=== PATIENT | female | born 1945 | race Caucasian/White ===

== ENCOUNTER → 2017-04-22 13:28 | Outpatient (CLI) | payer MEDICARE, OTHER, SELFPAY ==
[2017-04-22 16:15] LABS: Ferritin 570 ng/mL (8-252); Iron 78 ug/dL (50-170); Iron Binding Capacity,Total 204 ug/dL (250-450); PERCENT IRON SATURATION 38.2 % (15.0-55.0)
== END ==
PROVIDERS: Family Provider Nurse Practitioner Primary Care; PCP Nurse Practitioner Primary Care; Visit Provider Internal Medicine Nephrology
DX: N18.4 Chronic kidney disease, stage 4 (severe) (principal); D63.1 Anemia in chronic kidney disease
CPT/HCPCS: 36415; 82728; 83540; 83550

== ENCOUNTER 2017-07-25 13:00 | Outpatient (RCR) | payer MEDICARE, OTHER, SELFPAY ==
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
--- NOTE | 2017-07-25 13:00 | DT_ITS ---
This patient was seen during an EMR downtime July 25, 2017 - August 01, 2017. This patient may have a combination of paper and electronic documentation or all paper documentation. All documentation is viewable within the e-chart portion of [facility] for each patient visit.
--- NOTE | 2017-08-21 11:55 | HP.PTDCSUM ---
HP - PT D/C Summary It has been my pleasure to treat ISMAEL Cole LOSINGER under orders from Yordan Patten, for the diagnosis of OA LEFT HIP for a total of 8 visit(s). Discharge Date: 07/25/17 Please see the following information for a summary of their discharge status. - Subjective Subjective: PATIENT REPORTS THAT HANGING IN THE POOL RELIEVES HER PAIN. SOME OF THE EX'S MADE HER BACK/BUTTOCKS SORE. NO LEFT HIP PAIN. NO RIGHT HIP PAIN. ALEXANDREA BUTTOCK PAIN CURRENTLY 5/10 SORE AND IT COMES AND GOES. L LOW BACK PAIN 4/5. OVER-ALL - ABLUT THE SAME BUT IT FELT GOOD AMAN IN THE POOL. STATES SHE WAS REFERRED TO DR. HARMON BY DR. PATTEN AND UPCOMING APPOINTMENT TUESDAY. - Pain R hip Pain Intensity (Out of 10): 5 L Hip Pain Intensity (Out of 10): 0 LB Pain Intensity (Out of 10): 4 - Objective Objective/Function: THIS PATIENT AMBULATES INDEP'LY INTO PT WITH MILD SOB, DECREASED CADANCE, INCREASED TRUNK FLEX AND NO AD. UNALBE TO INDEP TRANSFER SIT TO STAND WITHOUT UE ASSIST. MMT: ALEXANDREA LE'S 5/5 EXCEPT HIPS 4/5. LUMBAR MVMT LOSS: FLEX - VERY MINIMAL WITH INCREASED ALEXANDREA BUTTOCK PAIN. EXT - RICK, RIGHT SG - RICK, LEFT SG - RICK. C/O MILD INCREASED LBP WITH LUMBAR ROM TESTING. LIMITED LEFT HIP ROM ALL PLANES. LEFT GROIN PAIN WITH LEFT HIP FLEX/IR/ER TESTING. POSITIVE SHELLEY TEST LEFT. Due to electronic downtime procedure, the information from July 25 2017 through July 31 2017 was electronically scanned into the medical record - Goals Goal 1:: DECREASE C/O LLE PAIN Goal Progress: Not Progressing Goal 2:: IMPROVE STANDING, WALKING AND ADL FUNCTION Goal Progress: Not Progressing Goal 3:: INSTRUCT IN PROPHYLAXIS Goal Progress: Not Progressing - Plan Plan: D/C DUE TO LACK OF PROGRESS. PATIENT PLANS TO SEE DR. HARMON 07/28/17. - D/C Information If there are questions or concerns regarding this patient's physical therapy, please feel free to call me at [phone]. Thank you for the referral of this patient. Sincerely, Lin Servin
== END 2017-07-25 19:00 | disposition home or self-care (01) ==
LOC: PT 13:00
PROVIDERS: Family Provider Nurse Practitioner Primary Care; PCP Nurse Practitioner Primary Care; Visit Provider Orthopaedic Surgery
DX: M16.12 Unilateral primary osteoarthritis, left hip (principal)
CPT/HCPCS: 97113; 97162; 97164; 97530

== ENCOUNTER 2017-11-16 09:46 | Inpatient (IN) | payer MEDICARE, OTHER, SELFPAY ==
[2017-11-15 09:35] VITALS: BP 144/70; PULSE 55; RESP 16; TEMP 37.2; O2SAT 97; BMI 29.9
[2017-11-15 10:54] LABS: Absolute Lymphocyte Count 1.85 X10^3/ul (0.83-4.51); Absolute Neutrophil Count 6.4 X10^3/uL (2.0-7.7); Basophil# 0.05 X10^3/uL; Basophil% 0.5 % (0-1); Eosinophil# 0.38 X10^3/uL; Hematocrit 28.1 % (37-47); Hemoglobin 8.7 g/dl (12.0-15.0); Lymphocyte # 1.85 X10^3/ul (4.0); Lymphocyte % 19.5 % (19-41); Mean Corpuscular Hgb 29.3 pg (27.0-32.0); Mean Corpuscular Volume 94.6 fL (81-99); Monocyte# 0.82 X10^3/uL; Monocyte% 8.6 % (0-10); Neutrophil # 6.36 X10^3/uL (2.7-7.7); Platelet Count 235 K/mm3 (150-450); RBC Distribution Width CV 15.3 % (11.6-14.6); RBC Distribution Width SD 52.4 fl (35.1-43.9); Red Blood Count 2.97 M/mm3 (4.2-5.4); White Blood Count 9.5 K/mm3 (4.4-11.0)
[2017-11-15 10:58] LABS: POSITIVE COUNT NO; POSITIVE DIFFERENTIAL NO; POSITIVE MORPHOLOGY NO
[2017-11-15 11:01] LABS: International Normalized Ratio 1.1; Partial Thromboplast Time 32.4 Seconds (24.1-36.2); Prothrombin Time (Protime)PT. 14.4 SECONDS (11.7-14.9)
[2017-11-15 11:25] LABS: Anion Gap 9 (5-15); BUN 46 mg/dL (7-18); BUN/Creat Ratio 22.2 RATIO (10-20); Calcium,Total 9.3 mg/dL (8.5-10.1); Chloride 108 mmol/L (98-107); Creatinine, Serum 2.07 mg/dL (0.55-1.02); EST Glomerular Filtration Rate 25 mL/min (>60); Est Glom Filt Rate - Afr Amer 30 mL/min (>60); Estimated Creatinine Clearance 20.59 ml/min; Glucose 82 mg/dL (74-106); Potassium 4.2 mmol/L (3.5-5.1); Sodium Level 140 mmol/L (136-145)
--- NOTE | 2017-11-15 16:23 | SDCEKG_ITS ---
Test Reason : Blood Pressure : / mmHG Vent. Rate : 056 BPM Atrial Rate : 056 BPM P-R Int : 186 ms QRS Dur : 078 ms QT Int : 436 ms P-R-T Axes : 030 -18 001 degrees QTc Int : 420 ms Sinus bradycardia Voltage criteria for left ventricular hypertrophy Abnormal ECG Confirmed by DEBI PEÑA, VINH ([id number]), newspaper or periodical editor JESS BIRD ([id number]) on 11/18/2017 1:37:52 PM Referred By: Jose L Anglin Confirmed By:VINH CARRERA MD
[2017-11-16] VITALS (11 sets, daily range): BP systolic 111–187; BP diastolic 63–99; PULSE 18–60; RESP 16–18; TEMP 36.1–36.9; O2SAT 94–99; BMI 29.9
[2017-11-16] MEDS: Acetaminophen 500 MG Tablet 1000 MG PO ×2 (10:35→22:06)
[2017-11-16] MEDS: oxyCODONE HCl Cr 10 MG Tablet PO (10:35)
[2017-11-16] MEDS: Cefazolin 2 GM in 0.9% Normal Saline 100 ML IV (11:50)
--- NOTE | 2017-11-16 13:21 | PCM.OPRPT ---
Report of Operation Date of Procedure: 11/16/17 Pre-Operative Diagnosis: Left shoulder osteoarthritis. left shoulder 3 part proximal humerus fracture Post-Operative Diagnosis: Left shoulder osteoarthritis. Left shoulder 3 part proximal humerus fracture Surgery/Procedure Performed:: Left reverse total shoulder replacement Description of Surgical Findings:: Shoulder tuberosities repaired advocacy director: Jose A Booth Type of Anesthesia:: General Anesthesiologist: Henrry Tobin Special Medications: 2 g Ancef, 1 g TXA at incision, 1 g TXA closure, 10 mg Decadron, joint cocktail (5 mg Duramorph, 30 mL of 0.5% Ropivicaine, 1000 units of epinephrine, 30 mg of Toradol), 1 g vancomycin Specimen's removed: Femoral head fracture fragment Estimated Blood Loss (mL): 100 Fluids Replaced: 1200 mL crystalloid Description of Procedure: Components used 1. Equinox glenoid baseplate from zerved for reverse TSA 2. Cande reunion 32 mm, +2 mm Glenosphere 3. Cande reunion 32 mm, 4 mm humeral liner 4. Equinox reverse TSA humeral adapter tray for mm 5. Equinox humeral stem fracture stem 12 mm size Brief history/Operative indications: 72 yo F with history of left shoulder pain the part proximal humerus fracture. After discussion of risk and benefits of reverse total shoulder replacement including but not limited to blood loss, DVTs, PEs, nerve vessel damage, infection, general risk of anesthesia including loss of life, instability and stiffness patient demonstrating understanding wish to proceed was able to sign informed consent. Medical clearance was obtained. Procedure: On the date of the procedure, patient's L upper extremity was marked in the preoperative area. Patient was taken back to the operating room where they were placed on the table in the supine position. Anesthesia assumed control of the C-spine and airway, then administered anesthetic. All bony prominences were identified well-padded, the head was secured and the patient was placed in the beachchair position at about 35? inclination. Anesthesia remained in control of the C-spine airway throughout the remainder of the procedure. Patient was then appropriately fastened to the table and the L upper extremity was prepped in a sterile fashion. The surgeons then scrubbed. Upon reentering the room, the L upper extremity was draped in a sterile fashion and the incision was marked out. Timeout was called, everyone agreed upon the side, the site, the procedure to be performed, patient identity and antibiotics given. Incision was taken down through skin and subcutaneous tissue, fat down to fascia. The stripe of the deltopectoral interval and cephalic vein were identified and blunt dissection was used to retract the deltoid. The cephalic vein was retracted laterally. Clavipectoral fascia was then incised and a cobra retractor was placed in the wound. The proximal one third of the pectoralis major insertion was released. Pectoralis tendon insertion was used to tenodesed the biceps tendon which was identified in the bicipital groove. Tenodesis was done with #1 Vicryl. Proximally we followed the biceps tendon after transecting it into the rotator interval. The rotator interval was split and the arm was externally rotated. The split was 1 cm medial to the bicipital groove. A lesser tuberosity fragment was created performing an osteotomy and tagged with #2 FiberWire. We released down the anterior portion of the humeral head and a beasley elevator was used to release the inferior portion of the humeral head. The arm was externally rotated femoral head fragment was identified and removed from the wound. The greater tuberosity fragment was then identified and pulled from the posterior shoulder and tagged with a #2 FiberWire. Once the fracture fragments were identified and tagged in the humeral head fragment was removed the humerus was retracted out of the way and the glenoid was exposed. After exposing the glenoid, the labrum and the remaining proximal biceps were debrided. At this time we are able to view the entire outer edge of the glenoid. A central pin was placed we sequentially reamed over this central pin to 32mm. Once this was completed the central pedicle was drilled. The glenoid baseplate was impacted into place. Wound was closely irrigated out with normal saline we then drilled sequentially for 2 screws. Screws were placed superiorly and inferiorly and tightened down the screws. Once the screws were appropriately tightened into place the glenoid baseplate was compressed against the exposed subchondral bone. A 32 mm, +2 mm glenosphere was impacted into place engaging the Chen taper. Attention was then turned towards the humerus. The humerus was again externally rotated exposing the proximal portion of the humerus. Central canal finder was then used to open up the canal. We reamed to a 12mm reamer. We then broached to a 12mm stem. We trialed the 4mm liner, with the 4mm humeral baseplate. We obtained an adequate reduction at this time with a nice stable shoulder. Good internal rotation to the gluteus, forward elevation to 140?, external rotation to 20?. Final components were then assembled on the back table, trials were removed and the wound was copiously irrigated with normal saline after dislocating the shoulder. Once the final components were assembled they were impacted into place. Shoulder was then reduced and found to be stable with good range of motion. The wound was copiously irrigated out normal saline and the tuberosity fragments were repaired using FiberWire sutures. The wound was then copiously irrigated out with a 1 L normal saline lavage. The deltopectoral fascia was then closed using #1 Vicryl skin was closed using 2-0 Vicryl interrupted sutures and final skin closure was done with 3-0 Monocryl. Steri-Strips are placed for final skin closure. Sterile dressing was placed patient was then placed in a sling and awakened by anesthesia. Patient was then transferred to the PACU for recovery. Postoperative plan: Patient will be admitted to the hospital overnight. They will get physical therapy starting in 2 weeks with normal postoperative regimen. Patient is not able to take aspirin for DVT prophylaxis and is also a fall risk therefore based on her overall risk from a upper extremity injury will not place her on DVT prophylaxis at this time. The first postoperative appointment will be in 2 weeks for wound check and initiation of phase 1 physical therapy. During the course of the procedure the physician promotional advertising assistant played a vital role. His intimate knowledge of my steps in the procedure aided in safe and expedient completion of the procedure. The PA played a vital rolls in positioning particularly in obtaining the appropriate beach chair position and securing the patient's body and head to the table. The PA was also vital in the retraction of soft tissues during the exposure and especially the glenoid work as this is a vital part of the procedure to prevent neurovascular damage. the PA was also vital and protecting soft tissues during times of bony cuts and reaming. He also played a vital role in closure with my direct supervision. The PA was also important during reduction and dislocation of the joint and trials intraoperatively. Grafts/Implants Used: Magdiel reunion reverse total shoulder, fracture stem - Complications None - Admit VTE Documentation VTE Present on Admission: No VTE Mechan Device Prophylaxis: SCD's VTE Pharm Prophylaxis ordered?: No Reason prophylaxis not ordered:: Medical Contraindication - Patient unable to take aspirin
[2017-11-16] MEDS: Vancomycin IV 1,000 MG/200 ML BAG 200 MG IV (13:41)
--- NOTE | 2017-11-16 14:28 | RAD_ITS ---
STUDY: X-RAY - LEFT SHOULDER REASON FOR EXAM: Female, 72 years old. Total shoulder replacement. TECHNIQUE: Single frontal view(s) of the shoulder. COMPARISON: None. FINDINGS: The patient is status post left reverse shoulder replacement. There is good alignment. Postoperative soft tissue changes. RAD/Shoulder One View IMPRESSION: Status post left reverse shoulder replacement. There is good alignment. Postoperative soft tissue changes. Increased markings at the left lung base suggestive of left basilar atelectasis Electronically Signed: Zachariah Cano MD at 15:07 EDT Tel [phone], Service support ,
[2017-11-16] MEDS: Lactated Ringers 1,000 ML 125 ML IV (15:42)
[2017-11-16] MEDS: Losartan Potassium 100 MG Tablet PO (15:42)
[2017-11-16] MEDS: Ferrous Sulfate 325 MG Tablet PO (18:16)
[2017-11-16] MEDS: Folic Acid 1 MG Tablet PO (18:16)
[2017-11-16] MEDS: Hydroxychloroquine 200 MG Tablet PO (18:16)
[2017-11-16] MEDS: Cefazolin 1 GM/50 ML BAG IV (19:58)
[2017-11-16] MEDS: Pantoprazole Sodium 40 MG Tablet PO (20:00)
[2017-11-16] MEDS: Gabapentin 100 MG Capsule PO (22:06)
[2017-11-16] MEDS: Atorvastatin Calcium 20 MG Tablet PO (22:06)
[2017-11-16] MEDS: Allopurinol 100 MG Tablet 200 MG PO (22:07)
[2017-11-16] MEDS: buPROPion (XL) 300 MG TABLET.XL PO (22:09)
[2017-11-17 01:37] VITALS: BP 137/71; PULSE 56; RESP 16; TEMP 36.8; O2SAT 94
[2017-11-17] MEDS: Cefazolin 1 GM/50 ML BAG IV (03:58)
[2017-11-17] MEDS: 0.9% NaCl Peripheral Flush Adult/Peds IV (03:58)
[2017-11-17] MEDS: oxyCODONE 5 MG Tablet PO ×2 (05:14→11:59)
[2017-11-17] MEDS: Acetaminophen 500 MG Tablet 1000 MG PO (06:00)
[2017-11-17 07:31] VITALS: BP 148/63; PULSE 66; RESP 14; TEMP 36.6; O2SAT 95
[2017-11-17] MEDS: Calcitriol 0.25 MCG Capsule 0.5 MCG PO (07:43)
[2017-11-17] MEDS: Hydroxychloroquine 200 MG Tablet PO (07:44)
[2017-11-17] MEDS: Losartan Potassium 100 MG Tablet PO (07:44)
[2017-11-17] MEDS: Atenolol 50 MG Tablet PO (07:44)
[2017-11-17] MEDS: Folic Acid 1 MG Tablet PO (07:44)
[2017-11-17] MEDS: Gabapentin 100 MG Capsule PO (07:44)
[2017-11-17] MEDS: Ferrous Sulfate 325 MG Tablet PO (07:44)
[2017-11-17] MEDS: Glucerna Shake 120 ML LIQUID PO (07:47)
--- NOTE | 2017-11-17 10:03 | PCM.PN.ORT ---
Subjective: The patient was sitting in bed upon examination. Patient denies any chest pain, shortness of breath, dizziness, lightheadedness, nausea or vomiting, or calf pain. Pain is not controlled on medications. She is currently complaining of 9/10 pain in the left shoulder. She does not feel the medications are helping. Patient does see pain management doctor for low back problems and has been on narcotics. No adverse overnight events. Objective: Dressing is C/D/I Ultra-sling fitting appropriately Sensation intact to axillary, radial, median, and ulnar distribution Motor intact to AIN, PIN, and ulnar nerve - Physical Exam General: Alert, Oriented x3, Cooperative, No apparent distress Vital Signs Temp Pulse Resp BP Pulse Ox 97.8 F 66 14 148/63 H 95 11/17/17 07:31 11/17/17 07:31 11/17/17 07:31 11/17/17 07:31 11/17/17 07:31 Oxygen Delivery Method Room Air Weight: 79 kg Body Mass Index (BMI) 29.9 Intake and Output for Last 24 Hours 11/15/17 11/16/17 11/17/17 23:59 23:59 23:59 Intake Total 3043 / 3043 1089.9 / 1089.9 Output Total 850 / 850 1100 / 1100 Balance 2193 / 2193 -10.1 / -10.1 Microbiology Past 72 Hours 11/15/17 10:05 Nasal Screen MRSA/MSSA - Final Swab (Method) Laboratory Tests Past 24 Hrs 11/16/17 10:05 Blood Type A POSITIVE Antibody Screen NEGATIVE Medical Necessity - Tobacco Use Smoking Status: Never smoker Assessment/Plan All Active Problems History of arthroplasty of right hip (Acute) 1. S/P left reverse total shoulder arthroplasty secondary to osteoarthritis and 3 part proximal humerus fracture POD #1 2. Continue Pain Medications: Tylenol and OxyIR, MS Contin will be added today due to pain not being controlled 3. PT/OT: Continue UltraSling at all times, okay to come out to work on range of motion of the left elbow, hand, and wrist 3-4 times daily. No range of motion of left shoulder until 2-week postop visit. Plan will be for outpatient physical therapy after 2-week follow-up. 4. Encouraged Incentive Spirometry 5. Disposition: Plan will be for possible discharge home today if pain is controlled on additional medication. Prescriptions will be attached to chart. Patient will follow-up per postop instructions.
[2017-11-17] MEDS: morphine SR 15 MG Tablet PO (10:07)
--- NOTE | 2017-11-17 10:14 | DCINST_ITS ---
Discharge Diet: No Restrictions Discharge Activity: May Not Drive May shower in (days): 1 - Turned dressing away from water Ice area for (Minutes): 20 - Ice area for 20 minutes each hour while awake Weight Bearing Status: No weight bearing - Left upper extremity Call your doctor if your incision/area has: Continuous Slow Oozing, Sudden Increased Bleeding, Increased Pain/ Swelling, Increased Redness, Foul Smelling Discharge Call your doctor if you observe: Fever of 101 or Higher, Coldness, Increased Pain, Numbness or Tingling, Change in Color Remove Dressing in (days):: 4 - Okay to remove dressing on November 21, 2017 Allergies/Adverse Reactions: Allergies aspirin Adverse Reaction (Verified 11/15/17 09:25) not allowed to take aspirin codeine Adverse Reaction (Verified 11/15/17 09:25) Nausea morphine Adverse Reaction (Verified 11/15/17 09:25) Nausea NSAIDS (Non-Steroidal Anti-Inflamma Adverse Reaction (Verified 11/15/17 09:25) not supposed to take ramipril [From Altace] Adverse Reaction (Verified 11/15/17 09:25) COUGH Medications to take at Discharge Allopurinol [Zyloprim] 200 mg PO QHS 11/06/15 Atenolol [Tenormin (beta steve)] 50 mg PO DAILY 11/06/15 Gabapentin [Neurontin] 100 mg PO DAILY 11/06/15 Gabapentin [Neurontin] 100 mg PO QHS 11/06/15 Hydroxychloroquine [Plaquenil] 200 mg PO BIDCM 11/06/15 Leflunomide [Arava] 20 mg PO DAILY 11/06/15 Omeprazole [Prilosec] 40 mg PO QHS 11/06/15 Simvastatin [Zocor] 40 mg PO QHS 11/06/15 buPROPion XL [Wellbutrin Xl] 300 mg PO QHS 11/06/15 Zolpidem Tartrate [Ambien] 5 mg PO QHS PRN 03/23/16 Folic Acid 0.8 mg PO DAILY@0800 05/17/16 Calcitriol [Rocaltrol] 0.5 mcg PO DAILY 11/15/17 Darbepoetin Asúl in Polysorbat [Aranesp] 100 mcg SC PRN PRN 11/15/17 Iron Polysaccharide Complex [Ferrex 150] 150 mg PO DAILYCM 11/15/17 Losartan Potassium [Cozaar] 100 mg PO DAILY 11/15/17 Acetaminophen [Tylenol] 1,000 mg PO Q8 #90 tab 11/17/17 Oxycodone [Oxyir] 5 - 10 mg PO Q4H PRN PRN 5 Days #60 tab 11/17/17 Senna/Docusate Sodium [Senokot-S] 2 tab PO BID PRN PRN #20 tab 11/17/17 morphine SR tablet [Ms Contin] 15 mg PO BID 4 Days #8 tab 11/17/17 The following prescriptions were given: Oxycodone [Oxyir] 5 - 10 mg PO Q4H PRN PRN 5 Days #60 tab PRN Reason: Pain Acetaminophen [Tylenol] 1,000 mg PO Q8 #90 tab Senna/Docusate Sodium [Senokot-S] 2 tab PO BID PRN PRN #20 tab PRN Reason: Constipation morphine SR tablet [Ms Contin] 15 mg PO BID 4 Days #8 tab Primary Care Physician: Evangelina Reddy NP-C [Primary Care Provider] - Test Results: Test results from this visit will be discussed in further detail at your follow- up appointment, if applicable. Please Follow Up With: Jose A Booth PA-C When: 11/30/17 @ 8:15 am Please Follow Up With: [facility] When: 11/30/17 @ 9:00 am with [place]
--- NOTE | 2017-11-17 10:40 | CASEMGMT ---
CIRILO CHAUDHARY Face to Face with patient for initial transition planning/care coordination assessment. RN NEENA introduced self and role at [facility]. Patient sitting in chair, alert and oriented. Patient willing to participate in assessment and is able to answer all questions appropriately. Care providers, pharmacy, and demographics verified. See link attached. Pt wishes to discharge home, denies need for home health at this time. Pt has follow up appts w/ Javier MCMILLAN and then PT @ [facility] on Nov 30. Pt states she has no further needs or concerns at this time. CM to follow for discharge planning needs that may arise. Disposition Plan: Home w/out-pt PT.
--- NOTE | 2017-11-17 11:15 | CASEMGMT ---
Social Work Note CIRILO Samaniego informed this worker that pt wishes to speak to SW about Living Will, states pt already completed HCPOA but not sure about Living Will. SW looked at chart and both HCPOA and Living Will have been completed and scanned into pt's chart. SW in to speak with pt. Pt's spouse present in room. Pt gave this worker permissions to speak to her in front of her spouse. Pt states that she knew she completed HCPOA but was unsure about Living Will. SW explained that Living Will has also been completed and has been scanned into system at [facility]. Pt requesting copy on Living Will. SW provided pt with copy of Living Will to pt. Pt asked this worker about insurance paying for lift chairs. SW explained that CIRILO CHAUDHARY can follow up with pt in regards to lift chair but per this workers understanding a lift chair would be private pay. Ariane Atwood VERIFICATION MANAGER, MARINATOR
== END 2017-11-17 13:31 | disposition home or self-care (01) | DRG 483 ==
LOC: ACINP 09:47 → MS3 11-17 07:25
PROVIDERS: Admitting Provider Specialist; Family Provider Nurse Practitioner Primary Care; PCP Nurse Practitioner Primary Care; Visit Provider Specialist
PROC: 0RRK00Z Replacement of Left Shoulder Joint with Reverse Ball and Socket Synthetic Substitute, Open Approach (ICD-10-PCS; CPT 23472; principal; 2017-11-16 11:50)
DX: S42.232A 3-part fracture of surgical neck of left humerus, initial encounter for closed fracture (principal); W10.8XXA Fall (on) (from) other stairs and steps, initial encounter; Y92.9 Unspecified place or not applicable; M19.012 Primary osteoarthritis, left shoulder; D64.9 Anemia, unspecified; Z23 Encounter for immunization; E78.00 Pure hypercholesterolemia, unspecified; K21.9 Gastro-esophageal reflux disease without esophagitis; I12.9 Hypertensive chronic kidney disease with stage 1 through stage 4 chronic kidney disease, or unspecified chronic kidney disease; N18.3 Chronic kidney disease, stage 3 (moderate)
CPT/HCPCS: 36415; 73020; 80048; 85025; 85610; 85730; 86850; 86900; 87081; 93005; 97166; C1713; C1776; J7120; 90686; A4216

== ENCOUNTER → 2017-12-02 08:36 | Outpatient (CLI) | payer MEDICARE, OTHER, SELFPAY ==
[2017-12-02] VITALS (7 sets, daily range): BP systolic 132–184; BP diastolic 49–74; PULSE 51–65; RESP 16–18; TEMP 35.8–37.2; O2SAT 99–100; BMI 29.7
[2017-12-02] MEDS: Furosemide 20 MG/2 ML VIAL IV (12:11)
== END ==
PROVIDERS: Family Provider Nurse Practitioner Primary Care; PCP Nurse Practitioner Primary Care; Referring Provider Internal Medicine Hematology & Oncology; Visit Provider Internal Medicine Hematology & Oncology
DX: D64.9 Anemia, unspecified (principal)
CPT/HCPCS: 36430; 86850; 86900; 86920; 86922; J7040; P9016; P9040; A4216; J1940

== ENCOUNTER → 2018-01-16 07:15 | Outpatient (CLI) | payer MEDICARE, OTHER, SELFPAY ==
--- NOTE | 2018-01-16 07:17 | BI_ITS ---
MAMMOGRAPHY - BILATERAL SCREENING REASON FOR EXAM: Female, 72 years old. Routine annual screening examination. PERTINENT HISTORY: Non-contributory. TECHNIQUE: Digital bilateral breast mariaelena (3D mammographic acquisition) in the CC and MLO projections. 2-D mediolateral oblique (MLO) and craniocaudad (CC) views of both breasts were obtained. CAD: Full Field Digital Mammography with Computer Added Detection was performed. COMPARISON: Comparison is made with prior examination dated January 19, 2017 and November 12, 2015. FINDINGS: Breast Composition: There are scattered areas of fibroglandular density. There are no dominant masses or suspicious calcifications. No other significant abnormalities are identified. There has been no significant change since the prior study. BI/SCREENING MAMM (CAD), BILAT IMPRESSION: Stable bilateral screening mammogram. Yearly follow-up mammogram recommended. (A) ASSESSMENT CATEGORY: BIRADS Category 1: Negative. A letter regarding these results will be sent to the patient by the facility within 30 days. Approximately 10% of breast cancers are not detected by mammography. A normal mammogram should not delay biopsy of a clinically suspicious abnormality. [id number] Electronically Signed: Zachariah Cano MD at 10:28 EST Tel [phone], Service support ,
== END ==
PROVIDERS: Family Provider Nurse Practitioner Primary Care; PCP Nurse Practitioner Primary Care; Referring Provider Nurse Practitioner Primary Care; Visit Provider Nurse Practitioner Primary Care
DX: Z12.31 Encounter for screening mammogram for malignant neoplasm of breast (principal)
CPT/HCPCS: 77063; 77067

== ENCOUNTER → 2018-09-13 13:01 | Outpatient (CLI) | payer MEDICARE, OTHER, SELFPAY ==
[2017-12-02 08:58] VITALS: BMI 29.7
--- NOTE | 2018-09-13 | SOF_PTH ---
PATIENT: ISMAEL STANLEY LOC: [facility] U#:[id number] AGE/SX: 79/F ROOM: RE09/13/[address]: Dr. Mitch Landon DDS : 1945 BED: DIS: SPEC #: [id number] RECD: 09/13/18 12:54 STATUS: STEPHANIE BARB #: [id number] CUCO: 09/13/18 00:[address]: Mitch Landon DEPT: SURGICAL PATHOLOGY RECD BY: Merritt Espinosa ENTERED: 09/13/18 13:17 SP TYPE: SOFT TISS OTHR DR: Evangelina Reddy, ROTOR CASTING MACHINE OPERATOR-C Tissues: Mouth, NOS Procedures: Surgery Specimen Level IV HEADER OPERATION: Lip biopsy PRE-OP DIAGNOSIS: Probable fibroma TISSUE SUBMITTED: Soft tissue MICROSCOPIC DIAGNOSIS Lesion of lip, biopsy: Consistent with polypoid fibroma. AM:bean 09/14/18 MICROSCOPIC DESCRIPTION Slides are reviewed. GROSS DESCRIPTION Received is one container labeled with the patient's name and not further designated. The specimen consists of a piece of bain mucosal tissue measuring 0.3 x 0.2 x 0.1 cm. The entire specimen is submitted in one cassette. / SJ:bean 09/13/18 TC:1 CPT: 97550
== END ==
PROVIDERS: Family Provider Nurse Practitioner Primary Care; PCP Nurse Practitioner Primary Care; Referring Provider Dentist Oral and Maxillofacial Surgery; Visit Provider Dentist Oral and Maxillofacial Surgery
DX: D37.01 Neoplasm of uncertain behavior of lip (principal)
CPT/HCPCS: 88305

== ENCOUNTER → 2018-12-25 13:45 | Outpatient (CLI) | payer MEDICARE, OTHER, SELFPAY ==
--- NOTE | 2018-12-25 13:47 | ECHOCS_ITS ---
Reason For Study: SOB Procedure This was a 2D Doppler, Color Flow transthoracic echocardiogram. The study was technically difficult. Contrast injection was performed. Exam performed in department. Left Ventricle Normal LV size. Left ventricular systolic function is normal. The estimated ejection fraction is 65 %. Stage 1 diastolic dysfunction. No regional wall motion abnormalities noted. Right Ventricle Normal RV size. Normal systolic function. Atria Normal left atrium. Normal right atrium. Mitral Valve Normal mitral valve. Tricuspid Valve The tricuspid valve is not well visualized. Mild tricuspid valve insufficiency. Aortic Valve The aortic valve is not well visualized. Mild (1+) aortic valve insufficiency. Pulmonic Valve The pulmonic valve is not well visualized. Great Vessels Normal aortic root. The pulmonary artery is normal size. Normal inferior vena cava. Pericardium/Pleural No pericardial effusion. Medication 22 gauge I.V. with prn adaptor inserted into right arm. Diluted definity 2ml given slow IV push to enhance endocardial definition. MMode/2D Measurements & Calculations LVIDd: 4.2 cm IVSd: 1.3 cm LA dimension: 4.2 cm LVIDs: 2.7 cm LVPWd: 1.1 cm FS: 35.0 % LAV(MOD-bp): 61.8 ml LVAd ap4: 31.9 cm2 SV(MOD-sp4): 60.5 ml LAV(MOD-bp) Indexed: 33.0 ml/m2 EDV(MOD-sp4): 111.4 ml LAV(MOD-sp2): 64.6 ml EDV(sp4-el): 113.6 ml LAV(MOD-sp4): 54.7 ml LVAs ap4: 19.7 cm2 ESV(MOD-sp4): 50.9 ml ESV(sp4-el): 50.8 ml EF(MOD-sp4): 54.3 % EF(sp4-el): 55.3 % SV(sp4-el): 62.8 ml LA A4 area: 19.6 cm2 Time Measurements MV dec time: 0.42 sec Doppler Measurements & Calculations MV E max mike: 60.9 cm/sec Lat Peak E' Mike: 6.1 cm/sec Med Peak E' Mike: 5.7 cm/sec MV A max mike: 113.0 cm/sec E/E' lat: 10.0 E/E' med: 10.7 MV E/A: 0.54 MV V2 max: 118.5 cm/sec MV P1/2t max mike: 78.0 cm/sec Ao V2 max: 101.6 cm/sec MV max P.6 mmHg MV P1/2t: 154.5 msec Ao max P.1 mmHg MV V2 mean: 56.5 cm/sec MV mean P.5 mmHg MV dec slope: 147.9 cm/sec2 MV V2 VTI: 35.5 cm MVA(P1/2t): 1.4 cm2 AI max mike: 440.0 cm/sec LV V1 max: 94.3 cm/sec PA V2 max: 90.6 cm/sec AI max P.4 mmHg LV V1 max P.6 mmHg AI dec slope: 177.4 cm/sec2 AI P1/2t: 726.6 msec Interpretation Summary Normal LV size. Left ventricular systolic function is normal. The estimated ejection fraction is 65 %. Stage 1 diastolic dysfunction. Contrast injection was performed. Ordering Physician: RUPERTO HONEYCUTT Referring Physician: [facility] Doctor, Out of Performed By: Lorenzo Nieto RCS
== END ==
PROVIDERS: Family Provider Nurse Practitioner Primary Care; PCP Nurse Practitioner Primary Care
DX: Z01.818 Encounter for other preprocedural examination (principal); R94.39 Abnormal result of other cardiovascular function study; I12.9 Hypertensive chronic kidney disease with stage 1 through stage 4 chronic kidney disease, or unspecified chronic kidney disease; N18.4 Chronic kidney disease, stage 4 (severe); R06.02 Shortness of breath; D64.9 Anemia, unspecified
CPT/HCPCS: 93306; Q9957; A4216; C8929

== ENCOUNTER → 2019-04-17 13:10 | Outpatient (CLI) | payer MEDICARE, OTHER, SELFPAY ==
--- NOTE | 2019-04-17 13:19 | BI_ITS ---
MAMMOGRAPHY - BILATERAL SCREENING REASON FOR EXAM: Female, 73 years old. Routine annual screening examination. PERTINENT HISTORY: No pertinent history TECHNIQUE: Digital bilateral breast jess (3D mammographic acquisition) in the CC and MLO projections. 2-D mediolateral oblique (MLO) and craniocaudad (CC) views of both breasts were obtained. CAD: Full Field Digital Mammography with Computer Added Detection was performed. COMPARISON: None. FINDINGS: Breast Composition: Scattered breast density There are no dominant masses or suspicious calcifications. No other significant abnormalities are identified. BI/SCREEN MAMM (CAD) W/JESS BILAT IMPRESSION: Stable bilateral screening mammogram. Yearly follow-up mammogram recommended. (A) ASSESSMENT CATEGORY: BIRADS Category 1: Negative. A letter regarding these results will be sent to the patient by the facility within 30 days. Approximately 10% of breast cancers are not detected by mammography. A normal mammogram should not delay biopsy of a clinically suspicious abnormality. [id number] Electronically Signed: Chad Vazquez, at 18:08 EST Tel , Service support ,
== END ==
PROVIDERS: PCP Nurse Practitioner Primary Care; Referring Provider Nurse Practitioner Primary Care; Visit Provider Nurse Practitioner Primary Care
DX: Z12.31 Encounter for screening mammogram for malignant neoplasm of breast (principal)
CPT/HCPCS: 77063; 77067

== ENCOUNTER 2019-05-03 12:43 | Emergency (ER) | payer MEDICARE, OTHER, SELFPAY ==
[2019-05-03 12:44] VITALS: BP 143/86; PULSE 95; RESP 16; TEMP 36.9; O2SAT 95; BMI 30.5
--- NOTE | 2019-05-03 12:54 | EKG12_ITS ---
Test Reason : CP Blood Pressure : / mmHG Vent. Rate : 093 BPM Atrial Rate : 093 BPM P-R Int : 214 ms QRS Dur : 072 ms QT Int : 344 ms P-R-T Axes : 050 -21 032 degrees QTc Int : 427 ms Sinus rhythm with 1st degree A-V block Minimal voltage criteria for LVH, may be normal variant Inferior infarct , age undetermined Cannot rule out Anterior infarct , age undetermined Abnormal ECG Confirmed by ATUL PEÑA, ALENA ([id number]), commercial production editor BERHANE LUCIO ([id number]) on 05/04/2019 1:08:20 PM Referred By: STERLING Confirmed By:WINSTON POLLARD MD
--- NOTE | 2019-05-03 12:57 | RAD_ITS ---
STUDY: X-RAY CHEST REASON FOR EXAM: Female, 73 years old. CP, 2 STENTS PLACED 04-23-2019, WAITING ON OTHER STENT PLACEMENT TECHNIQUE: Single AP portable view of the chest. COMPARISON: None. FINDINGS: EKG electrodes are seen. Electrodes from a pain stimulator device are seen in the region of the T7 vertebrae. Elevation of the right hemidiaphragm. No acute abnormality is seen. There is no demonstrated pleural abnormality. Normal size heart. Normal mediastinum and aminata. Normal visualized pulmonary arteries. There is atherosclerotic tortuosity of the aortic arch and descending thoracic aorta. There are diffuse degenerative changes of the visualized thoracic spine. Status post left shoulder replacement as well as prior fusion in the lower cervical spine. There is no demonstrated abnormality of the visualized soft tissue structures of the upper abdomen. RAD/Chest 1 View (Portable) IMPRESSION: No acute abnormality is seen. Electronically Signed: Zachariah Cano, at 13:31 EDT , Service support ,
[2019-05-03 13:01] VITALS: O2SAT 95
--- NOTE | 2019-05-03 13:01 | ED.DCSUM_ITS ---
History of Present Illness Chief Complaint: Chest Pain Informant: Patient Onset: Today Context: Sudden Onset Timing: Intermittent, Lasts - Seconds Current Severity: Mild Maximum Severity: Mild Narrative: The patient is a 73-year-old female with history of chronic kidney disease who was recently hospitalized at [facility] and received 2 stents that presents to the emergency department chest pain. Patient states that twice this morning, sharp, stabbing pain in her left chest that lasted seconds. She states that she is never really had pain like this before. She was found to have heart disease that she had prehospital EKG which was abnormal. She underwent stress testing and and ended up having heart catheterization. She is scheduled for 1 more stent, but I cannot all be done during one procedure because of her underlying kidney disease and she was unable to tolerate the dye load. She states she is been doing well with her outpatient therapy. She is been rehabbing without issue. She denies exertional chest pain, orthopnea, or weight gain. She does not think that she is on anticoagulants. Prior similar symptoms: Yes Recent Illness/Hospitalization: Yes Past Medical History - Allergies and Home Meds Allergies/Adverse Reactions: Allergies aspirin Adverse Reaction (Verified 05/03/19 12:53) not allowed to take aspirin codeine Adverse Reaction (Verified 05/03/19 12:53) Nausea morphine Adverse Reaction (Verified 05/03/19 12:53) Nausea NSAIDS (Non-Steroidal Anti-Inflamma Adverse Reaction (Verified 05/03/19 12:53) not supposed to take ramipril [From Altace] Adverse Reaction (Verified 05/03/19 12:53) COUGH Primary Care Physician: Evangelina Reddy NP-C [Primary Care Provider] - Prior records reviewed: Yes Past Medical History: - - Coronary vascular disease, chronic kidney disease Surgical History: tonsillectomy, - - Spinal stimulator, tubal ligation, nose cauterization, back surgery, left knee arthroscopic surgery, dental surgery, microdiscectomy, cervical fusion. Smoking Status: Never smoker - Family History Maternal Family History: Reports: No pertinent history Paternal Family History: Reports: No pertinent history Review of Systems General: Denies: Chills, Fever, Sweats Eyes: Denies: Visual changes - bilaterally, Diplopia ENT: Denies: Rhinorrhea, Sore throat Cardiovascular: Reports: Chest pain. Denies: Palpitations Respiratory: Denies: Dyspnea, Cough, Dyspnea on exertion Gastrointestinal: Denies: Abdominal pain, Nausea, Vomiting, Diarrhea, Melena, Hematochezia Genitourinary: Denies: Dysuria, Hematuria, Frequency Musculoskeletal: Denies: Back pain, Extremity Pain Skin: Denies: Rash, Wounds Neurological: Denies: Headache, Weakness, Numbness Physical Exam Vital Signs/Narrative: Vital Signs Temp Pulse Resp BP Pulse Ox 05/03/19 12:44 98.5 F 95 16 143/86 H 95 Inital Vital Signs reviewed: Yes General: Well nourished, Well developed, No Acute Distress Head: Normocephalic, Atraumatic Eyes: Perrl, EOMI ENT: Moist mucous membranes, No rhinorrhea Neck: Supple, Nontender Cardiovascular: Regular rate, Regular rhythm, No murmurs Respiratory: No distress, CTA bilaterally, Chest nontender Abdomen: Soft, Nontender, Nondistended, Normal bowel sounds Back: Nontender, Normal Inspection Extremities: Nontender, No edema Skin: Normal color, No rash Neurological: Alert, Oriented x3, Cranial nerves II-XII grossly intact, Normal Strength, Normal Sensation Psychological: Normal affect, Normal Mood Diagnostic/Tx/Re-eval Clinical Impression(s) from Imaging Studies Chest X-Ray 05/03/19 12:57 IMPRESSION: No acute abnormality is seen. Electronically Signed: Zachariah Cano, at 13:31 EDT , Service support , Abnormal Lab Results 05/03/19 05/03/19 13:10 13:10 WBC 6.4 RBC 3.04 L Hgb 9.2 L Hct 30.2 L MCV 99.3 H MCH 30.3 MCHC 30.5 L RDW Std Deviation 58.4 H RDW Coeff of Arik 16.0 H Plt Count 136 L MPV 10.5 Immature Gran % (Auto) 0.600 Neut % (Auto) 55.6 Lymph % (Auto) 26.0 Amador % (Auto) 8.6 Eos % (Auto) 7.8 H Baso % (Auto) 1.4 H Absolute Neuts (auto) 3.5 Absolute Lymphs (auto) 1.66 Nucleated RBC % 0 Sodium 140 Potassium 4.8 Chloride 111 H Carbon Dioxide 22.0 Anion Gap 7 BUN 32 H Creatinine 2.49 H Estim Creat Clear Calc 16.86 Est GFR (MDRD) Af Amer 24 L Est GFR (MDRD) Non-Af 20 L BUN/Creatinine Ratio 12.9 Glucose 151 H Calcium 9.0 Troponin I 0.094 H - Rhythm Strip Rhythm Strip: Sinus Rhythm Rate: 80 Ectopy: None - EKG Initial EKG Interpretation: Sinus Rhythm, No Acute Injury Pattern Prior: Unchanged - Medical Decision Making The patient presents to the emergency department with 2 episodes of 2 seconds of chest pain. She did recently undergo heart catheterization. She denies cough or shortness of breath. EKG was obtained which was sinus rhythm without acute ischemic change. Chest x-ray shows no evidence of volume overload, significant effusion, or other dangerous process. The patient is remained pain-free. Her troponin is mildly indeterminate at 0.09, but she also has chronic kidney disease. In light of this, my suspicion for acute coronary syndrome is low. I did discuss her care with cardiology at [facility]. I spoke with Dr. Price, the revenue analyst on-call. He did agree with plan for a 3-hour troponin. As long as this is not rapidly elevating, the patient will be discharged home to follow-up with her revenue analyst. She is comfortable with this plan of care. Impression 1. Chest pain-atypical ED Disposition - Plan for ED Patient: Instructions: CHEST PAIN, Uncertain Cause Referrals: Evangelina Reddy NP-C [Primary Care Provider] -
[2019-05-03 13:20] LABS: Absolute Lymphocyte Count 1.66 X10^3/uL (0.83-4.51); Absolute Neutrophil Count 3.5 X10^3/uL (2.0-7.7); Basophil# 0.09 X10^3/uL; Basophil% 1.4 % (0-1); Eosinophils% 7.8 % (0-5); Hematocrit 30.2 % (37-47); Hemoglobin 9.2 g/dL (12.0-15.0); Lymphocyte # 1.66 X10^3/ul (4.0); Mean Corp Hgb Conc 30.5 g/dL (32-36); Mean Corpuscular Hgb 30.3 pg (27.0-32.0); Mean Corpuscular Volume 99.3 fL (81-99); Mean Platelet Vol. 10.5 fl (6.2-12.0); Monocyte# 0.55 X10^3/uL; Monocyte% 8.6 % (0-10); NRBC Flagged by Analyzer 0 % (0-5); Neutrophil # 3.54 X10^3/uL (2.7-7.7); Neutrophil % 55.6 % (47-70); Platelet Count 136 K/mm3 (150-450); RBC Distribution Width SD 58.4 fl (35.1-43.9); Red Blood Count 3.04 M/mm3 (4.2-5.4); White Blood Count 6.4 K/mm3 (4.4-11.0)
[2019-05-03 13:39] LABS: Anion Gap 7 (5-15); BUN 32 mg/dL (7-18); BUN/Creat Ratio 12.9 RATIO (10-20); Chloride 111 mmol/L (98-107); Creatinine, Serum 2.49 mg/dL (0.55-1.02); EST Glomerular Filtration Rate 20 mL/min (>60); Est Glom Filt Rate - Afr Amer 24 mL/min (>60); Estimated Creatinine Clearance 16.86 ml/min; Glucose 151 mg/dL (74-106); Potassium 4.8 mmol/L (3.5-5.1); Sodium Level 140 mmol/L (136-145)
[2019-05-03 17:14] VITALS: BP 147/77; PULSE 98; RESP 16; O2SAT 97
== END 2019-05-03 17:15 | disposition home or self-care (01) ==
LOC: ED 13:00
PROVIDERS: Emergency Provider Emergency Medicine; PCP Nurse Practitioner Primary Care
DX: R07.89 Other chest pain (principal); I25.10 Atherosclerotic heart disease of native coronary artery without angina pectoris; N18.9 Chronic kidney disease, unspecified
CPT/HCPCS: 71045; 80048; 84484; 85025; 93005; 99285; A4216

== ENCOUNTER → 2019-09-03 15:30 | Outpatient (CLI) | payer MEDICARE, OTHER, SELFPAY ==
--- NOTE | 2019-09-03 15:40 | RAD_ITS ---
HISTORY: FALL LAST WEEK, NECK PAIN, PATIENT UNABLE RAISE CHIN OR HOLD STILL EXAMINATION/TECHNIQUE: XR Spine Cervical 2 or 3 Views: COMPARISON: April 24, 2014 FINDINGS: VERTEBRAE: Preserved vertebral body height. No fracture. No spondylolisthesis. Degenerative changes of the posterior elements. Preservation of the normal cervical lordosis. There has been interval anterior cervical disc fusion with anterior plate and screws from the level of C4-C6 with interbody fusion devices.. DISCS: Degenerative changes are noted. Fusion of the intervertebral disc from the level of C4-C6. Decreased disc space at C2-3 NECK SOFT TISSUES: No prevertebral soft tissue widening. LUNG APICES: Poorly visualized on this study RAD/Cerv Spine 2 or 3 Views IMPRESSION: Degenerative and postsurgical changes involving the cervical spine but no evidence of an acute fracture If symptoms persist consider CT examination for further evaluation at 2355 Reported and signed by: Zoë Cano DO Electronically Signed: Zoë Cano DO at 23:54 EDT Tel , Service support ,
== END ==
PROVIDERS: PCP Nurse Practitioner Primary Care; Referring Provider Anesthesiology Pain Medicine; Visit Provider Anesthesiology Pain Medicine
DX: M54.2 Cervicalgia (principal)
CPT/HCPCS: 72040

== ENCOUNTER → 2019-11-20 14:29 | Outpatient (CLI) | payer MEDICARE, OTHER, SELFPAY ==
--- NOTE | 2019-11-20 14:43 | RAD_ITS ---
STUDY: X-RAY - THORACIC SPINE REASON FOR EXAM: Female, 74 years old. BACK PAIN TECHNIQUE: 3 view(s) of the thoracic spine were obtained. COMPARISON: None. FINDINGS: There is an increase in the normal thoracic kyphosis. Moderate degree of dextroscoliosis. There is multilevel endplate spondylosis of the thoracic vertebrae. There is multilevel disc space narrowing of the thoracic spine. Electrodes from a TENS unit are seen with its distal tips at the T6-T7 level. Prior left shoulder replacement. RAD/Thoracic Spine 3 Views IMPRESSION: Multilevel disc space narrowing and spondylosis. Increased kyphosis. Dextroscoliosis. Electronically Signed: Zachariah Cano, at 14:31 EDT , Service support ,
== END ==
PROVIDERS: PCP Nurse Practitioner Primary Care; Referring Provider Anesthesiology Pain Medicine; Visit Provider Anesthesiology Pain Medicine
DX: M54.9 Dorsalgia, unspecified (principal); W19.XXXA Unspecified fall, initial encounter
CPT/HCPCS: 72072

== ENCOUNTER 2020-01-24 15:30 | Outpatient (RCR) | payer MEDICARE, OTHER, SELFPAY ==
--- NOTE | 2019-11-20 13:58 | HP.PTEVAL ---
Patient's Visit Information ISMAEL STANLEY is a 74 year old F referred to Physical Therapy by Dr. Magi Galarza MD with a diagnosis of back pain, falls. Date of Evaluation: 11/20/19 Physical Therapist: ERASMO CentenoT, OCS, CSCS - Visit Plan Frequency: 2x /Week Duration: 4-6 Weeks Plan: 2x/week for 4 weeks for pool therapy to wrok on : core strength, posture, LE strength adn general ex with back ROM and HS stretching progress to I pool HP or otherwise and HEP as tolerated. - Subjective Last two months has had R LBP into ribs but not bad but constant and is seeing Michell for this. Was in hospital for heart stents in August. Back hurts from OA and old age. Had YESENIA on R years ago. Dr. Galarza gives injections and it helps somewhat. Has been told she will never walk up straight. LBP is to 3/10 constant. Had a fall due to chasing after dog. One time fell FW when attempting to sit in chair. Uses cane all the time now and has been for last couple months. No falls with cane. No dizzyness. No neuropathy diagnosed maybe starting in L. Sleeping is OK in recliner due to mobility deficits to get up to bed upstairs. Steps into house one and then 3 into kitchen with something to hold on to -rail. No trouble getting in and out of chair. Slightly weak in morning. Lives with . Dresse and showers self. Can cook but not cleaning a lot due to pain. Hobbies:not a lot Spends day sitting watching TV and no exercises. - Pain LBP R Pain Intensity (Out of 10): 3 Pain Intensity Range: 3, 5 - Objective Walks with cane 200 feet into PT with cane hunched over 40 degrees and c/o LBP. Very tired at the end of 200 feet. Trasnfers into adn out of chair I with UE. L/S arom ext max limited, flexion full, R SB and L SB max limited with pain ext adn SB. R rib hump and 25 degrees FW flexion in posture today and flat lordosis. reflexes 2/3 patella and achilles. sensation LE WNL to gross light touch B. Coordination slightly at deficit to reciprocal toe tapping. Strength LE 3+/5 without increased pain. UE strength 3/5. Core strength back 3 and abs 3. - Balance Scores Functional Gait Assessment Score: 19 % Disability: 36.6700 - Goals Goal 1:: LBP intermittent adn 0-1/10 Goal Time Frame: 4-6 Weeks Goal 2:: Patient score 22/30 on FGa to limit fall risk Goal Time Frame: 4-6 Weeks Goal 3:: I approp HEP pool or otherwise to limit future problems. Goal Time Frame: 4-6 Weeks Goal 4:: Oswestry LB score 15 or less. Goal Time Frame: 4-6 Weeks - Rehabilitation Potential Physical Therapy Diagnosis: back pain, sedentarism, falls Rehabilitation Potential: Fair - Anticipated Interventions Patient/Client Instruction: Educate patient on: Condition, Plan of Care For the Purpose of:: To decrease pain, To increase ROM, To improve muscle performance and motor function, To increase tolerance to activity/condition/position Therapeutic Exercise to Include: Strength training, Balance training, Postural training, Flexibilty training, Gait and locomotor training, In an aquatic setting, Passive ROM, Active ROM For the Purpose of:: To decrease pain, To improve muscle performance and motor function, To increase tolerance to activity/condition/position, To improve ability of physical actions for home/community/work/leisure, To improve gait and locomotor functions Thank you for the opportunity to evaluate your patient. For Medicare and Medicare HMO plans, please review the plan of care and approve it. It will need to be FAXED BACK to us at [phone] for Medicare purposes. For Medicare only, by signing this I certify the plan of care. Please let me know if there are questions or concerns regarding this plan of care. Physician Signature: Date:
--- NOTE | 2019-12-24 14:21 | HP.PTREVAL_ITS ---
Dr. Magi Galarza MD, It has been my pleasure to treat ISMAEL HERNANDEZER over the last 9 visits for back pain, falls. Please see the progress note below for an update on the physical therapy plan of care! Subjective: The pool was OK. Frequent rests needed on way into pool area. Doesn't want to continue any pool ex. Needs to get hands fixed and will have OT for that. Has seen some minor improvements. L hip pain persists but needs hip repacement and cannot have it due to heart problems. No falls since started therpay, using cane all the time. Needs to be done with PT right now, cannot continue. Objective/Function: Walks with cane safe adn I on firm flat surface. Slightly better overall adn able to stay up tall longer. 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 Fair prognosis for new POC. Plan Plan: 2x/week for 2 weeks. Please teach postural and LE strength ex in standing and sitting pt can do at home for the winter, also balance. Give pics and list when safe. Goals Goal 1:: LBP intermittent adn 0-1/10 Goal Time Frame: 4-6 Weeks Goal Progress: better Goal 2:: Patient score 22/30 on FGa to limit fall risk Goal Time Frame: 4-6 Weeks Goal Progress: slightly better Goal 3:: I approp HEP pool or otherwise to limit future problems. Goal Time Frame: 4-6 Weeks Goal Progress: not wanted. Goal 4:: Oswestry LB score 15 or less. Goal Time Frame: 4-6 Weeks Goal Progress: Not Progressing Goal 5:: I appropriate HEP for LE adn postural strengthening pt can do I this winter. Goal Time Frame: 4-6 Weeks Goal Progress: NEW GOAL Anticipated Interventions Patient/Client Instruction: Educate patient on: Condition, Plan of Care For the Purpose of:: To decrease pain, To increase ROM, To improve muscle performance and motor function, To increase tolerance to activity/condition/position Therapeutic Exercise to Include: Strength training, Balance training, Postural training, Flexibilty training, Gait and locomotor training, In an aquatic setting, Passive ROM, Active ROM For the Purpose of:: To decrease pain, To improve muscle performance and motor function, To increase tolerance to activity/condition/position, To improve ability of physical actions for home/community/work/leisure, To improve gait and locomotor functions Please do not hesitate to contact me at [phone] by phone or if you have questions or concerns regarding this new plan of care! Sincerely, Jacob Kinney, DPT, OCS, CSCS
--- NOTE | 2020-01-02 10:40 | HP.OTEVAL_ITS ---
Patient's Visit Information ISMAEL STANLEY is a 74 year old F, referred to Occupational Therapy by Dr. Magi Galarza MD, with a diagnosis of left hand strain/pain. Date of Evaluation: 12/26/19 Occupational Therapist: Valarie Rubio, CRISELDAR/Bibiana, CHT - Subjective This 74 year old female was seen for OT eval with dx of left hand strain of unspecified muscle. pt states on Sep.28 she had a fall and attempted to catch self with her left hand. Pt states. pt states she is right handed but her left hand starts to hurt an her LF and RF tingls. pt states this does wake her up at night. pt states stiff and tight feeling. 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 (z- thumb with resistance) - Sensation Thumb: right 2.83 left 2.83 Index: right 2.83 left 2.83 Middle: right 2.83 left 2.83 Ring: right 2.83 left 2.83 Little: right 2.83 left 3.61 - Quick DASH-Disab of Arm,Shoulder& Hand Quick DASH Score: 54.5450 - Goals Goal:: pt will demo a increase in left city assessor strength by 10 # to increase pts ind. with ADLs and IADLs Goal:: pt will report no pain greater than 2/10 with use of left hand with ADLS and IADLs by d/c Goal:: Pt will demonstrate understanding of joint protection and adaptive equipment to decrease joint stress while performing ADL tasks by d/c - Rehabilitation General Assessment: pt demo with pain in left hand with limited function to perform ADLS and IADLs. Pt would benefit from skilled OT services 1- 2x week for 4 weeks to return pt to PLOF. Rehabilitation Potential: Good - Anticipated Interventions A/AAROM/PROM, Strengthening, Triggerpoint Release, Modalities, Orthoses, Joint Protection/Energy Conservation, Ergonomic Education, Fine Motor Coord/Todd - Visit Plan Frequency: 1-2x /Week Duration: 4 Weeks TEXT: Thank you for the opportunity to evaluate your patient. For Medicare and Medicare HMO plans, please review the plan of care and approve it. It will need to be FAXED BACK to us at [phone] for Medicare purposes. Please let me know if there are questions or concerns regarding this plan of care. Physician Signature: Date:
--- NOTE | 2020-01-09 14:23 | HP.PTREVAL ---
Dr. Magi Galarza MD, It has been my pleasure to treat ISMAEL Cole LOSINGER over the last 12 visits for back pain, falls. Please see the progress note below for an update on the physical therapy plan of care! Subjective: Doing OK. Had OT today on hand. LB is OK. Legs hurt L groin and willhave that replaced int he new year. No other pain, back has been good and gets shots when needed. Balance is improving but could be better. Uses cane, walker if needed. No falls lately.It is just easier to sit in chair due to L groin pain. Doing exercises at home daily. Objective/Function: SOB after walking 200 feet adn one flight steps. Walks hunched over slightly but safe on firm flat surface without AD. Steps reciprocal with one rail. Doing better and appropriate for HEP and f/u down the road. Fair prognosis for continued maitnenacne adn improvement. Plan Plan: f/u 4 weeks for balance check, pain check and monitor need for further PT vs home management. Goals Goal 1:: LBP intermittent adn 0-1/10 Goal Time Frame: 4-6 Weeks Goal Progress: Goal Met Goal 2:: Patient score 22/30 on FGa to limit fall risk Goal Time Frame: 4-6 Weeks Goal Progress: Goal Met Goal 3:: I approp HEP pool or otherwise to limit future problems. Goal Time Frame: 4-6 Weeks Goal Progress: not wanted. Goal 4:: Oswestry LB score 15 or less. Goal Time Frame: 4-6 Weeks Goal Progress: Progressing Goal 5:: I appropriate HEP for LE adn postural strengthening pt can do I this winter. Goal Time Frame: 4-6 Weeks Goal Progress: Goal Met Goal 6:: Maintain improvements with current HEP subjectively and FGA. Goal Time Frame: 4-6 Weeks Goal Progress: NEW GOAL Anticipated Interventions Patient/Client Instruction: Educate patient on: Condition, Plan of Care For the Purpose of:: To decrease pain, To increase ROM, To improve muscle performance and motor function, To increase tolerance to activity/condition/position Therapeutic Exercise to Include: Strength training, Balance training, Postural training, Flexibilty training, Gait and locomotor training, In an aquatic setting, Passive ROM, Active ROM For the Purpose of:: To decrease pain, To improve muscle performance and motor function, To increase tolerance to activity/condition/position, To improve ability of physical actions for home/community/work/leisure, To improve gait and locomotor functions Please do not hesitate to contact me at [phone] by phone or if you have questions or concerns regarding this new plan of care! Sincerely, Jacob Kinney, DPT, OCS, CSCS
--- NOTE | 2020-01-24 15:57 | HP.OTDCSUM_ITS ---
It has been my pleasure to treat ISMAEL Cole LOSINGER under orders from Dr. Magi Galarza MD, for the diagnosis of left hand strain/pain for a total of 7 visit(s). Please see the following information for a summary of their discharge status. % Improvement: 75 Objective/Function: left cocoa room operator strength 35# no change with strength from initial. pt demo with left LF ulnar deviation but can adduct LF well- pt has concerns with tingling/nubness in LF and RF. Patient Goals: Use Hand/Wrist/Arm Normally Again, Be More Independent in ADLS Goal:: pt will demo a increase in left cocoa room operator strength by 10 # to increase pts ind. with ADLs and IADLs Goal:: pt will report no pain greater than 2/10 with use of left hand with ADLS and IADLs by d/c Goal:: Pt will demonstrate understanding of joint protection and adaptive equipment to decrease joint stress while performing ADL tasks by d/c Plan: D/C Discharge Comments: Pt was seen for 7 OT visits using ulnar nerve glides, cocoa room operator and pinch strengthening- pt's cocoa room operator strength remained the same at 35#. therapy advised pt to return to for further testing. pt agree If there are questions or concerns regarding this patient's occupational therapy, please fell free to call me at [phone]. Thank you for the referral of this patient. Sincerely, Valarie Rubio, OTR/L, CHT
== END 2020-01-24 19:00 | disposition home or self-care (01) ==
LOC: OT 15:30
PROVIDERS: PCP Nurse Practitioner Primary Care; Referring Provider Anesthesiology Pain Medicine; Visit Provider Anesthesiology Pain Medicine
DX: S66.912D Strain of unspecified muscle, fascia and tendon at wrist and hand level, left hand, subsequent encounter (principal); M54.9 Dorsalgia, unspecified; R29.6 Repeated falls
CPT/HCPCS: 97035; 97110; 97113; 97162; 97164; 97166; 97530

== ENCOUNTER 2020-03-11 06:19 | Day surgery (SDC) | payer MEDICARE, OTHER, SELFPAY ==
[2020-01-31 14:42] VITALS: BMI 29.5
--- NOTE | 2020-03-10 17:12 | PCM.HP.BLA ---
History and Physical Date of Admission: 03/11/20 HISTORY OF PRESENT ILLNESS 74 year old woman presents for evaluation for TBSE. She has concerns about lesions on her right medial leg, anterior neck, left proximal ulnar forearm, and right lateral arm that have increased in size over the last several months. The lesions right medial leg and anterior neck have developed a cutaneous horn component. The lesions have developed irregular borders. She denies trauma. She denies fever. She denies any drainage from these lesions. She presents at this time for further evaluation and treatment. PAST MEDICAL HISTORY Neoplasm of skin of forearm Neoplasm of skin of upper arm Neoplasm of skin of neck Neoplasm of skin of lower leg Anemia Arthritis Back pain Difficulty balancing when standing Fatigue GERD (gastroesophageal reflux disease) Heart valve problem History of blood transfusion Kidney disease Limb weakness Osteopenia SOB (shortness of breath) HTN (hypertension) PAST SURGICAL HISTORY back surgery cardiac cath cardiac stent hip replacement knee surgery neck surgery tonsillectomy tooth extraction tubal ligation ALLERGIES aspirin codeine morphine NSAIDS ramipril [From Altace] MEDICATIONS Allopurinol [Zyloprim] Atenolol [Tenormin (beta steve)] Gabapentin [Neurontin] Leflunomide [Arava] Omeprazole [Prilosec] buPROPion XL [Wellbutrin Xl] Zolpidem Tartrate [Ambien] Folic Acid Iron Polysaccharide Complex [Ferrex 150] Losartan Potassium [Cozaar] Senna/Docusate Sodium [Senokot-S] Amlodipine [Norvasc] Atorvastatin Calcium Carvedilol Chlorthalidone Ergocalciferol (Vitamin D2) [Vitamin D2] Hydrocodone/Acetaminophen [[place] 5-325 Tablet] Patiromer Calcium Sorbitex [Veltassa] aspirin clopidogrel nitroglycerin FAMILY HISTORY Other - Anemia, Arthritis, Depression, History of blood transfusion, Hypertension, Kidney disease SOCIAL HISTORY Smoking Status: Never smoker alcohol intake: never REVIEW OF SYSTEMS General - Denies fever and weight loss. Has fatigue. Eyes - Has cataracts. Denies glaucoma. ENT - Denies nasal congestion and sore throat. Endocrine - Denies excessive thirst and urination. Skin - Denies suspicious lesions and skin cancer. Musculoskeletal - Denies joint pain, joint stiffness, weakness of muscles and joints, and arthritis. Has back pain. Neuro - Denies headaches. Has some lightheadedness. Cardiovascular - Denies chest pain and shortness of breath with exertion. Has fatigue and lightheadedness. Psych - Denies anxiety. Had depression. Respiratory - Denies chronic cough. Has shortness of breath. Gastrointestinal - Denies nausea, vomiting, diarrhea, and constipation. Hematologic - Denies abnormal bruising and bleeding. Has anemia. Genitourinary - Denies hematuria and urinary frequency. History of kidney failure in the past. PHYSICAL EXAMINATION General - Alert and Oriented. HEENT - PERRL. EOMI. Throat is clear. No suspicious lesions noted. Neck - Supple and nontender. No cervical adenopathy. On the anterior neck is a 4 mm cutaneous horn lesion. Has irregular borders. Raised in configuration. No ulceration. Lesion is nontender. No other suspicious lesions noted. Lungs - Clear to auscultation. Heart - Regular rate and rhythm. Abdomen - Soft and nondistended. Extremities - FROM. No axillary adenopathy. Radial pulses are palpable. No inguinal adenopathy. Dorsalis pedis pulses are palpable. On the right medial leg is a 9 mm cutaneous horn lesion. Has irregular borders. Raised in configuration. No ulceration. Lesion is nontender. On the left proximal ulnar forearm is a 5 mm lesion. Has irregular borders. Slightly raised in configuration. No ulceration. Lesion is nontender. Clinically looks actinic. On the right lateral arm is a 5 mm lesion. Has irregular borders. Slightly raised in configuration. No ulceration. Lesion is nontender. Clinically looks actinic. Neuro - CN II-XII grossly intact. Psych - Normal mood and affect. ASSESSMENT 1. 9 mm cutaneous horn lesion right medial leg. 2. 4 mm cutaneous horn lesion anterior neck. 3. 5 mm lesion left proximal ulnar forearm, clinically looks actinic. 4. 5 mm lesion right lateral arm, clinically looks actinic. PLAN Recommend excision of these lesions and send them to Pathology for analysis to rule out carcinoma. For the cutaneous horn lesions (right medial leg and anterior neck), full thickness excisions will be done. Reconstruction may be with a skin flap. If carcinoma is present, then further excision will be done with skin graft or skin flap reconstruction. For the lesions on the left proximal ulnar forearm and right lateral arm, a shave excision will be done. If actinic damage is present or carcinoma then full thickness excision will be done with skin flap reconstruction. Surgery will be done on an outpatient basis under local anesthesia and IV sedation. Patient was informed of the risks and complications of the procedure including alternatives to surgery. These were discussed with the patient personally. Patient voices understanding and wishes to proceed. Some of the risks and complications were included in a form from the [employer]. We discussed the current risks associated with COVID-19. While it is understood that there is a community spread of COVID-19, the risk of jacy COVID-19 while at [facility] ([facility]) is very low; however, the risk cannot be completely mitigated because of the community spread of the disease. We discussed in detail the risk of exposure to and/or potential harm posed by the COVID-19 virus with having a surgery/procedure at this time versus the risk of delaying the surgery/procedure. It is not possible to know either the risk of delaying the surgery or procedure or chance of getting an infection with perfect accuracy, but a joint decision was made to proceed at this time with the scheduled surgery/procedure as indicated on the consent form. Patient was notified that we will need to comply with any screening or testing [facility] wishes to perform or that surgery may be delayed for any positive results. Discussed with the patient that I was tested for COVID-19 on 08/23/19 which was negative and on 09/06/19 which was negative and on 09/20/19 which was negative and on 10/04/19 which was negative and on 10/18/19 which was negative and on 11/08/19 which was negative and on 11/29/19 which was negative and on 01/03/20 which was negative and on 01/24/20 which was negative and on 02/12/20 which was negative. My testing regimen at this time is to be COVID-19 tested every 2 weeks or so. I received the COVID-19 vaccine (Moderna) on 02/20/20. Procedure Criteria Procedure Type: Elective COVID Risk Discussion: The surgeon/proceduralist and patient have discussed in detail the risk of exposure to and/or potential harm posed by the COVID-19 virus with having a surgery/procedure at this time versus the risk of delaying the surgery/procedure. It is not possible to know either the risk of delaying the surgery or procedure or chance of getting an infection with perfect accuracy, but a joint decision was made between the patient and the surgeon/proceduralist to proceed at this time with the scheduled surgery/procedure as indicated on the consent form.
[2020-03-11] VITALS (10 sets, daily range): BP systolic 100–149; BP diastolic 73–89; PULSE 65–78; RESP 16; TEMP 36.1–36.5; O2SAT 93–96; BMI 28.5
--- NOTE | 2020-03-11 | LES_PTH ---
PATIENT: ISMAEL STANLEY [place] [facility] [place][id number] AGE/SX: 74/F ROOM: RE03/11/[address]: Dr. 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 Tissues: A - Skin of forearm, NOS B - Skin of neck, NOS C - Skin of leg, NOS D - Skin of arm E - Skin of neck, NOS F - Skin of forearm, NOS G - Skin of leg, NOS H - Skin of arm Procedures: Frozen Section (charge) Surgery Specimen Level IV HEADER OPERATION: Excision, cutaneous horn lesion, right medial leg with frozen section PRE-OP DIAGNOSIS: 9 mm subcutaneous horn lesion right medial leg; 4 mm subcutaneous horn lesion anterior neck; 5 mm lesion left proximal ulnar forearm; 5 mm lesion right lateral arm TISSUE SUBMITTED: A - 5 mm lesion left proximal ulnar forearm, FS, B - 4 mm cutaneous horn lesion anterior neck, suture at 12 o'clock, FS, C - 9 mm cutaneous horn lesion right medial leg, suture at 12 o'clock, FS, D - 5 mm lesion right lateral arm, FS, E - Actinic keratosis anterior neck, suture at 12 o'clock, F - Actinic keratosis left proximal ulnar forearm, suture at 12 o'clock, G - Actinic keratosis right medial leg, suture at 12 o'clock, H - Actinic keratosis right lateral arm, suture at 12 o'clock FROZEN SECTION DIAGNOSIS A. Left proximal ulnar forearm lesion, shave biopsy: Actinic keratosis. Negative for carcinoma. B. Anterior neck lesion, shave biopsy: Actinic keratosis. Negative for carcinoma. C. Right medial leg, cutaneous horn, biopsy: Verrucous keratosis, hyperkeratosis, minimal actinic keratosis. Negative for carcinoma. D. Right lateral arm, shave biopsy: Verrucous keratosis, minimal actinic keratosis. SJ:bean 03/11/2020 MICROSCOPIC DIAGNOSIS A. Skin lesion, left proximal ulnar forearm, shave biopsy: Actinic keratosis. Solar elastosis. Hyperkeratosis. B. Skin lesion, anterior neck, shave biopsy: Actinic keratosis. C. Skin lesion, right medial leg, biopsy: Verrucous keratosis. Hyperkeratosis and cutaneous horn. Actinic change. D. Skin lesion, right lateral arm, shave biopsy: Actinic keratosis and hyperkeratosis. See comment. E. Skin lesion, anterior neck, biopsy: . Mild solar elastosis F. Skin lesion, left proximal ulnar forearm: Capillary hemangioma. Solar elastosis. Epidermal inclusion cyst. Recent cutaneous ulceration G. Skin lesion, right medial leg, biopsy: Focal actinic change. H. Skin lesion, right lateral arm, biopsy: Recent ulcer. Solar elastosis and actinic change. AM:bean 03/12/2020 COMMENT D. Focal features of verrucous keratosis are present. Case has been reviewed in consultation with Dr. Childress who concurs with the above diagnosis. IDC:SJ MICROSCOPIC DESCRIPTION Slides are reviewed. GROSS DESCRIPTION A - Received fresh for frozen section diagnosis labeled with the patient's name is a specimen designated lesion left proximal ulnar forearm. The specimen consists of a shave biopsy of bain-white skin measuring 0.8 x 0.8 x 0.1 cm. The specimen is inked, bisected and submitted entirely in one cassette for frozen section diagnosis. B - Received fresh for frozen section diagnosis labeled with the patient's name is a specimen designated anterior neck. The specimen consists of a piece of bain-white skin measuring 0.4 x 0.4 x 0.1 cm. The specimen is oriented by a suture at 12 o'clock. The 12 o'clock half is inked black and 6 o'clock half is inked blue. The entire specimen is submitted for frozen section diagnosis in one cassette. C - Received fresh for frozen section diagnosis labeled with the patient's name is a specimen designated 9 mm cutaneous horn lesion. The specimen consists of a piece of bain-white skin measuring 1.2 x 1 x 0.3 cm. The cutaneous horn measures 1.5 x 0.5 x 0.5 cm. The cutaneous horn is red, indurated and resected. The specimen is inked as follows: 12 o'clock - black and 6 o'clock half - blue. The skin piece is serially sectioned and submitted for frozen section in cassette 1. The cutaneous horn is serially sectioned and submitted in cassette 2. D - Received fresh for frozen section diagnosis labeled with the patient's name is a specimen designated right lateral arm lesion. The specimen consists of a shave biopsy of bain-white skin measuring 0.8 x 0.5 x 0.1 cm. The specimen is inked, bisected and submitted entirely for frozen section diagnosis in one cassette. E - Received in fixative is one container labeled with the patient's name and designated actinic keratosis anterior neck, suture at 12 o'clock. The specimen consists of a piece of bain-white skin measuring 1.5 x 0.5 x 0.2 cm. The specimen is oriented by a suture at 12 o'clock position. The 12 o'clock margin is inked black and 6 o'clock margin is inked blue. A focal area of ulceration is noted consistent with site of specimen B. The entire specimen is submitted in one cassette. It will be serially sectioned at the time of embedding. F - Received in fixative is one container labeled with the patient's name and designated actinic keratosis left forearm, suture at 12 o'clock. The specimen consists of a piece of bain-white skin measuring 2.5 x 0.7 cm and up to 0.4 cm in thickness. The specimen is oriented by a suture at 12 o'clock tip. The specimen is inked as follows: 12 o'clock tip - yellow, 6 o'clock tip - green, 3 o'clock margin - black and 9 o'clock margin - blue. The skin surface shows a focal area of ulceration consistent with site of specimen A measuring 0.8 cm in greatest dimension. The specimen is serially sectioned and submitted entirely in one cassette. G - Received in fixative is one container labeled with the patient's name and designated actinic keratosis right medial leg, suture at 12 o'clock. The specimen consists of a ring-shaped piece of skin measuring 1.5 x 0.7 x 0.1 cm. The specimen is oriented by a suture at 12 o'clock position. The specimen is inked as follows: 12 o'clock tip - black, 6 o'clock tip - blue, 3 o'clock margin - green and 9 o'clock margin - yellow. The ring-shaped defect measures up to 0.7 cm in greatest dimension. The specimen is bisected and submitted entirely in one cassette. H - Received in fixative is one container labeled with the patient's name and designated actinic keratosis right lateral arm, suture at 12 o'clock. The specimen consists of a piece of bain-white skin measuring 2.5 x 0.5 cm and up to 0.3 cm in thickness. The specimen is oriented by a suture at 12 o'clock tip. The specimen is inked as follows: 12 o'clock tip - yellow, 6 o'clock tip - green, 3 o'clock margin - black and 9 o'clock margin - blue. A focal area of ulceration is noted consistent with site of specimen D measuring 0.5 cm in greatest dimension. The specimen is serially sectioned and submitted entirely in one cassette. / SJ:bean 03/11/20 TC:5 CPT: 46760 x8, [id number] x4
[2020-03-11] MEDS: Lactated Ringers 1,000 ML 100 ML IV (07:14)
[2020-03-11] MEDS: Cefazolin 2 GM in 0.9% Normal Saline 100 ML IV (08:42)
[2020-03-11] MEDS: Mupirocin Ointment 22gm Tube 1 APPLIC (10:05)
[2020-03-11] MEDS: Lidocaine 1%/Epi 1:200 (30ml) 30 ML AMPUL (10:28)
--- NOTE | 2020-03-11 10:45 | PCM.OPRPT ---
Report of Operation Date of Procedure: 03/11/20 Pre-Operative Diagnosis: 1. 9 mm cutaneous horn lesion right medial leg. 2. 4 mm cutaneous horn lesion anterior neck. 3. 5 mm lesion left proximal ulnar forearm, clinically looks actinic. 4. 5 mm lesion right lateral arm, clinically looks actinic. Post-Operative Diagnosis: 1. 9 mm actinic keratosis right medial leg. 2. 4 mm actinic keratosis anterior neck. 3. 5 mm actinic keratosis left proximal ulnar forearm. 4. 5 mm actinic keratosis right lateral arm. Surgery/Procedure Performed:: 1. Excision 9 mm actinic keratosis right medial leg with rhomboid transposition skin flap reconstruction (4.5 cm2). 2. Excision 4 mm actinic keratosis anterior neck with 2 cm layered closure. 3. Excision 5 mm actinic keratosis left proximal ulnar forearm with 2.5 cm layered closure. 4. Excision 5 mm actinic keratosis right lateral arm with 2.5 cm layered closure. Description of Surgical Findings:: 74 year old woman presents for evaluation for TBSE. She has concerns about lesions on her right medial leg, anterior neck, left proximal ulnar forearm, and right lateral arm that have increased in size over the last several months. The lesions right medial leg and anterior neck have developed a cutaneous horn component. The lesions have developed irregular borders. She denies trauma. She denies fever. She denies any drainage from these lesions. Patient was informed of the risks and complications of the procedure including alternatives to surgery. These were discussed with the patient personally. Patient voices understanding and wishes to proceed. Some of the risks and complications were included in a form from the [employer]. Frozen section right medial leg - actinic keratosis and no carcinoma seen. Frozen section anterior neck - actinic keratosis and no carcinoma seen. Frozen section left proximal ulnar forearm - actinic keratosis and no carcinoma seen. Frozen section right lateral arm - actinic keratosis and no carcinoma seen. 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 Specimen's removed: 1. Cutaneous horn lesion right medial leg to Pathology as a frozen section. 2. Cutaneous horn lesion anterior neck to Pathology as a frozen section. 3. Lesion left proximal ulnar forearm to Pathology as a frozen section. 4. Lesion right lateral arm as a frozen section. 5. Actinic keratosis right medial leg to Pathology. 6. Actinic keratosis anterior neck to Pathology. 7. Actinic keratosis left proximal ulnar forearm to Pathology. 8. Actinic keratosis right lateral arm to Pathology. Drains: None. Estimated Blood Loss (mL): 20 ml. Description of Procedure: Patient was taken to OR in supine position and was given IV sedation. The right leg, anterior neck, left forearm, and right arm areas were prepped and draped in the usual fashion. SCD's were placed for DVT prophylaxis. Perioperative antibiotics were given intravenously. For the procedure, I wore an N95 mask and wore proper eyewear protection. The lesions right medial leg, anterior neck, left proximal ulnar forearm, and right lateral arm were infiltrated with xylocaine and epinephrine. After waiting 5 minutes for the anesthetic to take effect, I excised the cutaneous horn lesions right medial leg and anterior neck in a circular fashion down into the subcutaneous tissue. A suture was placed at 12 oclock position for pathology orientation. The lesions were sent to Pathology as a frozen section for analysis to rule out carcinoma. Frozen section showed both lesions were actinic keratoses and no carcinoma seen. I then excised the lesions left proximal ulnar forearm, and right lateral arm in an intradermal fashion. The lesions were sent to Pathology as a frozen section for analysis to rule out carcinoma. Frozen section showed both lesion were actinic keratoses and no carcinoma seen. Further excision of these actinic keratoses will be done. For the right medial leg, I designed a rhomboid flap adjacent to the defect. I turned the circular defect into a rhomboid defect. The extra margin that I excised made it a 2 mm margin in all directions thus making it a 1.3 cm excision. A suture was marked at 12 oclock position. The extra tissue was sent to Pathology for analysis to rule out carcinoma. The rhomboid flap was incised and elevated on a subcutaneous pedicle and easily transposed into the defect with minimal tension and minimal distortion. Hemostasis was obtained with electrocautery. The flap was closed into the wound in a layered closure fashion with 4-0 Monocryl interrupted sutures for the deep dermis and subcutaneous tissue. The skin was approximated with 4-0 Prolene simple interrupted sutures. The size of the defect and the size of the flap needed to close the defect was 3.38 cm2. For the actinic keratosis anterior neck, left proximal ulnar forearm, and right lateral arm, I excised the remaining defects in an oblique elliptical fashion down into the subcutaneous tissue. A suture was marked at 12 oclock position. The three lesions additional tissue were sent to Pathology for analysis to rule out carcinoma. The extra margin that I excised for each lesion was a 2 mm margin in all directions thus making it an 8 mm excision for the anterior neck lesion, 9 mm excision for the left proximal ulnar forearm lesion, and 9 mm excision for the right lateral arm lesion. The three lesions were then closed in a layered fashion with 4-0 Monocryl interrupted sutures for the deep dermis and subcutaneous tissue. The skin was approximated with 4-0 Prolene simple interrupted sutures. The length of the layered closure for the anterior neck was 2 cm, for the left proximal ulnar forearm was 2.5 cm, and for the right lateral arm was 2.5 cm. Antibiotic ointment was applied to all the suture lines followed by Op-site dressings and for the right medial leg suture line, gauze and a compression amber wrap. Patient tolerated the procedure well and was sent to PACU in satisfactory condition. Patient will be sent home on antibiotics and pain medication. She will keep her head elevated and her right leg elevated when sitting. Patient will followup in a week for a wound check and for discussion of the pathology report and for removal of the sutures. The right medial leg sutures may be removed in two weeks. Grafts/Implants Used: None. - Complications None. - Admit VTE Documentation VTE Present on Admission: No VTE Mechan Device Prophylaxis: SCD's VTE Pharm Prophylaxis ordered?: No Surgery Charges CPT - 46072 ICD-10 - L57.0, D49.2, 03125 L57.0, D49.2 76192 L57.0, D49.2 61189 L57.0, D49.2 43996 L57.0, D49.2 83027 L57.0, D49.2
--- NOTE | 2020-03-11 11:00 | PCM.DC ---
You will use the following diet at home:: No restrictions Discharge Activity: May not drive while taking narcotic pain medications., May Shower - in two days., - - keep head elevated. no heavy lifting. elevate arms. elevate right leg when sitting. May shower in (days): 2 May resume sexual activity in: No Restrictions Weight Bearing Status: Weight bearing as tolerated Lifting Restrictions: 20 lbs. Keep extremity elevated above heart level: Right Leg, Arms Call your doctor if your incision/area has: Continuous Slow Oozing, Sudden Increased Bleeding, Increased Pain/ Swelling, Increased Redness, Foul Smelling Discharge, Swelling at the incision site Call your doctor if you observe: Fever of 101 or Higher, Coldness, Increased Pain, Shortness of breath, Chest pain, Calf discomfort, Uncontrolled pain Suture Line Care: - - apply antibiotic ointment to suture line daily. Change Dressing in (Days):: 2 - after showering, reapply the amber wrap right leg. Cleanse incision/area with: - - may get incisions wet in the shower in two days. Additional Instructions: May resume Plavix tomorrow 03/12/20. Allergies/Adverse Reactions: Allergies aspirin Adverse Reaction (Verified 03/11/20 06:43) not allowed to take aspirin codeine Adverse Reaction (Verified 03/11/20 06:43) Nausea morphine Adverse Reaction (Verified 03/11/20 06:43) Nausea NSAIDS (Non-Steroidal Anti-Inflamma Adverse Reaction (Verified 03/11/20 06:43) not supposed to take ramipril [From Altace] Adverse Reaction (Verified 03/11/20 06:43) COUGH Medications to take at Discharge Allopurinol [Zyloprim] 200 mg PO QHS 11/06/15 Atenolol [Tenormin (beta steve)] 50 mg PO DAILY 11/06/15 Gabapentin [Neurontin] 100 mg PO BID 11/06/15 Leflunomide [Arava] 20 mg PO DAILY 11/06/15 Omeprazole [Prilosec] 40 mg PO QHS 11/06/15 buPROPion XL [Wellbutrin Xl] 300 mg PO QHS 11/06/15 Zolpidem Tartrate [Ambien] 5 mg PO QHS PRN 03/23/16 Folic Acid 400 mcg PO DAILY@0800 05/17/16 Iron Polysaccharide Complex [Ferrex 150] 150 mg PO DAILYCM 11/15/17 Losartan Potassium [Cozaar] 100 mg PO QHS 11/15/17 Amlodipine [Norvasc] 5 mg PO DAILY 05/03/19 Atorvastatin Calcium 40 mg PO DAILY 05/03/19 Carvedilol 25 mg PO BID 05/03/19 Chlorthalidone 25 mg PO DAILY 05/03/19 nitroglycerin 0.4 mg sublingual tablet 0.4 mg SUBLINGUAL Q5M PRN 01/31/20 Cefadroxil [Duricef] 500 mg PO BID #8 cap 03/11/20 Clopidogrel Bisulfate [Clopidogrel] 75 mg PO DAILY #0 03/11/20 Lactobacillus Acidophilus/Fos [Acidophilus Probiotic Tablet] 1 ea PO BID #14 tab 03/11/20 Oxycodone HCl/Acetaminophen [Percocet 5/325] 1 tablet PO Q6H PRN PRN 5 Days #20 tablet 03/11/20 The following prescriptions were given: Lactobacillus Acidophilus/Fos [Acidophilus Probiotic Tablet] 1 ea PO BID #14 tab Transmission Status: Pending to [id number] Cefadroxil [Duricef] 500 mg PO BID #8 cap Transmission Status: Pending to [facility] 181 Oxycodone HCl/Acetaminophen [Percocet 5/325] 1 tablet PO Q6H PRN PRN 5 Days #20 tablet PRN Reason: Pain Score 6-10 Transmission Status: Sent to [id number] Primary Care Physician: Evangelina Reddy MANUFACTURING BUSINESS ANALYST, MANUFACTURING BUSINESS ANALYST-C [Primary Care Provider] - Test Results: Test results from this visit will be discussed in further detail at your follow-up appointment, if applicable. Please Follow Up With: Alvin Izquierdo MD When: one week. call [phone] for appt. Proposed Discharge Date: 03/11/20
== END 2020-03-11 13:08 | disposition home or self-care (01) ==
LOC: SDC 06:21 → AC 06:22
PROVIDERS: PCP Nurse Practitioner Primary Care; Referring Provider Surgery; Visit Provider Surgery
PROC: (CPT 11401; principal; 2020-03-11 08:10)
DX: L57.0 Actinic keratosis (principal); L72.0 Epidermal cyst; L85.8 Other specified epidermal thickening; L57.8 Other skin changes due to chronic exposure to nonionizing radiation; D18.01 Hemangioma of skin and subcutaneous tissue; I25.10 Atherosclerotic heart disease of native coronary artery without angina pectoris; I12.9 Hypertensive chronic kidney disease with stage 1 through stage 4 chronic kidney disease, or unspecified chronic kidney disease; N18.4 Chronic kidney disease, stage 4 (severe); D63.1 Anemia in chronic kidney disease; E78.00 Pure hypercholesterolemia, unspecified; K21.9 Gastro-esophageal reflux disease without esophagitis; M19.90 Unspecified osteoarthritis, unspecified site; Z95.5 Presence of coronary angioplasty implant and graft; Z79.82 Long term (current) use of aspirin; Z79.899 Other long term (current) drug therapy; Z20.822 Contact with and (suspected) exposure to COVID-19; S12.120A Other displaced dens fracture, initial encounter for closed fracture; S01.01XA Laceration without foreign body of scalp, initial encounter; W01.198A Fall on same level from slipping, tripping and stumbling with subsequent striking against other object, initial encounter; Y93.01 Activity, walking, marching and hiking; Y92.9 Unspecified place or not applicable; Y99.9 Unspecified external cause status
CPT/HCPCS: 00300; 11401 ×2; 11421; 12032; 12041; 14020; 70450; 72125; 87426; 88305; 88331; 90715; 99285; J7120; A4216

== ENCOUNTER 2020-03-11 14:14 | Emergency (ER) | payer MEDICARE, OTHER, SELFPAY ==
[2020-03-11 07:06] VITALS: BMI 28.5
[2020-03-11 14:15] VITALS: BP 167/99; PULSE 20; TEMP 36.4; BMI 28.5
--- NOTE | 2020-03-11 14:38 | CT_ITS ---
STUDY: CT CERVICAL SPINE WITHOUT CONTRAST REASON FOR EXAM: Female, 74 years old. HIT HEAD ON SIDE OF DOOR, NECK DISCOMFORT, LAC TO SIDE OF HEAD, NO LOC, PREV CERVICAL FUSION, HTN, RA, OA, CKD, HEART CATH WITH STENTS PLACED RADIATION DOSAGE (If Supplied By Facility): CTDIvol = ( 26.26 ) mGy, DLP = ( 542.44 ) mGycm TECHNIQUE: High resolution transaxial imaging was performed without contrast material. Sagittal and coronal images were reconstructed. Individualized dose optimization techniques were used for this CT. COMPARISON: None FINDINGS: Normal craniovertebral junction. There are degenerative changes of the anterior atlantoaxial articulation. Nondisplaced fracture at the base of the dens. Normal cervical lordosis. Facet joint osteoarthritis and hypertrophy. C2-3: Facet joint osteoarthritis and hypertrophy worse on the right side. C3-4: Normal endplates. Normal disc height and morphology. Normal central canal and intervertebral neuroforamina. C4-5: The patient is status post anterior fusion at the C4-C5 level with prosthetic disc placement. C5-6: Anterior fusion at the C5-C6 level with prosthetic disc placement. C6-7: Moderate degree of disc space narrowing. Minimal anterior listhesis of C6 on C7. CT/Spine Cervical without Contras IMPRESSION: Nondisplaced fracture at the base of the dens. The referring physician has been notified of the findings. Electronically Signed: Zachariah Cano MD at 15:49 EST , Service support ,
--- NOTE | 2020-03-11 14:38 | CT_ITS ---
STUDY: CT BRAIN WITHOUT CONTRAST REASON FOR EXAM: Female, 74 years old. HIT HEAD ON SIDE OF DOOR, NECK DISCOMFORT, LAC TO SIDE OF HEAD, NO LOC, PREV CERVICAL FUSION, HTN, RA, OA, CKD, HEART CATH WITH STENTS PLACED RADIATION DOSAGE (If Supplied By Facility): CTDIvol = ( 44.99 ) mGy, DLP = ( 812.98 ) mGycm TECHNIQUE: Transaxial CT imaging of the brain was performed without administration of intravenous contrast material. Individualized dose optimization techniques were used for this CT. COMPARISON: Comparison is made with prior examination dated 05/27/2012. FINDINGS: Normal soft tissue structures. There is hyperostosis frontalis internus. There is mild cerebral atrophy with widening of the extra-axial spaces and ventricular dilatation. There are areas of decreased attenuation within the white matter tracts of the supratentorial brain, consistent with microvascular disease changes. Normal basal ganglia and thalami. Normal brainstem. Normal cerebellum. There is no intracranial hemorrhage. There are no findings of an acute ischemic infarction. Atherosclerotic plaque formation of the cavernous portions of the internal carotid arteries bilaterally. Normal visualized paranasal sinuses. CT/Brain/Head without Contrast IMPRESSION: Chronic involutional changes of the brain. Electronically Signed: Zachariah Cano MD at 15:43 EST , Service support ,
--- NOTE | 2020-03-11 14:41 | ED.DCSUM_ITS ---
- ER Visit Summary Date of Service: 03/11/20 Chief Complaint: [Fall with head injury] History of Present Illness: The patient is a 74 F [presents to the emergency department after sustaining a fall today. Patient states that she was coming through door when she tripped and fell and hit her head on the side of the hinge of the door. Patient denies loss of consciousness. She describes some discomfort in her neck. Denies numbness or tingling in extremities. Patient states that she was at the hospital earlier today and had some lesions removed from her right leg and left elbow. Patient does complain of a headache. She denies visual changes. There is no loss of consciousness. She has been ambulatory since. Patient has history of hypertension, chronic kidney disease and obstructive sleep apnea, and osteoarthritis.] Physical Examination: HEENT-PERRLA, EOMI. Cranial nerves II through XII grossly intact. TMs clear. Mucous membranes moist. No adenopathy. Patient has a 2 cm laceration over the left parietal scalp. No bony step-offs or depressions noted. No hemotympanum. Patient has diffuse C-spine tenderness on palpation. She has good range of motion. Cardiovascular-regular rate and rhythm without murmur or ectopy Lungs-clear to auscultation, chest wall stable without crepitus or subcu emphysema Abdomen-normoactive bowel sounds, soft, nontender, no rebound or rigidity, no peritoneal signs. Extremities-intact ?4, normal range of motion, normal pulses. Left knee-patient has a small hematoma to the lateral aspect of the left lower knee with superficial skin abrasion noted. No real bony tenderness on exam. Has normal range of motion. Test Results: [CT brain showed chronic involutional changes. CT of the C-spine showed a minimally displaced fracture of the base of the dens/C2.] Emergency Department Course and Treatment: [Patient had a c-collar placed. Patient case was discussed with [facility] emergency department physician Dr. Weaver who accepted transfer of patient after discussing the case with their neurosurgeon.] At this point they do not feel any suture repair is indicated given the patient has a cervical spine fracture and wanted to minimize movement of the head and neck. I feel the laceration will heal via secondary intention. Treatment Plan: Transfer to [facility]] Disposition: [Transfer] Impression: [Mechanical fall C2 fracture Closed head injury 2 cm scalp laceration] This note was generated with [employer] dictation software. It may contain incorrect words, spelling, and punctuation that were not noted in review of the chart prior to signing ED Disposition - Plan for ED Patient: Referrals: Evangelina Reddy SUBSTATION WIREMAN, SUBSTATION WIREMAN-C [Primary Care Provider] -
[2020-03-11] MEDS: Diphth,Pertuss(Acell),Tet Vac 0.5 ML Vial IM (15:15)
[2020-03-11] MEDS: Lidocaine 1% (20 ml mdv) 20 ML Vial 4 ML INFILT (15:16)
[2020-03-11 16:17] VITALS: BP 150/72; RESP 18; O2SAT 97
[2020-03-11 16:35] VITALS: BP 146/61; PULSE 83; RESP 18; TEMP 36.6
== END 2020-03-11 18:43 | disposition short-term general hospital (02) ==
LOC: ED 14:44
PROVIDERS: Emergency Provider Emergency Medicine; PCP Nurse Practitioner Primary Care
DX: S12.120A Other displaced dens fracture, initial encounter for closed fracture (principal); S01.01XA Laceration without foreign body of scalp, initial encounter; W01.198A Fall on same level from slipping, tripping and stumbling with subsequent striking against other object, initial encounter; Y93.01 Activity, walking, marching and hiking; Y92.9 Unspecified place or not applicable; Y99.9 Unspecified external cause status; I12.9 Hypertensive chronic kidney disease with stage 1 through stage 4 chronic kidney disease, or unspecified chronic kidney disease; N18.9 Chronic kidney disease, unspecified; M19.90 Unspecified osteoarthritis, unspecified site; Z79.899 Other long term (current) drug therapy
CPT/HCPCS: 70450; 72125; 90715; A4216

== ENCOUNTER 2020-05-01 08:02 | Outpatient (RCR) | payer MEDICARE, OTHER, SELFPAY ==
[2020-05-01] MEDS: COVID-19 VACC, MRNA(PFIZER)/PF 30 MCG/0.3 ML SYRINGE IM (14:50)
[2020-05-22] MEDS: COVID-19 VACC, MRNA(PFIZER)/PF 30 MCG/0.3 ML SYRINGE IM (15:18)
== END 2020-07-29 23:59 ==
LOC: IMMUN 08:02
PROVIDERS: PCP Nurse Practitioner Primary Care; Referring Provider Family Medicine; Visit Provider Family Medicine
DX: Z23 Encounter for immunization (principal)
CPT/HCPCS: 0001A; 0002A; 91300

== ENCOUNTER → 2020-05-20 16:02 | Outpatient (CLI) | payer MEDICARE, OTHER, SELFPAY ==
[2020-05-20 17:32] LABS: Absolute Lymphocyte Count 2.82 X10^3/uL (0.83-4.51); Absolute Neutrophil Count 5.6 X10^3/uL (2.0-7.7); Eosinophil# 0.85 X10^3/uL; Eosinophils% 8.3 % (0-5); Hematocrit 31.4 % (37-47); Hemoglobin 9.5 g/dL (12.0-15.0); Lymphocyte # 2.82 X10^3/ul (4.0); Lymphocyte % 27.6 % (19-41); Mean Corp Hgb Conc 30.3 g/dL (32-36); Mean Corpuscular Hgb 28.7 pg (27.0-32.0); Mean Corpuscular Volume 94.9 fL (81-99); Mean Platelet Vol. 10.3 fl (6.2-12.0); Monocyte# 0.75 X10^3/uL; Monocyte% 7.3 % (0-10); NRBC Flagged by Analyzer 0 % (0-5); Neutrophil # 5.62 X10^3/uL (2.7-7.7); Neutrophil % 55.1 % (47-70); Platelet Count 265 K/mm3 (150-450); RBC Distribution Width CV 15.9 % (11.6-14.6); RBC Distribution Width SD 55.8 fl (35.1-43.9); Red Blood Count 3.31 M/mm3 (4.2-5.4); White Blood Count 10.2 K/mm3 (4.4-11.0)
[2020-05-20 18:09] LABS: ALB/GLOB Ratio 0.9 RATIO (0.9-2.4); AST(SGOT) 26 U/L (15-37); Alanine Aminotransfer ALT/SGPT 16 U/L (13-56); Albumin, Serum 3.8 g/dL (3.2-5.0); Alkaline Phosphatase 107 U/L (45-117); Anion Gap 7 (5-15); BUN 30 mg/dL (7-18); Calcium,Total 9.5 mg/dL (8.5-10.1); Chloride 103 mmol/L (98-107); Creatinine, Serum 2.51 mg/dL (0.55-1.02); EST Glomerular Filtration Rate 20 mL/min (>60); Est Glom Filt Rate - Afr Amer 24 mL/min (>60); Globulin 4.1 g/dL (2.2-4.2); Glucose 90 mg/dL (74-106); Potassium 4.2 mmol/L (3.5-5.1); Protein, Total 7.9 g/dL (6.4-8.2); Sodium Level 136 mmol/L (136-145); Uric Acid 4.6 mg/dL (2.6-6.0)
== END ==
PROVIDERS: PCP Nurse Practitioner Primary Care; Referring Provider Internal Medicine Rheumatology; Visit Provider Internal Medicine Rheumatology
DX: M06.4 Inflammatory polyarthropathy (principal); M10.00 Idiopathic gout, unspecified site; M16.11 Unilateral primary osteoarthritis, right hip; M17.0 Bilateral primary osteoarthritis of knee; M51.37 Other intervertebral disc degeneration, lumbosacral region; I12.9 Hypertensive chronic kidney disease with stage 1 through stage 4 chronic kidney disease, or unspecified chronic kidney disease; N18.9 Chronic kidney disease, unspecified; M48.061 Spinal stenosis, lumbar region without neurogenic claudication; M48.02 Spinal stenosis, cervical region; I25.10 Atherosclerotic heart disease of native coronary artery without angina pectoris; Z79.899 Other long term (current) drug therapy
CPT/HCPCS: 36415; 80053; 82248; 84550; 85025

== ENCOUNTER → 2020-06-10 14:46 | Outpatient (CLI) | payer MEDICARE, OTHER, SELFPAY ==
[2020-06-10 18:12] LABS: Absolute Lymphocyte Count 2.14 X10^3/uL (0.83-4.51); Basophil% 1.2 % (0-1); Eosinophil# 0.48 X10^3/uL; Eosinophils% 5.7 % (0-5); Hematocrit 34.4 % (37-47); Hemoglobin 10.3 g/dL (12.0-15.0); Lymphocyte # 2.14 X10^3/ul (0.83-4.51); Lymphocyte % 25.5 % (19-41); Mean Corp Hgb Conc 29.9 g/dL (32-36); Mean Corpuscular Hgb 28.9 pg (27.0-32.0); Mean Corpuscular Volume 96.6 fL (81-99); Mean Platelet Vol. 11.8 fl (6.2-12.0); Monocyte# 0.64 X10^3/uL; Monocyte% 7.6 % (0-10); NRBC Flagged by Analyzer 0 % (0-5); Neutrophil % 59.6 % (47-70); Platelet Count 190 K/mm3 (150-450); RBC Distribution Width CV 17.3 % (11.6-14.6); RBC Distribution Width SD 62.2 fl (35.1-43.9); Red Blood Count 3.56 M/mm3 (4.2-5.4); White Blood Count 8.4 K/mm3 (4.4-11.0)
[2020-06-10 18:59] LABS: AST(SGOT) 26 U/L (15-37); Alanine Aminotransfer ALT/SGPT 15 U/L (13-56); Albumin, Serum 3.8 g/dL (3.2-5.0); Alkaline Phosphatase 95 U/L (45-117); Anion Gap 6 (5-15); BUN 27 mg/dL (7-18); BUN/Creat Ratio 11.6 RATIO (10-20); Calcium,Total 9.6 mg/dL (8.5-10.1); Chloride 107 mmol/L (98-107); Creatinine, Serum 2.33 mg/dL (0.55-1.02); EST Glomerular Filtration Rate 22 mL/min (>60); Est Glom Filt Rate - Afr Amer 26 mL/min (>60); Globulin 3.8 g/dL (2.2-4.2); Glucose 86 mg/dL (74-106); Potassium 4.5 mmol/L (3.5-5.1); Protein, Total 7.6 g/dL (6.4-8.2); Sodium Level 138 mmol/L (136-145)
== END ==
PROVIDERS: PCP Nurse Practitioner Primary Care; Referring Provider Internal Medicine Rheumatology; Visit Provider Internal Medicine Rheumatology
DX: M06.4 Inflammatory polyarthropathy (principal); M10.00 Idiopathic gout, unspecified site; M15.9 Polyosteoarthritis, unspecified; M51.37 Other intervertebral disc degeneration, lumbosacral region; M48.061 Spinal stenosis, lumbar region without neurogenic claudication; M48.02 Spinal stenosis, cervical region; I25.10 Atherosclerotic heart disease of native coronary artery without angina pectoris; I12.9 Hypertensive chronic kidney disease with stage 1 through stage 4 chronic kidney disease, or unspecified chronic kidney disease; N18.9 Chronic kidney disease, unspecified; Z79.899 Other long term (current) drug therapy
CPT/HCPCS: 36415; 80053; 85025

== ENCOUNTER 2020-12-11 15:52 | Inpatient (IN) | payer MEDICARE, OTHER, SELFPAY ==
[2020-12-11] VITALS (10 sets, daily range): BP systolic 138–188; BP diastolic 77–118; PULSE 91–126; RESP 14–25; TEMP 36.6–37.1; O2SAT 96–100; BMI 27.5; BMI 25.5
--- NOTE | 2020-12-11 16:07 | RAD_ITS ---
INDICATION: confused, weak EXAMINATION/TECHNIQUE: X-RAY - XR Chest 1 View COMPARISON: 05/03/2019. FINDINGS: Mild patchy opacities in the left lateral lung. The cardiomediastinal silhouette is unremarkable. Elevation of the left hemidiaphragm. No pleural effusion or pneumothorax. Degenerative changes of the thoracic spine. Left-sided shoulder arthroplasty. RAD/Chest 1 View (Portable) IMPRESSION: Mild patchy opacities in the left lateral lung could represent infection and/or edema. Electronically Signed: Davide Larios MD at 18:51 EDT Tel , Service support ,
--- NOTE | 2020-12-11 16:08 | EKG12_ITS ---
Test Reason : CONFUSION Blood Pressure : / mmHG Vent. Rate : 093 BPM Atrial Rate : 093 BPM P-R Int : 192 ms QRS Dur : 086 ms QT Int : 372 ms P-R-T Axes : 059 -31 040 degrees QTc Int : 462 ms Normal sinus rhythm Left axis deviation Inferior infarct , age undetermined Anterior infarct , age undetermined Abnormal ECG Confirmed by ANA PEÑA, [place] ([id number]), publications editor APOORVA WRIGHT ([id number]) on 12/16/2020 8:38:12 AM Referred By: BB Confirmed By:NY PEREZ MD
--- NOTE | 2020-12-11 16:09 | EX.ED.DYSGE1 ---
HPI History of Present Illness Chief Complaint: Alt LOC Informant: patient and EMS Narrative Narrative: Limited information available about this confused patient. Unknown period of time. Has a bedside commode for unknown reasons. Lives at home with her . Very limited review of systems as a result of the patient not remembering very much about what is going on. She denies having any symptoms at this time. She has no pain, headache, changes in her vision, nausea, numbness tingling or weakness. [facility] Medical History (Updated 12/12/20 @ 00:[address] Jaxson Vázquez MD) Allergies Anemia Arthritis Back pain Back problem Difficulty balancing when standing Fatigue GERD (gastroesophageal reflux disease) Heart valve problem History of blood transfusion HTN (hypertension) Kidney disease Limb weakness Neoplasm of skin of forearm Neoplasm of skin of lower leg Neoplasm of skin of neck Neoplasm of skin of upper arm Osteopenia SOB (shortness of breath) Home Medications allopurinol 200 mg PO QHS 11/06/15 [History Last Taken 12/02/20] bupropion HCl 300 mg PO DAILY 11/06/15 [History Last Taken 12/02/20] gabapentin 100 mg PO BID 11/06/15 [History Last Taken 12/02/20] omeprazole 40 mg PO BID 11/06/15 [History Last Taken 12/02/20] zolpidem 5 mg PO QHS PRN 03/23/16 [History Last Taken 12/02/20] folic acid 800 mcg PO DAILY@0800 05/17/16 [History Last Taken 12/02/20] losartan 100 mg PO QHS 11/15/17 [History Last Taken 12/02/20] polysaccharide iron complex 150 mg PO DAILYCM 11/15/17 [History Last Taken 12/02/20] atorvastatin 40 mg PO DAILY 05/03/19 [History Last Taken 12/02/20] carvedilol 25 mg PO BID 05/03/19 [History Last Taken 12/02/20] nitroglycerin 0.4 mg sublingual tablet 0.4 mg SUBLINGUAL Q5M PRN 01/31/20 [History Last Taken 12/02/20] clopidogrel 75 mg PO DAILY #0 03/11/20 [Rx Last Taken 12/02/20] amlodipine 5 mg PO DAILY 12/11/20 [History Last Taken 12/02/20] aspirin 81 mg PO DAILY 12/11/20 [History Last Taken 12/02/20] calcitriol 0.5 mcg PO DAILY 12/11/20 [History Last Taken 12/02/20] ergocalciferol (vitamin D2) 1,250 mcg PO QWEEK 12/11/20 [History Last Taken 12/02/20] ferrous sulfate 325 mg PO DAILY 12/11/20 [History Last Taken 12/02/20] leflunomide 20 mg PO DAILY 12/11/20 [History Last Taken 12/02/20] valsartan 160 mg PO DAILY 12/11/20 [History Last Taken 12/02/20] Allergy/AdvReac Type Severity Reaction Status Date / Time aspirin AdvReac not Verified 12/11/20 15:53 allowed to take aspirin codeine AdvReac Nausea Verified 12/11/20 15:53 morphine AdvReac Nausea Verified 12/11/20 15:53 NSAIDS (Non-Steroidal AdvReac not Verified 12/11/20 15:53 Anti-Inflamma supposed to take ramipril [From Altace] AdvReac COUGH Verified 12/11/20 15:53 Family History (Updated 12/11/20 @ 23:[address] Omaira Short MD) Mother Hypertension Kidney disease Depression Arthritis Anemia Father Hypertension Kidney disease Depression Arthritis Anemia Other History of blood transfusion Surgical History History of back surgery History of cardiac cath History of excision of lesion History of heart artery stent History of hip replacement History of knee surgery History of neck surgery History of tonsillectomy History of tooth extraction History of tubal ligation Social History (Updated 12/11/20 @ 23:[address] Omaira Short MD) household members: spouse Smoking Status: Never smoker alcohol intake: never substance use type: does not use additional social history: DOES TAKE ASPIRIN DOES TAKE IBUPROFEN NEEDED ROS ROS ED Review of Systems ROS Unobtainable: due to mental status Constitutional Constitutional ED: Denies chills or fever(s) Eyes Eyes: Denies change in vision or diplopia ENT ENT ED: Denies sore throat Cardiovascular Cardiovascular: Denies chest pain or palpitations Respiratory/Chest Respiratory/Chest: Denies dyspnea Gastrointestinal Gastrointestinal: Denies abdominal pain or nausea Musculoskeletal Musculoskeletal: Denies back pain or neck pain Neurologic Neurologic: Denies headache(s), paresthesias or weakness Psychiatric Psychiatric: Denies suicidal thoughts EXAM Physical Exam Const Vital Signs: 12/11/20 15:53 12/11/20 16:06 12/11/20 17:42 Temperature 98.4 F Temperature Source Oral Pulse Rate 101 H 95 Respiratory Rate 20 H 14 Respiratory Effort Normal Non-Labored Respiratory Pattern Normal Blood Pressure 185/82 H 188/87 H Blood Pressure Mean 116 120 Pulse Ox 98 97 Oxygen Delivery Method Room Air Room Air 12/11/20 18:21 12/11/20 19:13 12/11/20 20:20 Temperature Temperature Source Pulse Rate 93 126 H 92 Respiratory Rate 16 25 H 15 Respiratory Effort Respiratory Pattern Blood Pressure 138/118 H 138/110 H 172/77 H Blood Pressure Mean 124 119 108 Pulse Ox 98 100 Oxygen Delivery Method Room Air Room Air Room Air 12/11/20 21:03 12/11/20 22:24 Temperature 98 F Temperature Source Temporal Pulse Rate 91 92 Respiratory Rate 20 H 16 Respiratory Effort Respiratory Pattern Blood Pressure 150/81 H 161/77 H Blood Pressure Mean 104 105 Pulse Ox 100 96 Oxygen Delivery Method Room Air Room Air Positive well nourished and well developed General Appearance ED: well developed and NAD HEENT Reports moist mucous membranes normocephalic and atraumatic Eyes PERRL and EOMs intact bilaterally Neck full ROM and supple Resp normal respiratory effort and clear to auscultation bilaterally Cardio regular rate, regular rhythm and no murmurs GI non-tender and non-distended Auscultation: normoactive bowel sounds Palpation: soft Back/Spine no CVA tenderness General Back: other FROM Extremity normal to inspection General Extremety ED: Negative for edema, pulses abnormal or tenderness General Extremity: Negative for edema or pulses abnormal Neuro CN's II-XII intact bilaterally and no sensory deficits noted Rianna Coma Scale: document GCS findings Spontaneous Obeys Commands Confused 14 Sensorium / Orientation: awake, alert, oriented to person and orientation impaired; Negative for oriented to place or oriented to time Motor Exam: strength 5/5 throughout, muscle tone normal throughout, no tremor, no movement abnormalities noted and clonus absent Coordination: [id number] test normal Skin no rashes or lesions noted and no wounds MDM MDM MDM Narrative Medical decision making narrative: Troponin elevated with essentially normal EKG. Potassium slightly elevated, no specific hyperkalemic changes on there. I think the potassium is slightly elevated due to SANAZ/dehydration. The troponin is nonspecifically elevated and may be related to the renal abnormalities. Unclear if the chest x-ray findings represent pneumonia or not. We will send her for a CT to decipher since she has no leukocytosis or lactic acidosis. CT shows bilateral patchy multifocal infiltrates suspicious for Covid so I did send a Covid test, that is pending. -Checked later, returned positive. Lab Data Attestation: I reviewed the patient's lab results. Labs: Laboratory Results - last 24 hr 12/11/20 12/11/20 12/11/20 15:40 15:40 16:26 WBC 5.9 RBC 3.73 L Hgb 12.5 Hct 35.3 L MCV 94.6 MCH 33.5 H MCHC 35.4 RDW Std Deviation 51.2 H RDW Coeff of Arik 14.6 Plt Count 148 L MPV 12.5 H Immature Gran % (Auto) 0.500 Neut % (Auto) 72.0 H Lymph % (Auto) 20.0 [place] % (Auto) 7.1 Eos % (Auto) 0.2 Baso % (Auto) 0.2 Absolute Neuts (auto) 4.3 Absolute Lymphs (auto) 1.18 Nucleated RBC % 0 Sodium 136 Potassium 5.2 H Chloride 106 Carbon Dioxide 20.0 L Anion Gap 10 BUN 57 H Creatinine 2.35 H Estim Creat Clear Calc 15.86 Est GFR (MDRD) Af Amer 26 L Est GFR (MDRD) Non-Af 21 L BUN/Creatinine Ratio 24.3 H Glucose 88 Lactic Acid Calcium 9.3 Total Bilirubin 0.40 AST 45 H ALT 14 Alkaline Phosphatase 83 Troponin I High Sens 204 H* Total Protein 8.4 H Albumin 3.7 Globulin 4.7 H Albumin/Globulin Ratio 0.8 L Procalcitonin Urine Color Urine Clarity Urine pH Ur Specific [place] Urine Protein Urine Glucose (UA) Urine Ketones Urine Occult Blood Urine Nitrite Urine Bilirubin Urine Urobilinogen Ur Leukocyte Esterase Urine RBC Urine WBC Ur Squamous Epith Cells Amorphous Sediment Urine Bacteria Urine Mucus Urine Opiates Screen Urine Methadone Screen Ur Barbiturates Screen Ur Phencyclidine Scrn Ur Amphetamines Screen U Methamphetamin-MDMA U Benzodiazepines Scrn Urine Cocaine Screen U Cannabinoids Screen Ur Drug Screen Comment Ethyl Alcohol 4.0 12/11/20 12/11/20 12/11/20 16:26 16:26 17:46 WBC RBC Hgb Hct MCV MCH MCHC RDW Std Deviation RDW Coeff of Arik Plt Count MPV Immature Gran % (Auto) Neut % (Auto) Lymph % (Auto) [place] % (Auto) Eos % (Auto) Baso % (Auto) Absolute Neuts (auto) Absolute Lymphs (auto) Nucleated RBC % Sodium Potassium Chloride Carbon Dioxide Anion Gap BUN Creatinine Estim Creat Clear Calc Est GFR (MDRD) Af Amer Est GFR (MDRD) Non-Af BUN/Creatinine Ratio Glucose Lactic Acid 0.9 Calcium Total Bilirubin AST ALT Alkaline Phosphatase Troponin I High Sens Total Protein Albumin Globulin Albumin/Globulin Ratio Procalcitonin 0.22 H Urine Color Yellow Urine Clarity Sl. Cloudy Urine pH 5.0 Ur Specific [place] 1.020 Urine Protein 100 H Urine Glucose (UA) Normal Urine Ketones 15 H Urine Occult Blood 25 H Urine Nitrite Negative Urine Bilirubin Negative Urine Urobilinogen Normal Ur Leukocyte Esterase Negative Urine RBC 0 SEEN Urine WBC 0 SEEN Ur Squamous Epith Cells 0-5 SEEN Amorphous Sediment 1+ Urine Bacteria 1+ Urine Mucus 0 SEEN Urine Opiates Screen Urine Methadone Screen Ur Barbiturates Screen Ur Phencyclidine Scrn Ur Amphetamines Screen U Methamphetamin-MDMA U Benzodiazepines Scrn Urine Cocaine Screen U Cannabinoids Screen Ur Drug Screen Comment Ethyl Alcohol 12/11/20 17:46 WBC RBC Hgb Hct MCV MCH MCHC RDW Std Deviation RDW Coeff of Arik Plt Count MPV Immature Gran % (Auto) Neut % (Auto) Lymph % (Auto) [place] % (Auto) Eos % (Auto) Baso % (Auto) Absolute Neuts (auto) Absolute Lymphs (auto) Nucleated RBC % Sodium Potassium Chloride Carbon Dioxide Anion Gap BUN Creatinine Estim Creat Clear Calc Est GFR (MDRD) Af Amer Est GFR (MDRD) Non-Af BUN/Creatinine Ratio Glucose Lactic Acid Calcium Total Bilirubin AST ALT Alkaline Phosphatase Troponin I High Sens Total Protein Albumin Globulin Albumin/Globulin Ratio Procalcitonin Urine Color Urine Clarity Urine pH Ur Specific [place] Urine Protein Urine Glucose (UA) Urine Ketones Urine Occult Blood Urine Nitrite Urine Bilirubin Urine Urobilinogen Ur Leukocyte Esterase Urine RBC Urine WBC Ur Squamous Epith Cells Amorphous Sediment Urine Bacteria Urine Mucus Urine Opiates Screen NEGATIVE Urine Methadone Screen NEGATIVE Ur Barbiturates Screen NEGATIVE Ur Phencyclidine Scrn NEGATIVE Ur Amphetamines Screen NEGATIVE U Methamphetamin-MDMA POSITIVE H U Benzodiazepines Scrn NEGATIVE Urine Cocaine Screen NEGATIVE U Cannabinoids Screen NEGATIVE Ur Drug Screen Comment Ethyl Alcohol Radiography Diagnostic Testing: Clinical Impression(s) from Imaging Studies Chest X-Ray 12/11/20 16:07 IMPRESSION: Mild patchy opacities in the left lateral lung could represent infection and/or edema. Electronically Signed: Davide Larios MD at 18:51 EDT Tel , Service support , Brain CT 12/11/20 18:12 IMPRESSION: No acute intracranial abnormality. Chronic involutional and ischemic changes of the brain. Electronically Signed: Davide Larios MD at 18:43 EDT Tel , Service support , Chest CT 12/11/20 19:17 IMPRESSION: Multifocal groundglass pulmonary opacities may be consistent with Covid pneumonia in the appropriate clinical setting. Electronically Signed: Avery Reynolds MD at 21:10 EDT Tel , Service support , EKG Initial EKG: Attestation: I personally reviewed and interpreted this EKG as follows: Interpretation: Sinus Rhythm and LAFB Comments: Inferior and anterior Q waves without ST segment deviations Prior: Unchanged ([place] and inferior infarct findings are unchanged, patient has Q waves in V1 and V3 that are new but no Q waves in V2, of unknown significance) Discharge Plan Dx/Rx/DC Orders Clinical Impression: Delirium due to another medical condition, Dehydration, Elevated troponin, Pneumonia due to 2019 novel coronavirus Disposition Disposition: Acute Care Hospital [facility] Discharge Date/Time: 12/11/20 22:25
[2020-12-11 16:25] LABS: Absolute Lymphocyte Count 1.18 X10^3/uL (0.83-4.51); Absolute Neutrophil Count 4.3 X10^3/uL (2.0-7.7); Basophil# 0.01 X10^3/uL; Basophil% 0.2 % (0-1); Eosinophil# 0.01 X10^3/uL; Eosinophils% 0.2 % (0-5); Hematocrit 35.3 % (37-47); Hemoglobin 12.5 g/dL (12.0-15.0); Lymphocyte # 1.18 X10^3/ul (0.83-4.51); Mean Corp Hgb Conc 35.4 g/dL (32-36); Mean Corpuscular Hgb 33.5 pg (27.0-32.0); Mean Corpuscular Volume 94.6 fL (81-99); Mean Platelet Vol. 12.5 fl (6.2-12.0); Monocyte# 0.42 X10^3/uL; Monocyte% 7.1 % (0-10); NRBC Flagged by Analyzer 0 % (0-5); Neutrophil # 4.26 X10^3/uL (2.7-7.7); Platelet Count 148 K/mm3 (150-450); RBC Distribution Width CV 14.6 % (11.6-14.6); RBC Distribution Width SD 51.2 fl (35.1-43.9); Red Blood Count 3.73 M/mm3 (4.2-5.4); White Blood Count 5.9 K/mm3 (4.4-11.0)
[2020-12-11 16:58] LABS: Lactic Acid 0.9 mmol/L (0.4-1.9)
[2020-12-11 17:05] LABS: ALB/GLOB Ratio 0.8 RATIO (0.9-2.4); AST(SGOT) 45 U/L (15-37); Alanine Aminotransfer ALT/SGPT 14 U/L (13-56); Albumin, Serum 3.7 g/dL (3.2-5.0); Alkaline Phosphatase 83 U/L (45-117); Anion Gap 10 (5-15); BUN 57 mg/dL (7-18); BUN/Creat Ratio 24.3 RATIO (10-20); Calcium,Total 9.3 mg/dL (8.5-10.1); Chloride 106 mmol/L (98-107); Creatinine, Serum 2.35 mg/dL (0.55-1.02); EST Glomerular Filtration Rate 21 mL/min (>60); Est Glom Filt Rate - Afr Amer 26 mL/min (>60); Estimated Creatinine Clearance 15.86 ml/min; Globulin 4.7 g/dL (2.2-4.2); Glucose 88 mg/dL (74-106); Potassium 5.2 mmol/L (3.5-5.1); Protein, Total 8.4 g/dL (6.4-8.2); Sodium Level 136 mmol/L (136-145); Troponin-I HS 204 pg/mL (3.0-54.0)
[2020-12-11 17:58] LABS: Color, Urine Yellow (Yellow); Glucose, Dipstick Normal (Normal); Ketone-Dipstick 15 mg/dl (Negative); Leukocyte Esterase-Dipstick Negative /ul (Negative); Mucous, Urine 0 SEEN /hpf (<or=2+); Nitrite-Dipstick Negative (Negative); Occult Blood-Urine 25 /ul (Negative); Protein-Dipstick 100 mg/dl (Negative); Red Blood Cells-Urine 0 SEEN /hpf (0-5); Urine Bilirubin Dipstick Negative (Negative); Urine Clarity Sl. Cloudy (Clear); Urine Urobilinogen Normal (Normal); White Blood Cells 0 SEEN /hpf (0-5)
[2020-12-11] MEDS: 0.9% Normal Saline 1,000 ML 150 ML IV (17:58)
[2020-12-11 18:11] LABS: Amphetamine Urine VISTA NEGATIVE (<1000 ng/mL); Barbiturate Urine VISTA NEGATIVE (< 200 ng/mL); Benzodiazepine Urine VISTA NEGATIVE (< 200 ng/mL); Cocaine Urine VISTA NEGATIVE (< 300 ng/mL); Ecstacy Urine VISTA POSITIVE (< 500 ng/mL); Methadone Urine VISTA NEGATIVE (< 300 ng/mL); PCP Urine VISTA NEGATIVE (< 25 ng/mL); THC Urine VISTA NEGATIVE (< 50 ng/mL); Vista UDS pH Range 5
--- NOTE | 2020-12-11 18:12 | CT_ITS ---
EXAMINATION : Head CT w/out contrast HISTORY : confusion COMPARISON : 03/11/2020. TECHNIQUE : Multiple contiguous axial images were obtained from the skull base to the vertex without intravenous contrast. A radiation dose optimization technique was used for this scan. FINDINGS : There is no evidence for acute intracranial hemorrhage, mass effect, or midline shift. There is no extra-axial fluid collection. There are periventricular white matter changes consistent with chronic microvascular ischemic disease. There is sulcal widening and ventricular enlargement consistent with cerebral atrophy. There is normal dean-white differentiation, without CT evidence of acute ischemia or infarct. The skull base and calvarium are unremarkable. The orbits are unremarkable. The paranasal sinuses are clear. The mastoid air cells are well-aerated. The soft tissues are unremarkable. CT/Brain/Head without Contrast IMPRESSION: No acute intracranial abnormality. Chronic involutional and ischemic changes of the brain. Electronically Signed: Davide Larios MD at 18:43 EDT Tel , Service support ,
[2020-12-11 18:20] LABS: Amorphous Sediment 1+; Bacteria 1+ /hpf (None Seen); Squamous Epithelial Cells - UA 0-5 SEEN /hpf (5-10)
--- NOTE | 2020-12-11 19:17 | CT_ITS ---
STUDY: CT CHEST WITHOUT CONTRAST REASON FOR EXAM: Female, 75 years old. Weakness, abn CXR RADIATION DOSAGE (If Supplied By Facility): CTDIvol = ( 14.37 ) mGy, DLP = ( 524.26 ) mGycm TECHNIQUE: Transaxial imaging was performed without the administration of intravenous contrast material. Individualized dose optimization techniques were used for this CT. COMPARISON: None. FINDINGS: Multifocal groundglass pulmonary opacities prominently within the left lower lobe. There is no demonstrated pleural abnormality. There are calcifications of the coronary arteries. Normal mediastinum. Normal hilar regions. Normal unenhanced pulmonary arteries. Normal aorta arch and descending thoracic aorta. There is an increased kyphosis of the thoracic spine. There is no demonstrated abnormality of the visualized upper abdomen. CT/Chest without Contrast IMPRESSION: Multifocal groundglass pulmonary opacities may be consistent with Covid pneumonia in the appropriate clinical setting. Electronically Signed: Avery Reynolds MD at 21:10 EDT Tel , Service support ,
--- NOTE | 2020-12-11 21:36 | PCM.HP.STD ---
HPI - General General Date of Admission: 12/11/20 Date of Service: 12/11/20 Chief Complaint: Fatigue, malaise, decreased intake, confusion. HPI Narrative The patient is a 75 y/o F w/ PMHx: CKD stage III unclear subtype, OA, Chronic anemia/iron deficiency, GERD, HTN, HLD, Chronic imbalance, CAD s/p PCI who presents to the [facility] ED on 12/11/20 with history of feeling her baseline until this Tuesday with notable fatigue, malaise, poor intake with increasing generalized weakness, debility, staying in bed all day with notable onset confusion without at that time any fever, chills, nausea, emesis, abdominal pain, chest pain, cough or dyspnea prompting ED evaluation, brought per her spouse. Patient has been vaccinated against COVID-19. Once patient resulted positive for COVID, contacted her spouse and he relayed feeling well without any marked symptoms. He noted they have been out shopping and to doctors visits. Work-up in the ED included T 98.4, heart rate initially 101 with most recent repeat 93, BP initially 185/82 with most recent repeat 138/118, respiratory rate 20, 98% on room air, CBC with WBC 5.9, hemoglobin 12.5, platelet 148 without marked shift, CMP with potassium 5.2, carbon dioxide 20, BUN/creatinine 57/2.35, lactic acid 0.9, AST/ALT 45/14, high-sensitivity cardiac troponin 204, chest x-ray with mild patchy opacities left lateral lung possibly infectious and/or edema, CT of the head with no acute intracranial findings with chronic involutional ischemic changes, CT chest with multifocal ground-glass pulmonary opacities consistent with Covid pneumonia, EKG with sinus rhythm with LAFB with anterior and inferior Q waves without ST segment deviations unchanged from prior, blood culture x2 pending per ED, COVID rapid testing returned positive. [facility] Medical History (Updated 12/11/20 @ 23:[address] Omaira Short MD) Allergies Anemia Arthritis Back pain Back problem Difficulty balancing when standing Fatigue GERD (gastroesophageal reflux disease) Heart valve problem History of blood transfusion HTN (hypertension) Kidney disease Limb weakness Neoplasm of skin of forearm Neoplasm of skin of lower leg Neoplasm of skin of neck Neoplasm of skin of upper arm Osteopenia SOB (shortness of breath) Home Medications allopurinol 200 mg PO QHS 11/06/15 [History Last Taken 12/02/20] bupropion HCl 300 mg PO DAILY 11/06/15 [History Last Taken 12/02/20] gabapentin 100 mg PO BID 11/06/15 [History Last Taken 12/02/20] omeprazole 40 mg PO BID 11/06/15 [History Last Taken 12/02/20] zolpidem 5 mg PO QHS PRN 03/23/16 [History Last Taken 12/02/20] folic acid 800 mcg PO DAILY@0800 05/17/16 [History Last Taken 12/02/20] losartan 100 mg PO QHS 11/15/17 [History Last Taken 12/02/20] polysaccharide iron complex 150 mg PO DAILYCM 11/15/17 [History Last Taken 12/02/20] atorvastatin 40 mg PO DAILY 05/03/19 [History Last Taken 12/02/20] carvedilol 25 mg PO BID 05/03/19 [History Last Taken 12/02/20] nitroglycerin 0.4 mg sublingual tablet 0.4 mg SUBLINGUAL Q5M PRN 01/31/20 [History Last Taken 12/02/20] clopidogrel 75 mg PO DAILY #0 03/11/20 [Rx Last Taken 12/02/20] amlodipine 5 mg PO DAILY 12/11/20 [History Last Taken 12/02/20] aspirin 81 mg PO DAILY 12/11/20 [History Last Taken 12/02/20] calcitriol 0.5 mcg PO DAILY 12/11/20 [History Last Taken 12/02/20] ergocalciferol (vitamin D2) 1,250 mcg PO QWEEK 12/11/20 [History Last Taken 12/02/20] ferrous sulfate 325 mg PO DAILY 12/11/20 [History Last Taken 12/02/20] leflunomide 20 mg PO DAILY 12/11/20 [History Last Taken 12/02/20] valsartan 160 mg PO DAILY 12/11/20 [History Last Taken 12/02/20] Allergy/AdvReac Type Severity Reaction Status Date / Time aspirin AdvReac not Verified 12/11/20 15:53 allowed to take aspirin codeine AdvReac Nausea Verified 12/11/20 15:53 morphine AdvReac Nausea Verified 12/11/20 15:53 NSAIDS (Non-Steroidal AdvReac not Verified 12/11/20 15:53 Anti-Inflamma supposed to take ramipril [From Altace] AdvReac COUGH Verified 12/11/20 15:53 Family History (Updated 12/11/20 @ 23:[address] Omaira Short MD) Mother Hypertension Kidney disease Depression Arthritis Anemia Father Hypertension Kidney disease Depression Arthritis Anemia Other History of blood transfusion Surgical History History of back surgery History of cardiac cath History of excision of lesion History of heart artery stent History of hip replacement History of knee surgery History of neck surgery History of tonsillectomy History of tooth extraction History of tubal ligation Social History (Updated 12/11/20 @ 23:[address] Omaira Short MD) household members: spouse Smoking Status: Never smoker alcohol intake: never substance use type: does not use additional social history: DOES TAKE ASPIRIN DOES TAKE IBUPROFEN NEEDED ROS ROS Narrative Admission Review of Systems: CONSTITUTIONAL: No weight loss, fever, chills, + weakness or fatigue. HEENT: Eyes: No visual loss, blurred vision, double vision or yellow sclerae. Ears, Nose, Throat: No hearing loss, sneezing, congestion, runny nose or sore throat. SKIN: No rash or itching, lesions, wounds. CARDIOVASCULAR: No chest pain, chest pressure or chest discomfort, palpitations, edema, orthopnea, syncopal events. RESPIRATORY: No shortness of breath, cough or sputum, wheezing, hemoptysis. GASTROINTESTINAL: + anorexia, No nausea, vomiting or diarrhea, abdominal pain, melena, BRBPR. GENITOURINARY: No dysuria, frequency, urgency or retention. NEUROLOGICAL: + Confusion. No headache, dizziness, syncope, paralysis, ataxia, numbness or tingling in the extremities, focal weakness, change in bowel or bladder control, seizure. MUSCULOSKELETAL: + muscle, back pain, joint pain or stiffness. HEMATOLOGIC: + anemia, bleeding or bruising. LYMPHATICS: No enlarged nodes. No history of splenectomy. PSYCHIATRIC: No history of depression or anxiety. ENDOCRINOLOGIC: No reports of sweating, cold or heat intolerance. No polyuria or polydipsia. ALLERGIES: No history of asthma, hives, eczema or rhinitis. Vital Signs Vital Signs Vital Signs: 12/11/20 15:53 12/11/20 16:06 12/11/20 17:42 Temperature 98.4 F Temperature Source Oral Pulse Rate 101 H 95 Respiratory Rate 20 H 14 Respiratory Effort Normal Non-Labored Respiratory Pattern Normal Blood Pressure 185/82 H 188/87 H Blood Pressure Mean 116 120 Pulse Ox 98 97 Oxygen Delivery Method Room Air Room Air 12/11/20 18:21 12/11/20 19:13 12/11/20 20:20 Temperature Temperature Source Pulse Rate 93 126 H 92 Respiratory Rate 16 25 H 15 Respiratory Effort Respiratory Pattern Blood Pressure 138/118 H 138/110 H 172/77 H Blood Pressure Mean 124 119 108 Pulse Ox 98 100 Oxygen Delivery Method Room Air Room Air Room Air 12/11/20 21:03 Temperature Temperature Source Pulse Rate 91 Respiratory Rate 20 H Respiratory Effort Respiratory Pattern Blood Pressure 150/81 H Blood Pressure Mean 104 Pulse Ox 100 Oxygen Delivery Method Room Air Weight Weight: 150 lb 9.211 oz Body Mass Index (BMI) 27.5 Physical Exam Narrative Physical Examination: General: Awake, alert, oriented to self and place, cannot given several other specifics but can have general conversation, remains cooperative, seated upright in the ED bed in no apparent distress but fatigued and mildly disheveled appearing. Skin: Normal color, normal turgor, no icterus, no cyanosis. HEENT: AT/NC, EOMI, PERRLA, dry MM, no carotid bruits or JVD noted. Lungs: Diminished, greater bases, moderate effort, no rales, ronchi or wheezing. Heart: Mildly tachycardic with regular rhythm; no gallop, rub audible. Abdomen: Soft, NTTP, ND, moderately hyperactive BS, no HSM. Extremities: No cyanosis, clubbing, or edema. Neurological: Patient awake, alert, oriented as noted, cognitive function not baseline intact; pupils equally reactive to light and accommodation, cranial nerves II-XII grossly normal, moving all 4 extremities, no focal deficits, strength severely global decrease secondary to acute presentation. Psychiatric: Affect appears flat, fatigued, no acute evidence of depressive or anxiety feelings. Results Lab / Micro Data Result Diagrams: 12/11/20 15:40 12/11/20 15:40 Labs: Laboratory Results - last 24 hr 12/11/20 15:40: WBC 5.9, RBC 3.73 L, Hgb 12.5, Hct 35.3 L, MCV 94.6, MCH 33.5 H, MCHC 35.4, RDW Std Deviation 51.2 H, RDW Coeff of Arik 14.6, Plt Count 148 L, MPV 12.5 H, Immature Gran % (Auto) 0.500, Neut % (Auto) 72.0 H, Lymph % (Auto) 20.0, Wallace % (Auto) 7.1, Eos % (Auto) 0.2, Baso % (Auto) 0.2, Absolute Neuts (auto) 4.3, Absolute Lymphs (auto) 1.18, Nucleated RBC % 0 12/11/20 15:40: Sodium 136, Potassium 5.2 H, Chloride 106, Carbon Dioxide 20.0 L, Anion Gap 10, BUN 57 H, Creatinine 2.35 H, Estim Creat Clear Calc 15.86, Est GFR (MDRD) Af Amer 26 L, Est GFR (MDRD) Non-Af 21 L, BUN/Creatinine Ratio 24.3 H, Glucose 88, Calcium 9.3, Total Bilirubin 0.40, AST 45 H, ALT 14, Alkaline Phosphatase 83, Troponin I High Sens 204 H*, Total Protein 8.4 H, Albumin 3.7, Globulin 4.7 H, Albumin/Globulin Ratio 0.8 L 12/11/20 16:26: Ethyl Alcohol 4.0 12/11/20 16:26: Lactic Acid 0.9 12/11/20 17:46: Urine Color Yellow, Urine Clarity Sl. Cloudy, Urine pH 5.0, Ur Specific [place] 1.020, Urine Protein 100 H, Urine Glucose (UA) Normal, Urine Ketones 15 H, Urine Occult Blood 25 H, Urine Nitrite Negative, Urine Bilirubin Negative, Urine Urobilinogen Normal, Ur Leukocyte Esterase Negative, Urine RBC 0 SEEN, Urine WBC 0 SEEN, Ur Squamous Epith Cells 0-5 SEEN, Amorphous Sediment 1+, Urine Bacteria 1+, Urine Mucus 0 SEEN 12/11/20 17:46: Urine Opiates Screen NEGATIVE, Urine Methadone Screen NEGATIVE, Ur Barbiturates Screen NEGATIVE, Ur Phencyclidine Scrn NEGATIVE, Ur Amphetamines Screen NEGATIVE, U Methamphetamin-MDMA POSITIVE H, U Benzodiazepines Scrn NEGATIVE, Urine Cocaine Screen NEGATIVE, U Cannabinoids Screen NEGATIVE, Ur Drug Screen Comment Radiology Impression Chest X-Ray 12/11/20 16:07 IMPRESSION: Mild patchy opacities in the left lateral lung could represent infection and/or edema. Electronically Signed: Davide Larios MD at 18:51 EDT Tel , Service support , Brain CT 12/11/20 18:12 IMPRESSION: No acute intracranial abnormality. Chronic involutional and ischemic changes of the brain. Electronically Signed: Davide Larios MD at 18:43 EDT Tel , Service support , Chest CT 12/11/20 19:17 IMPRESSION: Multifocal groundglass pulmonary opacities may be consistent with Covid pneumonia in the appropriate clinical setting. Electronically Signed: Avery Reynolds MD at 21:10 EDT Tel , Service support , Assessment & Plan Assessment/Plan (1) Pneumonia due to COVID-19 virus: PLAN: The patient is a 75 y/o F w/ PMHx: CKD stage III unclear subtype, OA, Chronic anemia/iron deficiency, GERD, HTN, HLD, Chronic imbalance, CAD s/p PCI who presents to the [facility] ED on 12/11/20 with history of feeling her baseline until this Tuesday with notable fatigue, malaise, poor intake with increasing generalized weakness, debility, staying in bed all day with notable onset confusion without at that time any fever, chills, nausea, emesis, abdominal pain, chest pain, cough or dyspnea prompting ED evaluation, brought per her spouse. 1. Acute Bilateral Pneumonia secondary to Acute Viral Syndrome, COVID-19: Given CT chest high suspicion for COVID rapid COVID obtained and noted positive. Will admit to PCU given #2, maintain on monitor given indeterminate cardiac enzyme concurrently, will maintain on oxygen with wean as tolerated to room air, PRN albuterol, HOB, IS parameters w/ pending sputum cultures, respiratory viral panel and urine antigens, will obtain D-dimer, procalcitonin, CRP, CPK, Ferritin, LDH and BNP, continue supportive care including q 2 hour turning including prone given no prone bed availability and judicious hydration, closely monitor for worsening status for ARDS and multiorgan failure, will defer decadron given no hypoxia and given difficulty, defer remdesivir given no overt hypoxia. 2. Indeterminate cardiac enzyme: EKG in ED with sinus rhythm with LAFB with anterior and inferior Q waves without ST segment deviations unchanged from prior, CXR w/ mild patchy opacities in the left lateral lung possibly infectious and/or edema, initial trop high-sensitivity 204. Will admit maintain on a monitored bed to assure no acute myocardial infarction with serial cardiac enzymes and EKGs. Magnesium level requested with supplementation if needed. FLP in AM. If cardiac enzymes continue to further trend upward will initiate heparin drip. ASA, NG, morphine. Most recent echocardiogram noted 12/25/2018 with normal LV size, normal LV systolic function, EF 65%, stage I diastolic dysfunction with contrast injection performed at that time. 3. Acute encephalopathy, likely secondary to #1: Patient with altered mental status per report however extremely poor historian, debilitated at home and per report even has been using a bedside commode, will maintain on monitor, maintain on fall precautions, pending ammonia level; however, COVID returned positive in the interim thus likely etiology. May need to consider MRI brain if not improving. 4. CAD: Status post PCI, will continue patient aspirin, Plavix, statin, Coreg, clarifying if patient is on losartan or valsartan as currently both are listed. Continue evaluation as noted above. 5. Hypertension: Continue home regimen including amlodipine, Coreg, will need to clarify as patient is listed as being both on losartan and on valsartan with hold parameters as needed, PRN hydralazine. 6. Hyperlipidemia: Continue home statin regimen. AM FLP. 7. Chronic anemia/iron deficiency: Admission hemoglobin 12.5, baseline primarily 8-10, will repeat in a.m., continue iron supplementation 8. Chronic Kidney Disease Stage III, unclear subtype: Admission BUN/Cr 57/2.35, baseline renal function 2.0-2.5, repeat BMP in AM. 9. Gout: We will continue patient home allopurinol regimen. 10. GERD: We will maintain on PPI. 11. DVT prophylaxis: SCDs, heparin chemoprophylaxis however if troponin further rises will transition to heparin drip. 12. CODE status: Patient's does report that she states she is healthcare power of insurance defense attorney and living will in place but he is unsure. Given her Covid pneumonia admission and confusion discussed with patient's her CODE status at length including difference between FULL code, DNR-CCA and DNR-CC status. Following discussions about the differences in these status, requested Full Code status. Advanced Care Planning Face to Face Time: 16 minutes. Charges/Coding Visit Charges Inpatient E&M: 02876 Init Hosp L3 Procedures Hospitalists Procedures: 39745 Advncd Care Plan 30 Min
--- NOTE | 2020-12-11 22:15 | CM.ED ---
SW Note Referral Source: inspection machine tender Reason: Concern regarding patient being appropriately cared for in the home RN Urbano spoke to this travel writer. He said that EMS reported that patient was brought to the ED for not acting right and that , who was supposed to manage patient's meds, did not know the location of the medication when asked. EMS also reported that patient's Bedside commode in her room was full. EMS reports concern regarding patient and her care in the home. SW asked if this was documented and RN stated he documented it in the triage notes.SW reviewed chart and noted patient is going to [id number]. BETHANY called [facility] APS and left voice mail for Tio Jennings advising her of the concerns that EMS was reporting. SW stated patient is being admitted to PCU. SW sent update in Daily Report. Plan: APS referral by this travel writer. Alayna RICHARDSON
--- NOTE | 2020-12-11 22:34 | PCS.PANDOC ---
PANDEMIC DOCUMENTATION INITIATED: Date: 10/06/2020 Time: 190
[2020-12-11] MEDS: 0.9% Normal Saline 1,000 ML 100 ML IV (23:07)
[2020-12-11 23:19] LABS: Procalcitonin 0.22 ng/mL (0.00-0.09)
[2020-12-11] MEDS: Losartan Potassium 100 MG Tablet PO (23:21)
[2020-12-11] MEDS: Carvedilol 25 MG Tablet PO (23:21)
[2020-12-11 23:58] LABS: D-Dimer Quantitative (DVT/PE) 1.93 FEU/ug/m (0.27-0.49)
[2020-12-12] VITALS (10 sets, daily range): BP systolic 114–159; BP diastolic 57–76; PULSE 55–80; RESP 15–16; TEMP 36.9–37.2; O2SAT 94–97
[2020-12-12 00:14] LABS: International Normalized Ratio 1.1; Prothrombin Time (Protime)PT. 13.8 SECONDS (11.7-14.9)
[2020-12-12 00:15] LABS: Partial Thromboplast Time 32.9 Seconds (24.1-36.2)
[2020-12-12 00:36] LABS: Ammonia < 10.0 umol/L (11-32); BNP,B-Type NATRIURETIC PEPTIDE 137.4 pg/mL (0-100)
[2020-12-12 00:38] LABS: Ferritin 963 ng/mL (8-252); LDH 226 U/L (84-246); Troponin-I HS 222 pg/mL (3.0-54.0)
[2020-12-12] MEDS: HEPARIN/D5w 25,000 UNITS 25,000 UNITS/250 ML IV.SOLN. 10 UNITS IV (00:45)
[2020-12-12] MEDS: Heparin Injection (Vial) 5,000 UNIT/ML VIAL 4500 UNIT IV (00:47)
[2020-12-12 05:33] LABS: Troponin-I HS 201 pg/mL (3.0-54.0)
--- NOTE | 2020-12-12 05:55 | EKG12_ITS ---
Test Reason : AM Blood Pressure : / mmHG Vent. Rate : 066 BPM Atrial Rate : 066 BPM P-R Int : 192 ms QRS Dur : 056 ms QT Int : 426 ms P-R-T Axes : 053 -28 039 degrees QTc Int : 446 ms Normal sinus rhythm Anterior infarct , age undetermined , cannot be excluded Abnormal ECG Confirmed by DEBI EPÑA, VINH ([id number]), subeditor APOORVA WRIGHT ([id number]) on 12/17/2020 9:32:34 AM Referred By: REYNA Confirmed By:VINH CARRERA MD
[2020-12-12 07:47] LABS: Absolute Neutrophil Count 3.2 X10^3/uL (2.0-7.7); Basophil# 0.01 X10^3/uL; Basophil% 0.2 % (0-1); Eosinophil# 0.06 X10^3/uL; Eosinophils% 1.2 % (0-5); Hematocrit 31.1 % (37-47); Hemoglobin 9.9 g/dL (12.0-15.0); Lymphocyte % 24.4 % (19-41); Mean Corp Hgb Conc 31.8 g/dL (32-36); Mean Corpuscular Hgb 30.7 pg (27.0-32.0); Mean Corpuscular Volume 96.6 fL (81-99); Mean Platelet Vol. 12.2 fl (6.2-12.0); Monocyte# 0.47 X10^3/uL; Monocyte% 9.6 % (0-10); NRBC Flagged by Analyzer 0 % (0-5); Neutrophil # 3.15 X10^3/uL (2.7-7.7); Platelet Count 119 K/mm3 (150-450); RBC Distribution Width CV 14.6 % (11.6-14.6); RBC Distribution Width SD 51.5 fl (35.1-43.9); Red Blood Count 3.22 M/mm3 (4.2-5.4); White Blood Count 4.9 K/mm3 (4.4-11.0)
[2020-12-12 08:16] LABS: ALB/GLOB Ratio 0.8 RATIO (0.9-2.4); AST(SGOT) 37 U/L (15-37); Alanine Aminotransfer ALT/SGPT 13 U/L (13-56); Alkaline Phosphatase 66 U/L (45-117); Anion Gap 9 (5-15); BUN 50 mg/dL (7-18); BUN/Creat Ratio 24.8 RATIO (10-20); Calcium,Total 8.6 mg/dL (8.5-10.1); Chloride 110 mmol/L (98-107); Creatinine, Serum 2.02 mg/dL (0.55-1.02); EST Glomerular Filtration Rate 25 mL/min (>60); Est Glom Filt Rate - Afr Amer 31 mL/min (>60); Estimated Creatinine Clearance 18.45 ml/min; Globulin 3.9 g/dL (2.2-4.2); Glucose 68 mg/dL (74-106); Potassium 4.6 mmol/L (3.5-5.1); Protein, Total 6.9 g/dL (6.4-8.2); Sodium Level 139 mmol/L (136-145)
[2020-12-12 08:33] LABS: Partial Thromboplast Time 184.8 Seconds (24.1-36.2)
[2020-12-12] MEDS: Carvedilol 25 MG Tablet PO ×2 (08:52→21:45)
[2020-12-12] MEDS: Calcitriol 0.25 MCG Capsule 0.5 MCG PO (08:52)
[2020-12-12] MEDS: buPROPion (XL) 300 MG TABLET.XL PO (08:52)
[2020-12-12] MEDS: Pantoprazole Sodium 40 MG Tablet PO ×2 (08:53→21:44)
[2020-12-12] MEDS: Ferrous Sulfate 325 MG Tablet PO (08:53)
[2020-12-12] MEDS: amLODIPine 5 MG Tablet PO (08:53)
[2020-12-12] MEDS: Clopidogrel Bisulfate 75 MG Tablet PO (08:53)
[2020-12-12] MEDS: Aspirin 81 MG TAB.CHEW PO (08:53)
[2020-12-12] MEDS: Iron Polysaccharide Complex 150 MG CAPSULE PO (08:53)
[2020-12-12] MEDS: Leflunomide 10 MG TABLET 20 MG PO (08:53)
[2020-12-12] MEDS: Gabapentin 100 MG Capsule PO ×2 (08:53→21:44)
[2020-12-12] MEDS: Folic Acid 1 MG Tablet PO (08:53)
[2020-12-12] MEDS: Menthol/Lanolin/Calamine/Znox 113 GM Tube 1 APPLIC TOPICAL ×4 (08:54→21:49)
--- NOTE | 2020-12-12 13:47 | CASEMGMT ---
RN CM called for initial transition planning/care coordination assessment as patient is confused, drowsy, and not able to participate. RN CM introduced self and role at [facility]. , Pablo willing to participate in assessment and is able to answer all questions appropriately. Care providers, pharmacy, and demographics verified. wishes for patient to discharge home will monitor for HHC pending progress with therapy. states he has no further needs or concerns at this time. CM to follow for discharge planning needs that may arise. PCP: Barry Specialists: Michell, pain; Daniela RA; Roseanne, finisher cold rolling; Linnette, ortho Preferred Pharmacy: [facility] Insurance: [employer], [employer] Prescription Benefit: yes Living Will/HPOA: yes, Pablo Losinger LNOK: Living Arrangements: Patient lives with in a 2 story home with bed and bath on first floor. Patient was independent at home prior to hospitalization. Transportation: DME/HHC: Patient has shower chair, raised toilet, cane, walker, rollator, and grab bars at home. Patient has previously been to TCU. had no preferences for DME or HHC. List reviewed over the phone and would like [facility] and [facility]. Disposition Plan: Patient to discharge home with family support and follow-up plans in place. Ariane HERRON, RN, CM
--- NOTE | 2020-12-12 15:55 | CASEMGMT ---
SW noted concerns with patient's care at home. Patient is drowsy and not fully waking up right now so SW is not able to talk with patient. SW called patient's . Introduced self and role at [facility]. SW asked him how things were going at home and if he was overwhelmed. He said things are fine at home. SW asked him about not knowing location of patient's medications. He said he gave the ED a list. He said patient normally takes her own medications. He said patient is normally independent. SW will attempt to talk with patient when she is able to talk. Pao Gutiérrez DRAINMAN DAVID
--- NOTE | 2020-12-12 17:19 | PN.HOSP_ITS ---
Subjective Subjective Patient is very sleepy upon my exam. She awakens and can tell me her name and birthday but falls asleep during questioning. I did discuss with nursing and they state that she was quite awake earlier this morning but maintains some confusion and was able to participate with therapy in the late afternoon but was fairly sleepy in the mid afternoon. Objective Data Objective Data Vital Signs: Vital Signs Temp Pulse Resp BP Pulse Ox 98.8 F 55 L 16 124/63 H 94 12/12/20 13:19 12/12/20 14:55 12/12/20 13:19 12/12/20 13:19 12/12/20 13:19 Oxygen Delivery Method Room Air Weight: 64.773 kg Body Mass Index (BMI) 25.5 Intake & Output: Intake and Output for Last 24 Hours 12/10/20 12/11/20 12/12/20 23:59 23:59 23:59 Intake Total 735 / 785 1335 / 1335 Output Total 100 / 100 Balance 735 / 785 1235 / 1235 Medical Nutrition Assessment Dietitian: Malnutrition Criteria Met Start: 12/12/20 12:21 Freq: Status: Active Protocol: Document 12/12/20 12:22 LES (Rec: 12/12/20 12:22 [facility] [id number]) Nutrition Malnutrition Evidence of Malnutrition Exists Yes Malnutrition (severe): Chronic Evidenced By Suboptimal Energy Intake ( Severe),Weight Loss (Severe) Clinical Problem Acute Disease or Injury Related Malnutrition Etiology related to acute illness and inability to consume adequate nutrition to meet estimated nutrition needs Signs/Symptoms as evidenced by 14% wt loss x 9 months and <50% of po intake in unknown time frame. Status Active Problem Recommendation Dietitian Recommendations/Changes Will liberalize diet to Regular No Added Salt d/t signs/symptoms of malnutrition Will provide 120 ml ensure compact w/ meals for increased nutrition if consumed. Lab / Micro Data Result Diagrams: 12/12/20 06:57 12/12/20 06:57 Labs: Laboratory Results - last 24 hr 12/11/20 16:26: Ethyl Alcohol 4.0 12/11/20 16:26: Procalcitonin 0.22 H 12/11/20 17:46: Urine Color Yellow, Urine Clarity Sl. Cloudy, Urine pH 5.0, Ur Specific [place] 1.020, Urine Protein 100 H, Urine Glucose (UA) Normal, Urine Ketones 15 H, Urine Occult Blood 25 H, Urine Nitrite Negative, Urine Bilirubin Negative, Urine Urobilinogen Normal, Ur Leukocyte Esterase Negative, Urine RBC 0 SEEN, Urine WBC 0 SEEN, Ur Squamous Epith Cells 0-5 SEEN, Amorphous Sediment 1+, Urine Bacteria 1+, Urine Mucus 0 SEEN 12/11/20 17:46: Urine Opiates Screen NEGATIVE, Urine Methadone Screen NEGATIVE, Ur Barbiturates Screen NEGATIVE, Ur Phencyclidine Scrn NEGATIVE, Ur Amphetamines Screen NEGATIVE, U Methamphetamin-MDMA POSITIVE H, U Benzodiazepines Scrn NEGATIVE, Urine Cocaine Screen NEGATIVE, U Cannabinoids Screen NEGATIVE, Ur Drug Screen Comment 12/11/20 23:30: D-Dimer Quant (PE/DVT) 1.93 H* 12/11/20 23:30: Magnesium 2.0, Ferritin 963 H, Lactate Dehydrogenase 226, Troponin I High Sens 222 H*, C-React Prot Ext Range 102.00 H 12/11/20 23:30: Ammonia < 10.0 L, B-Natriuretic Peptide 137.4 H 12/11/20 23:30: PT 13.8, INR 1.1, APTT 32.9 12/12/20 04:55: Troponin I High Sens 201 H* 12/12/20 06:50: APTT 184.8 H* 12/12/20 06:57: WBC 4.9, RBC 3.22 L, Hgb 9.9 L, Hct 31.1 L, MCV 96.6, MCH 30.7, MCHC 31.8 L D, RDW Std Deviation 51.5 H, RDW Coeff of Arik 14.6, Plt Count 119 L, MPV 12.2 H, Immature Gran % (Auto) 0.600, Neut % (Auto) 64.0, Lymph % (Auto) 24.4, [place] % (Auto) 9.6, Eos % (Auto) 1.2, Baso % (Auto) 0.2, Absolute Neuts (auto) 3.2, Absolute Lymphs (auto) 1.20, Nucleated RBC % 0 12/12/20 06:57: Sodium 139, Potassium 4.6, Chloride 110 H, Carbon Dioxide 20.0 L , Anion Gap 9, BUN 50 H, Creatinine 2.02 H, Estim Creat Clear Calc 18.45, Est GFR (MDRD) Af Amer 31 L, Est GFR (MDRD) Non-Af 25 L, BUN/Creatinine Ratio 24.8 H , Glucose 68 L, Calcium 8.6, Total Bilirubin 0.30, AST 37, ALT 13, Alkaline Phosphatase 66, Total Protein 6.9, Albumin 3.0 L, Globulin 3.9, Albumin/Globulin Ratio 0.8 L Micro: Microbiology 12/11/20 23:30 Mucosa - Nasopharyngeal Respiratory Panel (PCR) - Final 12/11/20 00:00 Urine, Clean Catch Legionella Antigen - Final 12/11/20 00:00 Urine, Clean Catch Streptococcus pneumoniae Antigen (M - Final 12/11/20 21:55 Interface Orders SARS-CoV-2 Antigen (Rapid) - Final SARS-CoV-2 (COVID 19) Radiography Diagnostic Testing: Radiology Impression Chest X-Ray 12/11/20 16:07 IMPRESSION: Mild patchy opacities in the left lateral lung could represent infection and/or edema. Electronically Signed: Davide Larios MD at 18:51 EDT Tel , Service support , Brain CT 12/11/20 18:12 IMPRESSION: No acute intracranial abnormality. Chronic involutional and ischemic changes of the brain. Electronically Signed: Davide Larios MD at 18:43 EDT Tel , Service support , Chest CT 12/11/20 19:17 IMPRESSION: Multifocal groundglass pulmonary opacities may be consistent with Covid pneumonia in the appropriate clinical setting. Electronically Signed: Avery Reynolds MD at 21:10 EDT Tel , Service support , Venous Doppler Study 12/12/20 23:59 Interpretation Summary No evidence for acute deep venous thrombosis bilateral lower extremities with patent and compressible bilateral great saphenous veins. Abbreviated COVID-19 protocol utilized Ordering Physician: Omaira Short Performed By: Nestor Cevallos, RVT Physical Exam Const no apparent distress Constitutional Narrative: Very sleepy elderly white female sitting up in bed with lunch tray in front of her but dozing off even during my conversation, able to answer what her name and birthdate are but otherwise very sleepy, appears co mfortable and nontoxic Exam Limitations: altered mental status Nutritional Appearance: overweight HEENT head/scalp atraumatic and moist oral mucous membranes Head and Scalp: normocephalic Resp normal respiratory effort, no retractions, no use of accessory muscles and clear to auscultation bilaterally Auscultation: Negative for crackles, rales, rhonchi or wheezes Cardio regular rate, regular rhythm, S1 normal heart sound, S2 normal heart sound, no murmurs, no rub, no gallops, no clicks and no JVD GI normal to inspection, nondistended, normoactive bowel sounds, soft to palpation, non-tender and non-distended; Negative for hepatosplenomegaly Extremity normal to inspection and no clubbing, cyanosis or edema Peripheral Pulses: Yes pulses 2+ throughout Skin no rashes or lesions noted, no wounds, skin turgor normal, no jaundice, no petechiae and no mottling Neuro Neuro Narrative: Very sleepy, spontaneously moves all extremities, no signs of focal deficits although exam difficult secondary to somnolence Assessment & Plan Assessment/Plan (1) Pneumonia due to COVID-19 virus: (2) Dehydration: (3) D-dimer, elevated: (4) Elevated troponin: (5) Metabolic encephalopathy: (6) Anemia: (7) Thrombocytopenia: PLAN: Acute bilateral pneumonia secondary to COVID-19 -Patient remains on room air -Inflammatory markers are elevated -No Decadron or remdesivir unless patient drops her oxygen saturations -Continue to monitor her from a respiratory standpoint -Patient was vaccinated -Cultures pending Metabolic encephalopathy -Suspect this is most likely related to above infection -Per family at baseline patient is able to be independent in her ADLs and is alert and oriented x3 -We will obtain an MRI tomorrow if confusion persists -Avoid sedatives -This appears to fluctuate throughout the day -Ammonia was within normal limits D-dimer elevation -Bilateral lower extremity Dopplers are negative for acute clot -We will discontinue heparin drip with stabilization of cardiac enzymes -Suspect that the elevation is related to her Covid infection Anemia/thrombocytopenia -Suspect some immediate be related to viral infection -Suspect some may be related to dilution -Stop heparin drip -No signs of acute bleeding -Repeat lab in a.m. SANAZ on CKD stage IIIb -Etiology unclear -Baseline creatinine is 2-2.5 -Current creatinine is 2 -Continue to monitor Elevated cardiac enzymes -Initial high-sensitivity troponin was 204 and trend was as follows--> 222-201 -We will repeat in a.m. -With history of coronary disease will recommend an echo as follow-up as an outpatient -Patient does not show any signs or symptoms of acute heart failure is not having active chest pain at this time -Discontinue heparin drip -Continue home goal-directed therapy CAD status post PCI/HTN/HPL -Continue aspirin, Plavix, statin, Coreg, ARB Gout -Continue home allopurinol GERD -Continue PPI DVT prophylaxis -Heparin Sq -SCD CODE STATUS -Full code Charges/Coding Visit Charges Inpatient E&M: 24189 Subs Hosp L2
[2020-12-12 19:53] LABS: Partial Thromboplast Time 90.8 Seconds (24.1-36.2)
[2020-12-12] MEDS: Losartan Potassium 100 MG Tablet PO (21:44)
[2020-12-12] MEDS: Atorvastatin Calcium 40 MG Tablet PO (21:44)
[2020-12-12] MEDS: Allopurinol 100 MG Tablet 200 MG PO (21:44)
[2020-12-12] MEDS: Heparin Injection (Vial) 5,000 UNIT/ML VIAL 5000 UNIT SC (23:33)
--- NOTE | 2020-12-12 23:59 | VDLE_ITS ---
Reason For Study: elevated D-Dimer RIGHT LEFT GSV is normal. GSV is normal. CFV is compressible. CFV is compressible. FV is compressible. FV is compressible. POP V is compressible. POP V is compressible. T/P Trunk is compressible. T/P Trunk is compressible. PTV is compressible. PTV is compressible. RT PerV is compressible. LT PerV is compressible. Procedure This is a venous duplex using B-mode, color flow and spectral Doppler. Exam performed portable in patient room. The exam was abbreviated due to the COVID 19 protocol. The exam was diagnostic. A preliminary report was called and/or faxed to PCU insulation cupola charger. VL/Venous Duplex US - Johann Extrem Interpretation Summary No evidence for acute deep venous thrombosis bilateral lower extremities with p atent and compressible bilateral great saphenous veins. Abbreviated COVID-19 protocol uti lized Ordering Physician: Omaira Short Performed By: Nestor Cevallos RVT
[2020-12-13] VITALS (13 sets, daily range): BP systolic 100–113; BP diastolic 50–69; PULSE 55–63; RESP 15–16; TEMP 36.4–37.2; O2SAT 93–99
[2020-12-13 05:46] LABS: Absolute Lymphocyte Count 1.35 X10^3/uL (0.83-4.51); Absolute Neutrophil Count 2.6 X10^3/uL (2.0-7.7); Basophil# 0.02 X10^3/uL; Basophil% 0.4 % (0-1); Eosinophil# 0.09 X10^3/uL; Hematocrit 29.8 % (37-47); Hemoglobin 9.5 g/dL (12.0-15.0); Lymphocyte # 1.35 X10^3/ul (0.83-4.51); Lymphocyte % 30.1 % (19-41); Mean Corp Hgb Conc 31.9 g/dL (32-36); Mean Corpuscular Hgb 30.7 pg (27.0-32.0); Mean Corpuscular Volume 96.4 fL (81-99); Mean Platelet Vol. 11.7 fl (6.2-12.0); Monocyte# 0.43 X10^3/uL; Monocyte% 9.6 % (0-10); NRBC Flagged by Analyzer 0 % (0-5); Neutrophil # 2.56 X10^3/uL (2.7-7.7); Platelet Count 125 K/mm3 (150-450); RBC Distribution Width CV 14.7 % (11.6-14.6); RBC Distribution Width SD 52.4 fl (35.1-43.9); Red Blood Count 3.09 M/mm3 (4.2-5.4); White Blood Count 4.5 K/mm3 (4.4-11.0)
[2020-12-13] MEDS: Heparin Injection (Vial) 5,000 UNIT/ML VIAL 5000 UNIT SC ×3 (06:10→21:42)
[2020-12-13 06:34] LABS: ALB/GLOB Ratio 0.7 RATIO (0.9-2.4); AST(SGOT) 42 U/L (15-37); Alanine Aminotransfer ALT/SGPT 13 U/L (13-56); Albumin, Serum 2.7 g/dL (3.2-5.0); Alkaline Phosphatase 62 U/L (45-117); Anion Gap 8 (5-15); BUN 53 mg/dL (7-18); BUN/Creat Ratio 24.9 RATIO (10-20); Calcium,Total 8.4 mg/dL (8.5-10.1); Chloride 113 mmol/L (98-107); Creatinine, Serum 2.13 mg/dL (0.55-1.02); EST Glomerular Filtration Rate 24 mL/min (>60); Est Glom Filt Rate - Afr Amer 29 mL/min (>60); Estimated Creatinine Clearance 17.49 ml/min; Glucose 92 mg/dL (74-106); Potassium 4.6 mmol/L (3.5-5.1); Protein, Total 6.7 g/dL (6.4-8.2); Sodium Level 140 mmol/L (136-145); Troponin-I HS 170 pg/mL (3.0-54.0)
[2020-12-13] MEDS: Calcitriol 0.25 MCG Capsule 0.5 MCG PO (09:20)
[2020-12-13] MEDS: Gabapentin 100 MG Capsule PO ×2 (09:20→21:41)
[2020-12-13] MEDS: buPROPion (XL) 300 MG TABLET.XL PO (09:20)
[2020-12-13] MEDS: amLODIPine 5 MG Tablet PO (09:20)
[2020-12-13] MEDS: Iron Polysaccharide Complex 150 MG CAPSULE PO (09:20)
[2020-12-13] MEDS: Pantoprazole Sodium 40 MG Tablet PO ×2 (09:20→21:41)
[2020-12-13] MEDS: Folic Acid 1 MG Tablet PO (09:21)
[2020-12-13] MEDS: Aspirin 81 MG TAB.CHEW PO (09:21)
[2020-12-13] MEDS: Clopidogrel Bisulfate 75 MG Tablet PO (09:21)
[2020-12-13] MEDS: Ferrous Sulfate 325 MG Tablet PO (09:21)
[2020-12-13] MEDS: Carvedilol 25 MG Tablet PO ×2 (09:21→21:41)
[2020-12-13] MEDS: Menthol/Lanolin/Calamine/Znox 113 GM Tube 1 APPLIC TOPICAL ×4 (09:21→21:42)
[2020-12-13] MEDS: Leflunomide 10 MG TABLET 20 MG PO (09:21)
--- NOTE | 2020-12-13 14:07 | PN.HOSP_ITS ---
Subjective Subjective Patient is currently sitting up in bed watching the [facility] [employer] game and feeding herself breakfast. She denies any current complaints. She remains mildly confused but mentation is improved and medically. Objective Data Objective Data Vital Signs: Vital Signs Temp Pulse Resp BP Pulse Ox 98.7 F 61 16 108/50 L 94 12/13/20 13:40 12/13/20 13:40 12/13/20 13:40 12/13/20 13:40 12/13/20 13:40 Oxygen Delivery Method Room Air Weight: 64.2 kg Body Mass Index (BMI) 25.5 Intake & Output: Intake and Output for Last 24 Hours 12/11/20 12/12/20 12/13/20 23:59 23:59 23:59 Intake Total 735 / 785 1622.37 / 1722.37 500 / 500 Output Total 400 / 600 1100 / 1100 Balance 735 / 785 1222.37 / 1122.37 -600 / -600 Medical Nutrition Assessment Dietitian: Malnutrition Criteria Met Start: 12/12/20 12:21 Freq: Status: Active Protocol: Document 12/12/20 12:22 LES (Rec: 12/12/20 12:22 [facility] [id number]) Nutrition Malnutrition Evidence of Malnutrition Exists Yes Malnutrition (severe): Chronic Evidenced By Suboptimal Energy Intake ( Severe),Weight Loss (Severe) Clinical Problem Acute Disease or Injury Related Malnutrition Etiology related to acute illness and inability to consume adequate nutrition to meet estimated nutrition needs Signs/Symptoms as evidenced by 14% wt loss x 9 months and <50% of po intake in unknown time frame. Status Active Problem Recommendation Dietitian Recommendations/Changes Will liberalize diet to Regular No Added Salt d/t signs/symptoms of malnutrition Will provide 120 ml ensure compact w/ meals for increased nutrition if consumed. Lab / Micro Data Result Diagrams: 12/13/20 05:35 12/13/20 05:35 Labs: Laboratory Results - last 24 hr 12/12/20 16:38: APTT 90.8 H* 12/13/20 05:35: WBC 4.5, RBC 3.09 L, Hgb 9.5 L, Hct 29.8 L, MCV 96.4, MCH 30.7, MCHC 31.9 L, RDW Std Deviation 52.4 H, RDW Coeff of Arik 14.7 H, Plt Count 125 L, MPV 11.7, Immature Gran % (Auto) 0.900, Neut % (Auto) 57.0, Lymph % (Auto) 30.1, [place] % (Auto) 9.6, Eos % (Auto) 2.0, Baso % (Auto) 0.4, Absolute Neuts (auto) 2.6, Absolute Lymphs (auto) 1.35, Nucleated RBC % 0 12/13/20 05:35: Sodium 140, Potassium 4.6, Chloride 113 H, Carbon Dioxide 19.0 L , Anion Gap 8, BUN 53 H, Creatinine 2.13 H, Estim Creat Clear Calc 17.49, Est GFR (MDRD) Af Amer 29 L, Est GFR (MDRD) Non-Af 24 L, BUN/Creatinine Ratio 24.9 H , Glucose 92, Calcium 8.4 L, Total Bilirubin 0.30, AST 42 H, ALT 13, Alkaline Phosphatase 62, Troponin I High Sens 170 H*, Total Protein 6.7, Albumin 2.7 L, Globulin 4.0, Albumin/Globulin Ratio 0.7 L Micro: Microbiology 12/11/20 23:30 Mucosa - Nasopharyngeal Respiratory Panel (PCR) - Final 12/11/20 00:00 Urine, Clean Catch Legionella Antigen - Final 12/11/20 00:00 Urine, Clean Catch Streptococcus pneumoniae Antigen (M - Final 12/11/20 21:55 Interface Orders SARS-CoV-2 Antigen (Rapid) - Final SARS-CoV-2 (COVID 19) Radiography Diagnostic Testing: Radiology Impression Venous Doppler Study 12/12/20 23:59 Interpretation Summary No evidence for acute deep venous thrombosis bilateral lower extremities with patent and compressible bilateral great saphenous veins. Abbreviated COVID-19 protocol utilized Ordering Physician: Omaira Short Performed By: Nestor Cevallos RVT Physical Exam Const no apparent distress Constitutional Narrative: Elderly white female sitting up in bed watching television and feeding herself lunch, appears comfortable, nontoxic, alert and oriented to self, place, she was off on month by 1 month only me it was December, but not marketing services vice president but was able to tell me it was fall Exam Limitations: no limitations Nutritional Appearance: overweight HEENT head/scalp atraumatic and moist oral mucous membranes HEENT Narrative: No thrush Head and Scalp: normocephalic Resp normal respiratory effort, no retractions, no use of accessory muscles and clear to auscultation bilaterally Auscultation: Negative for crackles, rales, rhonchi or wheezes Cardio regular rate, regular rhythm, S1 normal heart sound, S2 normal heart sound, no murmurs, no rub, no gallops, no clicks and no JVD GI normal to inspection, nondistended, normoactive bowel sounds, soft to palpation, non-tender and non-distended; Negative for hepatosplenomegaly Extremity normal to inspection and no clubbing, cyanosis or edema Peripheral Pulses: Yes pulses 2+ throughout Skin no rashes or lesions noted, no wounds, skin turgor normal, no jaundice, no petechiae and no mottling Neuro CN's II-XII intact bilaterally, moves all extremities and no focal motor defici ts Neuro Narrative: Mental status is much improved and she is alert and oriented as above Sensorium / Orientation: awake and alert Speech: speech normal Psych affect normal Assessment & Plan Assessment/Plan (1) Pneumonia due to COVID-19 virus: (2) Dehydration: (3) D-dimer, elevated: (4) Elevated troponin: (5) Metabolic encephalopathy: (6) Anemia: (7) Thrombocytopenia: PLAN: Acute bilateral pneumonia secondary to COVID-19 -Patient remains on room air with a sat of 93 to 96% on room air -Inflammatory markers are elevated -No Decadron or remdesivir unless patient drops her oxygen saturations -Respiratory viral PCR is negative -Continue to monitor her from a respiratory standpoint -Patient was vaccinated -All cultures remain pending Metabolic encephalopathy -Suspect this is most likely related to above infection -Per family at baseline patient is able to be independent in her ADLs and is alert and oriented x3 -Mentation appears to be improving -Avoid sedatives D-dimer elevation -Bilateral lower extremity Dopplers are negative for acute clot -We will discontinue heparin drip with stabilization of cardiac enzymes -Suspect that the elevation is related to her Covid infection Anemia/thrombocytopenia -Suspect some immediate be related to viral infection -Suspect some may be related to dilution -Stop heparin drip -No signs of acute bleeding -Repeat lab in a.m. SANAZ on CKD stage IIIb -Etiology unclear -Baseline creatinine is 2-2.5 -Current creatinine is 2 0.13 -Continue to monitor NSTEMI type II -Most likely type II NSTEMI related to above but patient does have risk factors and previous coronary disease -Initial high-sensitivity troponin was 204 and trend was as follows--> 222-201 -Repeat troponin on the a.m. of 12/13/2020 was 170 -With history of coronary disease will recommend an echo and possible outpatient stress test as follow-up -Patient does not show any signs or symptoms of acute heart failure is not having active chest pain at this time -Continue home goal-directed therapy CAD status post PCI/HTN/HPL -Continue aspirin, Plavix, statin, Coreg, ARB Gout -Continue home allopurinol GERD -Continue PPI DVT prophylaxis -Heparin Sq -SCD CODE STATUS -Full code Charges/Coding Visit Charges Inpatient E&M: 28784 Subs Hosp L2
--- NOTE | 2020-12-13 21:15 | CM.ED ---
BETHANY Note Referral Source: PCU SW Referral Reason: Concern by EMS regarding home situation Staff said that patient had been able to engage in conversation today.SW met with patient. Patient was asked how it is going at home and she said it's going. SW asked if patient is safe at home and she said yes. Patient was asked about medication and patient said I was getting it by myself but then that when by the wayside when I started feeling rotten and I had not had them sorted out for 2-3 days as I was not able to get out of bed. Patient said that her does not help with stuff. Patient was asked by the BSC being full and she said I had not emptied it. Patient said that when she was feeling sick I couldn't get out of bed.. I was in a daze. Patient said that her daughter came over and called the squad. Patient said I was ok till I found out I had covid. Patient said this is the first time I did not have the pills together. SW asked patient if her is a support and she said If I ask him ... but he gets sidetracked with my meds. Patient said I was pooped out when referencing her symptoms of COVID and why she was unable to get meds. Patient was asked if she feels like she is getting cared for appropriately at home and she said I could get better care. SW asked patient what she felt she needed at discharge and she said I don't know. SW advised that PCU SW will be available for patient to follow up with in regards to discharge planning. Plan: To be determined Alayna RICHARDSON
[2020-12-13] MEDS: Losartan Potassium 100 MG Tablet PO (21:41)
[2020-12-13] MEDS: Atorvastatin Calcium 40 MG Tablet PO (21:41)
[2020-12-13] MEDS: Allopurinol 100 MG Tablet 200 MG PO (21:41)
[2020-12-14] VITALS (11 sets, daily range): BP systolic 101–128; BP diastolic 55–76; PULSE 51–65; RESP 14–18; TEMP 36.1–36.7; O2SAT 94–97
[2020-12-14] MEDS: Heparin Injection (Vial) 5,000 UNIT/ML VIAL 5000 UNIT SC ×3 (06:09→20:50)
[2020-12-14 07:26] LABS: Absolute Lymphocyte Count 1.87 X10^3/uL (0.83-4.51); Absolute Neutrophil Count 2.7 X10^3/uL (2.0-7.7); Basophil# 0.01 X10^3/uL; Basophil% 0.2 % (0-1); Eosinophils% 3.8 % (0-5); Hematocrit 29.2 % (37-47); Hemoglobin 8.9 g/dL (12.0-15.0); Lymphocyte # 1.87 X10^3/ul (0.83-4.51); Lymphocyte % 35.1 % (19-41); Mean Corp Hgb Conc 30.5 g/dL (32-36); Mean Corpuscular Hgb 29.7 pg (27.0-32.0); Mean Corpuscular Volume 97.3 fL (81-99); Mean Platelet Vol. 11.9 fl (6.2-12.0); Monocyte# 0.51 X10^3/uL; Monocyte% 9.6 % (0-10); NRBC Flagged by Analyzer 0 % (0-5); Neutrophil # 2.69 X10^3/uL (2.7-7.7); Neutrophil % 50.4 % (47-70); Platelet Count 145 K/mm3 (150-450); RBC Distribution Width CV 14.8 % (11.6-14.6); White Blood Count 5.3 K/mm3 (4.4-11.0)
[2020-12-14 07:43] LABS: Anion Gap 7 (5-15); BUN 60 mg/dL (7-18); BUN/Creat Ratio 22.4 RATIO (10-20); Calcium,Total 8.6 mg/dL (8.5-10.1); Chloride 112 mmol/L (98-107); Creatinine, Serum 2.68 mg/dL (0.55-1.02); EST Glomerular Filtration Rate 18 mL/min (>60); Est Glom Filt Rate - Afr Amer 22 mL/min (>60); Glucose 91 mg/dL (74-106); Potassium 4.5 mmol/L (3.5-5.1); Sodium Level 140 mmol/L (136-145)
[2020-12-14] MEDS: Calcitriol 0.25 MCG Capsule 0.5 MCG PO (10:26)
[2020-12-14] MEDS: Folic Acid 1 MG Tablet PO (10:26)
[2020-12-14] MEDS: Carvedilol 25 MG Tablet PO ×2 (10:26→20:50)
[2020-12-14] MEDS: buPROPion (XL) 300 MG TABLET.XL PO (10:26)
[2020-12-14] MEDS: Ferrous Sulfate 325 MG Tablet PO (10:26)
[2020-12-14] MEDS: Pantoprazole Sodium 40 MG Tablet PO ×2 (10:26→20:50)
[2020-12-14] MEDS: amLODIPine 5 MG Tablet PO (10:26)
[2020-12-14] MEDS: Clopidogrel Bisulfate 75 MG Tablet PO (10:27)
[2020-12-14] MEDS: Aspirin 81 MG TAB.CHEW PO (10:27)
[2020-12-14] MEDS: Gabapentin 100 MG Capsule PO ×2 (10:27→20:50)
[2020-12-14] MEDS: Leflunomide 10 MG TABLET 20 MG PO (10:27)
[2020-12-14] MEDS: Iron Polysaccharide Complex 150 MG CAPSULE PO (10:27)
[2020-12-14] MEDS: Menthol/Lanolin/Calamine/Znox 113 GM Tube 1 APPLIC TOPICAL (13:57)
--- NOTE | 2020-12-14 14:19 | PN.HOSP_ITS ---
Subjective Subjective Patient is sitting up finishing lunch and watching television. Appears well at this time, nontoxic. Is much more awake and was alert and oriented x3 today. Answers were a bit slow but appropriate. Objective Data Objective Data Vital Signs: Vital Signs Temp Pulse Resp BP Pulse Ox 97.3 F L 58 L 14 111/55 L 94 12/14/20 13:59 12/14/20 13:59 12/14/20 13:59 12/14/20 13:59 12/14/20 13:59 Oxygen Delivery Method Room Air Weight: 64.2 kg Body Mass Index (BMI) 25.5 Intake & Output: Intake and Output for Last 24 Hours 12/12/20 12/13/20 12/14/20 23:59 23:59 23:59 Intake Total 1622.37 / 1722.37 860 / 860 600 / 600 Output Total 400 / 600 1250 / 1250 200 / 200 Balance 1222.37 / 1122.37 -390 / -390 400 / 400 Medical Nutrition Assessment Dietitian: Malnutrition Criteria Met Start: 12/12/20 12:21 Freq: Status: Active Protocol: Document 12/12/20 12:22 LES (Rec: 12/12/20 12:22 [facility] [id number]) Nutrition Malnutrition Evidence of Malnutrition Exists Yes Malnutrition (severe): Chronic Evidenced By Suboptimal Energy Intake ( Severe),Weight Loss (Severe) Clinical Problem Acute Disease or Injury Related Malnutrition Etiology related to acute illness and inability to consume adequate nutrition to meet estimated nutrition needs Signs/Symptoms as evidenced by 14% wt loss x 9 months and <50% of po intake in unknown time frame. Status Active Problem Recommendation Dietitian Recommendations/Changes Will liberalize diet to Regular No Added Salt d/t signs/symptoms of malnutrition Will provide 120 ml ensure compact w/ meals for increased nutrition if consumed. Lab / Micro Data Result Diagrams: 12/14/20 06:52 12/14/20 06:52 Labs: Laboratory Results - last 24 hr 12/14/20 06:52: WBC 5.3, RBC 3.00 L, Hgb 8.9 L, Hct 29.2 L, MCV 97.3, MCH 29.7, MCHC 30.5 L, RDW Std Deviation 53.0 H, RDW Coeff of Arik 14.8 H, Plt Count 145 L, MPV 11.9, Immature Gran % (Auto) 0.900, Neut % (Auto) 50.4, Lymph % (Auto) 35.1, [place] % (Auto) 9.6, Eos % (Auto) 3.8, Baso % (Auto) 0.2, Absolute Neuts (auto) 2.7, Absolute Lymphs (auto) 1.87, Nucleated RBC % 0 12/14/20 06:52: Sodium 140, Potassium 4.5, Chloride 112 H, Carbon Dioxide 21.0, Anion Gap 7, BUN 60 H, Creatinine 2.68 H, Estim Creat Clear Calc 13.90, Est GFR (MDRD) Af Amer 22 L, Est GFR (MDRD) Non-Af 18 L, BUN/Creatinine Ratio 22.4 H, Glucose 91, Calcium 8.6 Micro: Microbiology 12/11/20 17:58 Blood Culture (Wb) - Anticubital Left Blood Culture - Preliminary No growth in 48 hours. 12/11/20 16:26 Blood Culture (Wb) - Anticubital Right Blood Culture - Preliminary No growth in 48 hours. 12/11/20 23:30 Mucosa - Nasopharyngeal Respiratory Panel (PCR) - Final 12/11/20 00:00 Urine, Clean Catch Legionella Antigen - Final 12/11/20 00:00 Urine, Clean Catch Streptococcus pneumoniae Antigen (M - Final 12/11/20 21:55 Interface Orders SARS-CoV-2 Antigen (Rapid) - Final SARS-CoV-2 (COVID 19) Physical Exam Const no apparent distress Constitutional Narrative: Elderly white female sitting up in bed watching television and is just finished lunch, appears comfortable, nontoxic, alert and oriented x3, response time is slightly delayed with some things but overall patient is much improved Exam Limitations: no limitations Nutritional Appearance: overweight HEENT head/scalp atraumatic and moist oral mucous membranes HEENT Narrative: No thrush Head and Scalp: normocephalic Resp normal respiratory effort, no retractions, no use of accessory muscles and clear to auscultation bilaterally Auscultation: Negative for crackles, rales, rhonchi or wheezes Cardio regular rate, regular rhythm, S1 normal heart sound, S2 normal heart sound, no murmurs, no rub, no gallops, no clicks and no JVD GI normal to inspection, nondistended, normoactive bowel sounds, soft to palpation, non-tender and non-distended; Negative for hepatosplenomegaly Extremity normal to inspection and no clubbing, cyanosis or edema Skin Skin Narrative: Superficial skin erosion under left breast currently covered in cream so difficult to ascertain what the base looks like Neuro CN's II-XII intact bilaterally, moves all extremities and no focal motor deficits Neuro Narrative: Mental status is much improved and she is alert and oriented as above Sensorium / Orientation: awake and alert Speech: speech normal Psych affect normal Assessment & Plan Assessment/Plan (1) Pneumonia due to COVID-19 virus: (2) Dehydration: (3) D-dimer, elevated: (4) Elevated troponin: (5) Metabolic encephalopathy: (6) Anemia: (7) Thrombocytopenia: PLAN: Acute bilateral pneumonia secondary to COVID-19 -Patient remains on room air with a sat of 94-97 % on room air -Inflammatory markers are elevated -No Decadron or remdesivir unless patient drops her oxygen saturations -Respiratory viral PCR is negative -Continue to monitor her from a respiratory standpoint -Patient was vaccinated -Blood cultures are negative at 48 hours Metabolic encephalopathy -Suspect this is most likely related to above infection -Per family at baseline patient is able to be independent in her ADLs and is alert and oriented x3 -Patient was alert and oriented x3 today, response times on some data was still a little bit slower than anticipated but much improved overall -Avoid sedatives D-dimer elevation -Bilateral lower extremity Dopplers are negative for acute clot -We will discontinue heparin drip with stabilization of cardiac enzymes -Suspect that the elevation is related to her Covid infection Anemia/thrombocytopenia -Suspect some immediate be related to viral infection -Platelet counts are stable -Hemoglobin is relatively stable -No signs of acute bleeding -Repeat lab in a.m. SANAZ on CKD stage IIIb -Etiology unclear -Baseline creatinine is 2-2.5 -Current creatinine is 2.68 -With slight elevation we will give 500 cc of fluid and have really encouraged oral intake of liquids -Repeat BMP in a.m. -If continues to trend up may need to consider discontinuing losartan but overall has been relatively stable during her hospitalization -Continue to monitor NSTEMI type II -Most likely type II NSTEMI related to above but patient does have risk factors and previous coronary disease -Initial high-sensitivity troponin was 204 and trend was as follows--> 222-201 -Repeat troponin on the a.m. of 12/13/2020 was 170 -With history of coronary disease will recommend an echo and possible outpatient stress test as follow-up -Patient does not show any signs or symptoms of acute heart failure is not having active chest pain at this time -Continue home goal-directed therapy CAD status post PCI/HTN/HPL -Continue aspirin, Plavix, statin, Coreg, ARB Gout -Continue home allopurinol GERD -Continue PPI DVT prophylaxis -Heparin Sq -SCD CODE STATUS -Full code Charges/Coding Visit Charges Inpatient E&M: 20453 Subs Hosp L2
[2020-12-14] MEDS: Atorvastatin Calcium 40 MG Tablet PO (20:49)
[2020-12-14] MEDS: Allopurinol 100 MG Tablet 200 MG PO (20:50)
[2020-12-14] MEDS: Losartan Potassium 100 MG Tablet PO (20:50)
--- NOTE | 2020-12-14 21:41 | NURSING ---
according to , daughter Domi is allowed information on pt. Duron's number is [phone].
[2020-12-15] VITALS (7 sets, daily range): BP systolic 102–134; BP diastolic 55–68; PULSE 58–71; RESP 18; TEMP 36.2–36.8; O2SAT 93–97
[2020-12-15] MEDS: Heparin Injection (Vial) 5,000 UNIT/ML VIAL 5000 UNIT SC ×2 (05:35→15:05)
[2020-12-15 07:35] LABS: Absolute Lymphocyte Count 1.61 X10^3/uL (0.83-4.51); Absolute Neutrophil Count 3.5 X10^3/uL (2.0-7.7); Basophil# 0.02 X10^3/uL; Basophil% 0.3 % (0-1); Eosinophil# 0.25 X10^3/uL; Eosinophils% 4.2 % (0-5); Hematocrit 26.5 % (37-47); Hemoglobin 8.4 g/dL (12.0-15.0); Lymphocyte # 1.61 X10^3/ul (0.83-4.51); Lymphocyte % 27.2 % (19-41); Mean Corp Hgb Conc 31.7 g/dL (32-36); Mean Corpuscular Hgb 30.5 pg (27.0-32.0); Mean Corpuscular Volume 96.4 fL (81-99); Mean Platelet Vol. 11.8 fl (6.2-12.0); Monocyte# 0.51 X10^3/uL; Monocyte% 8.6 % (0-10); NRBC Flagged by Analyzer 0 % (0-5); Neutrophil # 3.45 X10^3/uL (2.7-7.7); Neutrophil % 58.5 % (47-70); Platelet Count 146 K/mm3 (150-450); RBC Distribution Width CV 14.8 % (11.6-14.6); RBC Distribution Width SD 52.2 fl (35.1-43.9); Red Blood Count 2.75 M/mm3 (4.2-5.4); White Blood Count 5.9 K/mm3 (4.4-11.0)
[2020-12-15 08:12] LABS: Anion Gap 9 (5-15); BUN 59 mg/dL (7-18); BUN/Creat Ratio 23.1 RATIO (10-20); Calcium,Total 8.5 mg/dL (8.5-10.1); Chloride 111 mmol/L (98-107); Creatinine, Serum 2.55 mg/dL (0.55-1.02); EST Glomerular Filtration Rate 19 mL/min (>60); Est Glom Filt Rate - Afr Amer 23 mL/min (>60); Estimated Creatinine Clearance 14.61 ml/min; Glucose 86 mg/dL (74-106); Potassium 4.7 mmol/L (3.5-5.1); Sodium Level 139 mmol/L (136-145)
[2020-12-15] MEDS: Ferrous Sulfate 325 MG Tablet PO (10:04)
[2020-12-15] MEDS: Iron Polysaccharide Complex 150 MG CAPSULE PO (10:04)
[2020-12-15] MEDS: Folic Acid 1 MG Tablet PO (10:04)
[2020-12-15] MEDS: Gabapentin 100 MG Capsule PO (10:04)
[2020-12-15] MEDS: Clopidogrel Bisulfate 75 MG Tablet PO (10:04)
[2020-12-15] MEDS: Pantoprazole Sodium 40 MG Tablet PO (10:04)
[2020-12-15] MEDS: buPROPion (XL) 300 MG TABLET.XL PO (10:04)
[2020-12-15] MEDS: Leflunomide 10 MG TABLET 20 MG PO (10:04)
[2020-12-15] MEDS: Carvedilol 25 MG Tablet PO (10:04)
[2020-12-15] MEDS: amLODIPine 5 MG Tablet PO (10:04)
[2020-12-15] MEDS: Calcitriol 0.25 MCG Capsule 0.5 MCG PO (10:05)
[2020-12-15] MEDS: Aspirin 81 MG TAB.CHEW PO (10:05)
--- NOTE | 2020-12-15 15:20 | DCINST_ITS ---
Discharge Instructions Diet Discharge Diet: No restrictions Activity Discharge Activity: Return to Normal Activity Follow Up Care Test Results: Test results from this visit will be discussed in further detail at your follow-up appointment, if applicable. Discharge Plan Admission Admit Date/Time: 12/11/20 22:36 Primary Reason for Your Visit: Acute metabolic encephalopathy Attending Provider: Elvira Prakash Primary Care Provider: Evangelina Reddy NP Instructions Additional Instructions / Restrictions: Continue to quarantine for total of 10 days from start of symptoms. Continue to keep yourself hydrated. Continue to check your oxygen levels with a pulse oximeter which you can buy [id number] from a drug store. You need repeat blood work within 2 weeks with your primary care doctor. Discharge Orders/Prescriptions Prescriptions: Continued nitroglycerin 0.4 mg tablet, sublingual 0.4 mg SUBLINGUAL Q5M PRN (Reason: cp) RF: 0 allopurinol 100 MG tablet 200 mg PO QHS RF: 0 omeprazole 40 MG capsule 40 mg PO BID RF: 0 gabapentin 100 MG capsule 100 mg PO BID RF: 0 bupropion HCl 300 MG tablet extended release 24 hr 300 mg PO DAILY RF: 0 folic acid 0.8 MG tablet 800 mcg PO DAILY@0800 RF: 0 losartan 100 MG tablet 100 mg PO QHS RF: 0 polysaccharide iron complex 150 MG capsule 150 mg PO DAILYCM RF: 0 atorvastatin 40 MG tablet 40 mg PO DAILY RF: 0 carvedilol 25 MG tablet 25 mg PO BID RF: 0 clopidogrel 75 mg tablet 75 mg PO DAILY Qty: 0 RF: 0 amlodipine 5 mg tablet 5 mg PO DAILY RF: 0 leflunomide 20 mg Tablet 20 mg PO DAILY RF: 0 calcitriol 0.5 mcg Capsule 0.5 mcg PO DAILY RF: 0 aspirin 81 mg Tablet 81 mg PO DAILY RF: 0 ergocalciferol (vitamin D2) 1,250 mcg (50,000 unit) Capsule 1,250 mcg PO QWEEK RF: 0 ferrous sulfate 325 mg (65 mg iron) Tablet,Delayed Release (Dr/Ec) 325 mg PO DAILY RF: 0 Discontinued zolpidem 5 MG tablet 5 mg PO QHS PRN (Reason: Insomnia) RF: 0 valsartan 160 mg Tablet 160 mg PO DAILY RF: 0 Referrals / Follow Up: Evangelina Reddy NP, [employer] [Primary Care Provider] - Within 2 Weeks Disposition Disposition (needs filled in before D/C Order can be placed): Home Health Service
--- NOTE | 2020-12-15 15:40 | PCM.DC.SUM ---
Providers Date of Admission: 12/11/20 Date of Discharge: 12/15/20 Primary Care Physician: Evangelina Reddy, JESUS Reason For Visit: BL PNA, SUSPECT COVID, ELEVATED TROP, ENCEPHALOPAT Diagnosis Discharge Diagnosis (1) Pneumonia due to COVID-19 virus: Status: Acute Code(s): U07.1 - COVID-19; J12.82 - Pneumonia due to coronavirus disease 2019 (2) Dehydration: Status: Resolved Code(s): E86.0 - Dehydration (3) D-dimer, elevated: Status: Acute Code(s): R79.89 - Other specified abnormal findings of blood chemistry (4) Elevated troponin: Status: Acute Code(s): R77.8 - Other specified abnormalities of plasma proteins (5) Metabolic encephalopathy: Status: Resolved Code(s): G93.41 - Metabolic encephalopathy (6) Anemia: Status: Chronic Code(s): D64.9 - Anemia, unspecified (7) Thrombocytopenia: Status: Chronic Code(s): D69.6 - Thrombocytopenia, unspecified (8) Severe malnutrition: Status: Chronic Code(s): E43 - Unspecified severe protein-calorie malnutrition Medications at Discharge Home Medications allopurinol 200 mg PO QHS 11/06/15 bupropion HCl 300 mg PO DAILY 11/06/15 gabapentin 100 mg PO BID 11/06/15 omeprazole 40 mg PO BID 11/06/15 folic acid 800 mcg PO DAILY@0800 05/17/16 losartan 100 mg PO QHS 11/15/17 polysaccharide iron complex 150 mg PO DAILYCM 11/15/17 atorvastatin 40 mg PO DAILY 05/03/19 carvedilol 25 mg PO BID 05/03/19 nitroglycerin 0.4 mg sublingual tablet 0.4 mg SUBLINGUAL Q5M PRN 01/31/20 clopidogrel 75 mg PO DAILY #0 03/11/20 amlodipine 5 mg PO DAILY 12/11/20 aspirin 81 mg PO DAILY 12/11/20 calcitriol 0.5 mcg PO DAILY 12/11/20 ergocalciferol (vitamin D2) 1,250 mcg PO QWEEK 12/11/20 ferrous sulfate 325 mg PO DAILY 12/11/20 leflunomide 20 mg PO DAILY 12/11/20 Hospital Course Operations None Procedures None Summary of Care Provided Minutes Spent on Discharge: 45 Hospital Course: 75 y/o with multiple comorbidities who presents with generalized malaise and confusion. Patient has received a COVID-19 vaccine. Patient was found to have COVID-19 infection. Admitting blood work was relatively stable. Her chest x-ray showed mild patchy opacity in the left lateral lung. CT of the chest showed multifocal groundglass pulmonary opacities. Patient was not on oxygen. She remained off oxygen. She was admitted and monitored for acute metabolic encephalopathy. Her troponin was elevated at 201. His troponin decreased to 170. She was monitored overnight with no issues. She did not need oxygen. She was discharged home to her . was called and updated on the day of discharge. She will will be followed with home health for PT/OT Physical Exam Narrative Physical exam: General: Alert, Oriented x3, Cooperative, No apparent distress, Well developed HEENT: Atraumatic Oral: Moist Mucosa Neck: Supple Lungs: Clear to auscultation Cardiovascular: HS I+II, regular, no murmurs Abdomen: Bowel Sounds Present, Soft, Non Tender Extremities: No edema Medical Records Data Medical Nutrition Assessment Dietitian: Malnutrition Criteria Met Start: 12/12/20 12:21 Freq: Status: Active Protocol: Document 12/12/20 12:22 LES (Rec: 12/12/20 12:22 [facility] [id number]) Nutrition Malnutrition Evidence of Malnutrition Exists Yes Malnutrition (severe): Chronic Evidenced By Suboptimal Energy Intake ( Severe),Weight Loss (Severe) Clinical Problem Acute Disease or Injury Related Malnutrition Etiology related to acute illness and inability to consume adequate nutrition to meet estimated nutrition needs Signs/Symptoms as evidenced by 14% wt loss x 9 months and <50% of po intake in unknown time frame. Status Active Problem Recommendation Dietitian Recommendations/Changes Will liberalize diet to Regular No Added Salt d/t signs/symptoms of malnutrition Will provide 120 ml ensure compact w/ meals for increased nutrition if consumed. Weight / BMI Weight Weight: 66.4 kg Body Mass Index (BMI) 25.5 ABG / Lab / Microbiology Data Result Diagrams: 12/15/20 06:37 12/15/20 06:37 Laboratory: Laboratory Results - last 24 hr 12/15/20 06:37: WBC 5.9, RBC 2.75 L, Hgb 8.4 L, Hct 26.5 L, MCV 96.4, MCH 30.5, MCHC 31.7 L, RDW Std Deviation 52.2 H, RDW Coeff of Arik 14.8 H, Plt Count 146 L, MPV 11.8, Immature Gran % (Auto) 1.200 H, Neut % (Auto) 58.5, Lymph % (Auto) 27.2, [place] % (Auto) 8.6, Eos % (Auto) 4.2, Baso % (Auto) 0.3, Absolute Neuts (auto) 3.5, Absolute Lymphs (auto) 1.61, Nucleated RBC % 0 12/15/20 06:37: Sodium 139, Potassium 4.7, Chloride 111 H, Carbon Dioxide 19.0 L, Anion Gap 9, BUN 59 H, Creatinine 2.55 H, Estim Creat Clear Calc 14.61, Est GFR (MDRD) Af Amer 23 L, Est GFR (MDRD) Non-Af 19 L, BUN/Creatinine Ratio 23.1 H, Glucose 86, Calcium 8.5 Microbiology: Microbiology 12/11/20 17:58 Blood Culture (Wb) - Anticubital Left Blood Culture - Preliminary No growth in 48 hours. 12/11/20 16:26 Blood Culture (Wb) - Anticubital Right Blood Culture - Preliminary No growth in 48 hours. 12/11/20 23:30 Mucosa - Nasopharyngeal Respiratory Panel (PCR) - Final 12/11/20 00:00 Urine, Clean Catch Legionella Antigen - Final 12/11/20 00:00 Urine, Clean Catch Streptococcus pneumoniae Antigen (M - Final 12/11/20 21:55 Interface Orders SARS-CoV-2 Antigen (Rapid) - Final SARS-CoV-2 (COVID 19) D/C Instructions Discharge Diet: No restrictions Meaningful Use Info Meaningful Use Diagnoses (Choose all that apply): None applicable Discharge Plan Admission Admit Date/Time: 12/11/20 22:36 Primary Reason for Your Visit: Acute metabolic encephalopathy Attending Provider: Elvira Prakash Primary Care Provider: Evangelina Reddy NP Instructions Additional Instructions / Restrictions: Continue to quarantine for total of 10 days from start of symptoms. Continue to keep yourself hydrated. Continue to check your oxygen levels with a pulse oximeter which you can buy [id number] from a drug store. You need repeat blood work within 2 weeks with your primary care doctor. Discharge Orders/Prescriptions Prescriptions: Continued nitroglycerin 0.4 mg tablet, sublingual 0.4 mg SUBLINGUAL Q5M PRN (Reason: cp) RF: 0 allopurinol 100 MG tablet 200 mg PO QHS RF: 0 omeprazole 40 MG capsule 40 mg PO BID RF: 0 gabapentin 100 MG capsule 100 mg PO BID RF: 0 bupropion HCl 300 MG tablet extended release 24 hr 300 mg PO DAILY RF: 0 folic acid 0.8 MG tablet 800 mcg PO DAILY@0800 RF: 0 losartan 100 MG tablet 100 mg PO QHS RF: 0 polysaccharide iron complex 150 MG capsule 150 mg PO DAILYCM RF: 0 atorvastatin 40 MG tablet 40 mg PO DAILY RF: 0 carvedilol 25 MG tablet 25 mg PO BID RF: 0 clopidogrel 75 mg tablet 75 mg PO DAILY Qty: 0 RF: 0 amlodipine 5 mg tablet 5 mg PO DAILY RF: 0 leflunomide 20 mg Tablet 20 mg PO DAILY RF: 0 calcitriol 0.5 mcg Capsule 0.5 mcg PO DAILY RF: 0 aspirin 81 mg Tablet 81 mg PO DAILY RF: 0 ergocalciferol (vitamin D2) 1,250 mcg (50,000 unit) Capsule 1,250 mcg PO QWEEK RF: 0 ferrous sulfate 325 mg (65 mg iron) Tablet,Delayed Release (Dr/Ec) 325 mg PO DAILY RF: 0 Discontinued zolpidem 5 MG tablet 5 mg PO QHS PRN (Reason: Insomnia) RF: 0 valsartan 160 mg Tablet 160 mg PO DAILY RF: 0 Referrals / Follow Up: Evangelina Reddy NP, SCOOPER-C [Primary Care Provider] - 12/25/20 11:30 am Disposition Disposition (needs filled in before D/C Order can be placed): Home Health Service
--- NOTE | 2020-12-15 15:46 | CASEMGMT ---
Addendum entered by Ariane Veloz 12/15/20 15:55: Per Lin at [facility], they can accept pt. Lety KERR CM Original Note: Pt/ agreeable to [facility], PT/OT and preference is for [facility]. Order placed and referral made. CM to follow. Per Chad KERR, pt does not qualify for home oxygen at discharge. Lety KERR CM
--- NOTE | 2020-12-16 15:15 | CASEMGMT ---
Addendum entered by Ariane Benitez 12/16/20 15:53: Return call to patient. Patient states that she has felt tired but doing okay. Has not heard from yet- [facility] number provided to patient to f/u with to see when HH plans to visit. VANESSA Daley Original Note: VANESSA SALAS F/u Call: DC Date: 12/15/2020 DC Diagnosis: Covid PNA DC Disposition: Home with [facility] PT/OT Lace/Strata: 01/23 Called patient listed number on demographics, received VM that identified correct patient. 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 VANESSA Daley
== END 2020-12-15 17:23 | disposition home health service (06) | DRG 177 ==
LOC: ED 20:35 → PCU 21:54
PROVIDERS: Internal Medicine; Admitting Provider Family Medicine; Emergency Provider Emergency Medicine; PCP Nurse Practitioner Primary Care; Visit Provider Internal Medicine
DX: U07.1 COVID-19 (principal); J12.82 Pneumonia due to coronavirus disease 2019; G93.41 Metabolic encephalopathy; E43 Unspecified severe protein-calorie malnutrition; N17.9 Acute kidney failure, unspecified; E86.0 Dehydration; D64.9 Anemia, unspecified; D69.6 Thrombocytopenia, unspecified; I25.10 Atherosclerotic heart disease of native coronary artery without angina pectoris; E78.5 Hyperlipidemia, unspecified; D50.9 Iron deficiency anemia, unspecified; I12.9 Hypertensive chronic kidney disease with stage 1 through stage 4 chronic kidney disease, or unspecified chronic kidney disease; N18.32 Chronic kidney disease, stage 3b; I44.4 Left anterior fascicular block; D63.1 Anemia in chronic kidney disease; M10.9 Gout, unspecified; K21.9 Gastro-esophageal reflux disease without esophagitis; R79.1 Abnormal coagulation profile; R77.8 Other specified abnormalities of plasma proteins; Z95.5 Presence of coronary angioplasty implant and graft; Z79.02 Long term (current) use of antithrombotics/antiplatelets; Z79.82 Long term (current) use of aspirin; Z79.899 Other long term (current) drug therapy
CPT/HCPCS: 36415; 70450; 71045; 71250; 80048; 80053; 80307; 81001; 82077; 82140; 82728; 83605; 83615; 83735; 83880; 84145; 84484; 85025; 85379; 85610; 85730; 86140; 87040; 87426; 87449; 87633; 93005; 93970; 97110; 97162; 97165; 97530; 99251; 99285; J7030; J7040; P9612; A4216; G0463

== ENCOUNTER 2021-05-01 15:07 | Outpatient (CLI) | payer MEDICARE, OTHER, SELFPAY ==
[2021-05-01 17:33] LABS: Absolute Lymphocyte Count 2.65 X10^3/uL (0.83-4.51); Absolute Neutrophil Count 3.5 X10^3/uL (2.0-7.7); Basophil# 0.05 X10^3/uL; Basophil% 0.7 % (0-1); Eosinophil# 0.57 X10^3/uL; Eosinophils% 7.9 % (0-5); Hematocrit 31.6 % (37-47); Hemoglobin 10.3 g/dL (12.0-15.0); Lymphocyte # 2.65 X10^3/ul (0.83-4.51); Lymphocyte % 36.6 % (19-41); Mean Corp Hgb Conc 32.6 g/dL (32-36); Mean Corpuscular Hgb 31.5 pg (27.0-32.0); Mean Corpuscular Volume 96.6 fL (81-99); Mean Platelet Vol. 10.8 fl (6.2-12.0); Monocyte# 0.48 X10^3/uL; Monocyte% 6.6 % (0-10); NRBC Flagged by Analyzer 0 % (0-5); Neutrophil # 3.46 X10^3/uL (2.7-7.7); Neutrophil % 47.6 % (47-70); Platelet Count 198 K/mm3 (150-450); RBC Distribution Width CV 15.7 % (11.6-14.6); RBC Distribution Width SD 55.9 fl (35.1-43.9); Red Blood Count 3.27 M/mm3 (4.2-5.4); White Blood Count 7.3 K/mm3 (4.4-11.0)
[2021-05-01 18:00] LABS: AST(SGOT) 25 U/L (15-37); Alanine Aminotransfer ALT/SGPT 21 U/L (13-56); Albumin, Serum 3.8 g/dL (3.2-5.0); Alkaline Phosphatase 95 U/L (45-117); Anion Gap 5 (5-15); BUN 45 mg/dL (7-18); BUN/Creat Ratio 16.7 RATIO (10-20); Calcium,Total 9.2 mg/dL (8.5-10.1); Chloride 111 mmol/L (98-107); Creatinine, Serum 2.69 mg/dL (0.55-1.02); EST Glomerular Filtration Rate 18 mL/min (>60); Est Glom Filt Rate - Afr Amer 22 mL/min (>60); Globulin 3.8 g/dL (2.2-4.2); Glucose 94 mg/dL (74-106); Potassium 5.5 mmol/L (3.5-5.1); Protein, Total 7.6 g/dL (6.4-8.2); Sodium Level 138 mmol/L (136-145)
== END 2021-05-01 23:59 | disposition home or self-care (01) ==
LOC: MTLAB 15:10
PROVIDERS: PCP Nurse Practitioner Primary Care; Referring Provider Internal Medicine Rheumatology; Visit Provider Internal Medicine Rheumatology
DX: M06.4 Inflammatory polyarthropathy (principal); M10.00 Idiopathic gout, unspecified site; M16.11 Unilateral primary osteoarthritis, right hip; M17.0 Bilateral primary osteoarthritis of knee; M51.37 Other intervertebral disc degeneration, lumbosacral region; N18.9 Chronic kidney disease, unspecified; I12.9 Hypertensive chronic kidney disease with stage 1 through stage 4 chronic kidney disease, or unspecified chronic kidney disease; M48.061 Spinal stenosis, lumbar region without neurogenic claudication; M48.02 Spinal stenosis, cervical region; I25.10 Atherosclerotic heart disease of native coronary artery without angina pectoris; Z79.899 Other long term (current) drug therapy
CPT/HCPCS: 36415; 80053; 85025

== ENCOUNTER → 2021-07-31 | Outpatient (CLI) | payer MEDICARE, OTHER, SELFPAY ==
[2021-07-31 15:19] LABS: Absolute Lymphocyte Count 2.41 X10^3/uL (0.83-4.51); Absolute Neutrophil Count 4.6 X10^3/uL (2.0-7.7); Basophil# 0.07 X10^3/uL; Basophil% 0.9 % (0-1); Eosinophil# 0.33 X10^3/uL; Eosinophils% 4.1 % (0-5); Hematocrit 30.8 % (37-47); Hemoglobin 9.9 g/dL (12.0-15.0); Lymphocyte # 2.41 X10^3/ul (0.83-4.51); Lymphocyte % 30.2 % (19-41); Mean Corp Hgb Conc 32.1 g/dL (32-36); Mean Corpuscular Hgb 30.7 pg (27.0-32.0); Mean Corpuscular Volume 95.7 fL (81-99); Mean Platelet Vol. 11.8 fl (6.2-12.0); Monocyte# 0.59 X10^3/uL; Monocyte% 7.4 % (0-10); NRBC Flagged by Analyzer 0 % (0-5); Neutrophil # 4.55 X10^3/uL (2.7-7.7); Platelet Count 187 K/mm3 (150-450); RBC Distribution Width CV 15.6 % (11.6-14.6); RBC Distribution Width SD 54.4 fl (35.1-43.9); Red Blood Count 3.22 M/mm3 (4.2-5.4)
[2021-07-31 16:02] LABS: AST(SGOT) 31 U/L (15-37); Alanine Aminotransfer ALT/SGPT 18 U/L (13-56); Albumin, Serum 3.9 g/dL (3.2-5.0); Alkaline Phosphatase 85 U/L (45-117); Anion Gap 7 (5-15); BUN 40 mg/dL (7-18); BUN/Creat Ratio 17.2 RATIO (10-20); Calcium,Total 9.6 mg/dL (8.5-10.1); Chloride 109 mmol/L (98-107); Creatinine, Serum 2.32 mg/dL (0.55-1.02); EST Glomerular Filtration Rate 22 mL/min (>60); Est Glom Filt Rate - Afr Amer 26 mL/min (>60); Globulin 3.8 g/dL (2.2-4.2); Glucose 88 mg/dL (74-106); Potassium 4.7 mmol/L (3.5-5.1); Protein, Total 7.7 g/dL (6.4-8.2); Sodium Level 139 mmol/L (136-145); Uric Acid 4.2 mg/dL (2.6-6.0)
== END | disposition home or self-care (01) ==
PROVIDERS: PCP Nurse Practitioner Primary Care; Referring Provider Internal Medicine Rheumatology; Visit Provider Internal Medicine Rheumatology
DX: M06.4 Inflammatory polyarthropathy (principal); M10.00 Idiopathic gout, unspecified site; M16.11 Unilateral primary osteoarthritis, right hip; M17.0 Bilateral primary osteoarthritis of knee; M51.37 Other intervertebral disc degeneration, lumbosacral region; I12.9 Hypertensive chronic kidney disease with stage 1 through stage 4 chronic kidney disease, or unspecified chronic kidney disease; N18.9 Chronic kidney disease, unspecified; M48.061 Spinal stenosis, lumbar region without neurogenic claudication; M48.02 Spinal stenosis, cervical region; I25.10 Atherosclerotic heart disease of native coronary artery without angina pectoris; Z95.5 Presence of coronary angioplasty implant and graft; Z79.899 Other long term (current) drug therapy
CPT/HCPCS: 36415; 80053; 84550; 85025

== ENCOUNTER → 2022-01-19 | Outpatient (CLI) | payer MEDICARE, SELFPAY ==
[2022-01-19 17:54] LABS: Absolute Lymphocyte Count 1.92 X10^3/uL (0.83-4.51); Absolute Neutrophil Count 3.5 X10^3/uL (2.0-7.7); Basophil# 0.05 X10^3/uL; Basophil% 0.8 % (0-1); Eosinophils% 4.7 % (0-5); Hematocrit 31.9 % (37-47); Hemoglobin 10.2 g/dL (12.0-15.0); Lymphocyte # 1.92 X10^3/ul (0.83-4.51); Lymphocyte % 30.1 % (19-41); Mean Corpuscular Hgb 32.6 pg (27.0-32.0); Mean Corpuscular Volume 101.9 fL (81-99); Mean Platelet Vol. 10.3 fl (6.2-12.0); Monocyte# 0.52 X10^3/uL; Monocyte% 8.2 % (0-10); NRBC Flagged by Analyzer 0 % (0-5); Neutrophil % 54.8 % (47-70); POSITIVE MORPHOLOGY YES; Platelet Count 176 K/mm3 (150-450); RBC Distribution Width CV 18.5 % (11.6-14.6); RBC Distribution Width SD 68.2 fl (35.1-43.9); Red Blood Count 3.13 M/mm3 (4.2-5.4); White Blood Count 6.4 K/mm3 (4.4-11.0)
[2022-01-19 18:10] LABS: Differential Indicated SCAN CRITERIA MET
[2022-01-19 18:20] LABS: ALB/GLOB Ratio 1.3 RATIO (0.9-2.4); AST(SGOT) 24 U/L (15-37); Alanine Aminotransfer ALT/SGPT 17 U/L (13-56); Albumin, Serum 3.6 g/dL (3.2-5.0); Alkaline Phosphatase 81 U/L (45-117); Anion Gap 10 (5-15); BUN 26 mg/dL (7-18); BUN/Creat Ratio 12.1 RATIO (10-20); Calcium,Total 8.7 mg/dL (8.5-10.1); Chloride 112 mmol/L (98-107); Creatinine, Serum 2.14 mg/dL (0.55-1.02); EST Glomerular Filtration Rate 24 mL/min (>60); Est Glom Filt Rate - Afr Amer 29 mL/min (>60); Globulin 2.8 g/dL (2.2-4.2); Glucose 96 mg/dL (74-106); Phosphorus 3.2 mg/dL (2.5-4.9); Potassium 5.1 mmol/L (3.5-5.1); Protein, Total 6.4 g/dL (6.4-8.2); Sodium Level 142 mmol/L (136-145); Uric Acid 3.1 mg/dL (2.6-6.0)
[2022-01-19 18:26] LABS: Vitamin D,25 Hydroxy 28.5 ng/mL
[2022-01-19 18:38] LABS: Anisocytosis RARE; Differential Comment SCANNED
[2022-01-20 08:20] LABS: PTHIN 404.6 pg/mL (18.4-80.1)
== END | disposition home or self-care (01) ==
PROVIDERS: PCP Nurse Practitioner Primary Care; Referring Provider Nurse Practitioner Adult Health; Visit Provider Nurse Practitioner Adult Health
DX: N18.4 Chronic kidney disease, stage 4 (severe) (principal); M06.4 Inflammatory polyarthropathy; N25.81 Secondary hyperparathyroidism of renal origin; D63.1 Anemia in chronic kidney disease; Z79.899 Other long term (current) drug therapy; M10.00 Idiopathic gout, unspecified site
CPT/HCPCS: 80053; 82306; 82570; 83970; 84100; 84156; 84550; 85025

== ENCOUNTER → 2022-01-22 | Outpatient (CLI) | payer MEDICARE, SELFPAY | END | disposition home or self-care (01) | LOC: MTLAB 15:25 | PROVIDERS: PCP Nurse Practitioner Primary Care; Referring Provider Nurse Practitioner Adult Health; Visit Provider Nurse Practitioner Adult Health | DX: N18.4 Chronic kidney disease, stage 4 (severe) (principal); N25.81 Secondary hyperparathyroidism of renal origin ==

== ENCOUNTER → 2022-07-20 | Outpatient (CLI) | payer MEDICARE, OTHER, SELFPAY ==
[2022-07-20 17:41] LABS: Absolute Lymphocyte Count 2.19 X10^3/uL (0.83-4.51); Absolute Neutrophil Count 4.4 X10^3/uL (2.0-7.7); Basophil# 0.08 X10^3/uL; Eosinophil# 0.43 X10^3/uL; Eosinophils% 5.6 % (0-5); Hematocrit 32.8 % (37-47); Hemoglobin 10.1 g/dL (12.0-15.0); Lymphocyte # 2.19 X10^3/ul (0.83-4.51); Lymphocyte % 28.4 % (19-41); Mean Corp Hgb Conc 30.8 g/dL (32-36); Mean Corpuscular Hgb 32.1 pg (27.0-32.0); Mean Corpuscular Volume 104.1 fL (81-99); Mean Platelet Vol. 10.7 fl (6.2-12.0); Monocyte# 0.56 X10^3/uL; Monocyte% 7.3 % (0-10); NRBC Flagged by Analyzer 0 % (0-5); Neutrophil % 57.2 % (47-70); Platelet Count 245 K/mm3 (150-450); RBC Distribution Width CV 16.5 % (11.6-14.6); RBC Distribution Width SD 61.4 fl (35.1-43.9); Red Blood Count 3.15 M/mm3 (4.2-5.4); White Blood Count 7.7 K/mm3 (4.4-11.0)
[2022-07-20 17:51] LABS: AST(SGOT) 24 U/L (15-37); Alanine Aminotransfer ALT/SGPT 16 U/L (13-56); Albumin, Serum 3.6 g/dL (3.2-5.0); Alkaline Phosphatase 109 U/L (45-117); Anion Gap 9 (5-15); BUN 29 mg/dL (7-18); BUN/Creat Ratio 11.7 RATIO (10-20); Calcium,Total 9.6 mg/dL (8.5-10.1); Chloride 112 mmol/L (98-107); Creatinine, Serum 2.47 mg/dL (0.55-1.02); EST Glomerular Filtration Rate 20 mL/min (>60); Est Glom Filt Rate - Afr Amer 24 mL/min (>60); Globulin 3.7 g/dL (2.2-4.2); Glucose 81 mg/dL (74-106); Potassium 5.4 mmol/L (3.5-5.1); Protein, Total 7.3 g/dL (6.4-8.2); Sodium Level 141 mmol/L (136-145); Uric Acid 3.6 mg/dL (2.6-6.0)
== END | disposition home or self-care (01) ==
PROVIDERS: PCP Nurse Practitioner Primary Care; Referring Provider Internal Medicine Rheumatology; Visit Provider Internal Medicine Rheumatology
DX: M06.4 Inflammatory polyarthropathy (principal); M10.00 Idiopathic gout, unspecified site; Z79.899 Other long term (current) drug therapy
CPT/HCPCS: 36415; 80053; 84550; 85025

== ENCOUNTER → 2022-10-21 | Outpatient (CLI) | payer MEDICARE, OTHER, SELFPAY ==
--- NOTE | 2022-10-21 14:30 | BD_ITS ---
STUDY: DUAL ENERGY X-RAY ABSORPTIOMETRY / DXA REASON FOR EXAM: Female, 77 years old. 733.00OsteoporosisBONE DENSITY REASON FOR EXAM TECHNIQUE: Bone Mineral Density (BMD) measurements of both forearms were obtained. COMPARISON: None. FINDINGS: Right Forearm: g/cm2 (0.412) / T-score (-3.1) / Z-score (-0.2) Left Forearm: g/cm2 (0.452) / T-score (-2.4) / Z-score (0.5) BD/Dexa Bone Density/Append Skel IMPRESSION: The patient is considered osteoporotic as outlined below according to World Yakov Organization (WHO) criteria with a high fracture risk. Reference Information: The T-score is the number of standard deviations above or below the standard which is normal for young adults at their peak bone mineral density. The World Health Organization (WHO) interprets the T-scores as follows: Above -1 Normal bone density Between -1 and -2.5 Osteopenia Equal to / or below -2.5 Osteoporosis As a practical clinical guideline, osteopenia may be graded as follows: Mild -1 through -1.5 Moderate -1.6 through -2.0 Severe -2.1 through -2.4 The Z-score is the number of standard deviations above or below age-matched controls. A Z-score of less than -1.5 would be considered abnormal. References: 1. NIH Osteoporosis and Related Bone Diseases www osteo.org 2. International Society for Clinical Densitometry www iscd.org 3. National Osteoporosis Foundation www nof.org Electronically Signed: Zachariah Cano MD at 12:35 EDT ,
== END | disposition home or self-care (01) ==
LOC: OPBD 14:09
PROVIDERS: PCP Nurse Practitioner Primary Care; Referring Provider Nurse Practitioner Primary Care; Visit Provider Nurse Practitioner Primary Care
DX: M81.0 Age-related osteoporosis without current pathological fracture (principal)
CPT/HCPCS: 77081

== ENCOUNTER → 2023-01-07 | Outpatient (CLI) | payer MEDICARE, OTHER, SELFPAY ==
[2023-01-07 18:46] LABS: Absolute Lymphocyte Count 3.02 X10^3/uL (0.83-4.51); Basophil# 0.12 X10^3/uL; Basophil% 1.3 % (0-1); Eosinophil# 0.44 X10^3/uL; Eosinophils% 4.7 % (0-5); Hematocrit 32.3 % (37-47); Hemoglobin 10.2 g/dL (12.0-15.0); Lymphocyte # 3.02 X10^3/ul (0.83-4.51); Lymphocyte % 32.2 % (19-41); Mean Corp Hgb Conc 31.6 g/dL (32-36); Mean Corpuscular Hgb 31.8 pg (27.0-32.0); Mean Corpuscular Volume 100.6 fL (81-99); Mean Platelet Vol. 11.2 fl (6.2-12.0); Monocyte# 0.74 X10^3/uL; Monocyte% 7.9 % (0-10); NRBC Flagged by Analyzer 0 % (0-5); Neutrophil # 5.01 X10^3/uL (2.7-7.7); Neutrophil % 53.5 % (47-70); Platelet Count 234 K/mm3 (150-450); RBC Distribution Width CV 15.5 % (11.6-14.6); RBC Distribution Width SD 56.1 fl (35.1-43.9); Red Blood Count 3.21 M/mm3 (4.2-5.4); White Blood Count 9.4 K/mm3 (4.4-11.0)
[2023-01-07 19:08] LABS: ALB/GLOB Ratio 1.1 RATIO (0.9-2.4); AST(SGOT) 24 U/L (15-37); Alanine Aminotransfer ALT/SGPT 16 U/L (13-56); Alkaline Phosphatase 92 U/L (45-117); Anion Gap 8 (5-15); BUN 34 mg/dL (7-18); Calcium,Total 9.3 mg/dL (8.5-10.1); Chloride 110 mmol/L (98-107); Creatinine, Serum 2.43 mg/dL (0.55-1.02); EST Glomerular Filtration Rate 20 mL/min (>60); Est Glom Filt Rate - Afr Amer 25 mL/min (>60); Globulin 3.6 g/dL (2.2-4.2); Glucose 94 mg/dL (74-106); Potassium 4.8 mmol/L (3.5-5.1); Protein, Total 7.6 g/dL (6.4-8.2); Sodium Level 138 mmol/L (136-145); Uric Acid 3.9 mg/dL (2.6-6.0)
== END | disposition home or self-care (01) ==
LOC: MTLAB 15:26
PROVIDERS: PCP Nurse Practitioner Primary Care; Referring Provider Internal Medicine Rheumatology; Visit Provider Internal Medicine Rheumatology
DX: M06.4 Inflammatory polyarthropathy (principal); M10.00 Idiopathic gout, unspecified site; N18.9 Chronic kidney disease, unspecified; M15.9 Polyosteoarthritis, unspecified; Z79.899 Other long term (current) drug therapy
CPT/HCPCS: 36415; 80053; 84550; 85025

== ENCOUNTER → 2023-07-04 | Outpatient (CLI) | payer MEDICARE, OTHER, SELFPAY ==
[2023-07-04 15:51] LABS: Absolute Lymphocyte Count 3.13 X10^3/uL (0.83-4.51); Absolute Neutrophil Count 4.7 X10^3/uL (2.0-7.7); Basophil# 0.08 X10^3/uL; Basophil% 0.9 % (0-1); Eosinophil# 0.38 X10^3/uL; Eosinophils% 4.2 % (0-5); Hematocrit 31.3 % (37-47); Lymphocyte # 3.13 X10^3/ul (0.83-4.51); Lymphocyte % 34.5 % (19-41); Mean Corp Hgb Conc 31.9 g/dL (32-36); Mean Corpuscular Hgb 31.7 pg (27.0-32.0); Mean Corpuscular Volume 99.4 fL (81-99); Mean Platelet Vol. 10.6 fl (6.2-12.0); Monocyte# 0.69 X10^3/uL; Monocyte% 7.6 % (0-10); NRBC Flagged by Analyzer 0 % (0-5); Neutrophil # 4.67 X10^3/uL (2.7-7.7); Neutrophil % 51.6 % (47-70); Platelet Count 241 K/mm3 (150-450); RBC Distribution Width CV 15.9 % (11.6-14.6); RBC Distribution Width SD 57.4 fl (35.1-43.9); Red Blood Count 3.15 M/mm3 (4.2-5.4); White Blood Count 9.1 K/mm3 (4.4-11.0)
[2023-07-04 16:13] LABS: AST(SGOT) 27 U/L (15-37); Alanine Aminotransfer ALT/SGPT 17 U/L (13-56); Albumin, Serum 3.8 g/dL (3.2-5.0); Alkaline Phosphatase 83 U/L (45-117); Anion Gap 7 (5-15); BUN 32 mg/dL (7-18); BUN/Creat Ratio 14.2 RATIO (10-20); Calcium,Total 9.6 mg/dL (8.5-10.1); Chloride 111 mmol/L (98-107); Creatinine, Serum 2.26 mg/dL (0.55-1.02); EST Glomerular Filtration Rate 22 mL/min (>60); Est Glom Filt Rate - Afr Amer 27 mL/min (>60); Globulin 3.8 g/dL (2.2-4.2); Glucose 85 mg/dL (74-106); Potassium 4.8 mmol/L (3.5-5.1); Protein, Total 7.6 g/dL (6.4-8.2); Sodium Level 139 mmol/L (136-145); Uric Acid 3.7 mg/dL (2.6-6.0)
== END | disposition home or self-care (01) ==
PROVIDERS: PCP Nurse Practitioner Primary Care; Referring Provider Internal Medicine Rheumatology; Visit Provider Internal Medicine Rheumatology
DX: M06.4 Inflammatory polyarthropathy (principal); M10.00 Idiopathic gout, unspecified site; Z79.899 Other long term (current) drug therapy
CPT/HCPCS: 36415; 80053; 84550; 85025

== ENCOUNTER 2024-07-06 14:20 | Emergency (ER) | payer MEDICARE, OTHER, SELFPAY ==
[2024-07-06 14:21] VITALS: BP 153/93; PULSE 114; RESP 18; TEMP 37; O2SAT 98; BMI 28.7
--- NOTE | 2024-07-06 14:41 | ED.VIS.FALL ---
HPI <DEYANIRA Sanchez - Last Filed: 07/06/24 15:49> HPI - Fall History of Present Illness Chief Complaint: Fall Narrative Narrative: 79-year-old female fell on her porch this morning landing on her right shoulder and knee. No head injury or LOC. She presents due to right shoulder pain. Prior to this fall she has had right shoulder pain and decreased range of motion over the last few weeks. Her primary care doctor did x-rays and thought it was a rotator cuff issue and she is scheduled to see them for a shoulder injection. With her new fall today she presents for evaluation. She has no weakness or numbness or tingling. She is mildly sore behind her right knee but is able to ambulate at baseline. 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 Heart valve problem GERD (gastroesophageal reflux disease) Osteopenia History of blood transfusion Back problem Allergies Back pain Limb weakness Difficulty balancing when standing Fatigue Anemia SOB (shortness of breath) Kidney disease Arthritis HTN (hypertension) Home Medications ?Medication ?Instructions ?Recorded ?Last Taken ?Type allopurinol 100 mg tablet 200 mg PO QHS GOUT 11/06/15 12/02/20 History bupropion HCl 300 mg 24 hr tablet, 300 mg PO DAILY ANTIDEPRESSANT 11/06/15 12/02/20 History extended release gabapentin 100 mg capsule 100 mg PO BID PAIN 11/06/15 12/02/20 History omeprazole 40 mg capsule,delayed 40 mg 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 11/06/15 12/02/20 History release folic acid 800 mcg tablet 800 mcg PO DAILY@0800 SUPPLEMENT 05/17/16 12/02/20 History losartan 100 mg tablet 100 mg PO QHS BP 11/15/17 12/02/20 History polysaccharide iron complex 150 mg 150 mg PO DAILYCM SUPPLEMENT 11/15/17 12/02/20 History iron capsule atorvastatin 40 mg tablet 40 mg PO DAILY Check with primary 05/03/19 12/02/20 History doctor carvedilol 25 mg tablet 25 mg PO BID Check with primary 05/03/19 12/02/20 History doctor nitroglycerin 0.4 mg sublingual 0.4 mg sublingual Q5M PRN cp 01/31/20 12/02/20 History tablet clopidogrel 75 mg tablet 75 mg PO DAILY ##0 03/11/20 12/02/20 Rx amlodipine 5 mg tablet 5 mg PO DAILY Check with primary 12/11/20 12/02/20 History doctor aspirin 81 mg tablet 81 mg PO DAILY Check with primary 12/11/20 12/02/20 History doctor calcitriol 0.5 mcg capsule 0.5 mcg PO DAILY Check with 12/11/20 12/02/20 History primary doctor ergocalciferol (vitamin D2) 1,250 1,250 mcg PO QWEEK Check with 12/11/20 12/02/20 History mcg (50,000 unit) capsule primary doctor ferrous sulfate 325 mg (65 mg 325 mg PO DAILY Check with primary 12/11/20 12/02/20 History iron) tablet,delayed release doctor leflunomide 20 mg tablet 20 mg PO DAILY Check with primary 12/11/20 12/02/20 History doctor methylprednisolone 4 mg tablets in See Rx Instructions PO PER PKG DIR 01/08/22 Unknown Rx a dose pack (Medrol ([place])) #21 tabs Allergy/AdvReac Type Severity Reaction Status Date / Time aspirin AdvReac not Verified 07/06/24 14:21 allowed to take aspirin codeine AdvReac Nausea Verified 07/06/24 14:21 morphine AdvReac Nausea Verified 07/06/24 14:21 NSAIDS (Non-Steroidal AdvReac not Verified 07/06/24 14:21 Anti-Inflamma supposed to take ramipril (From Altace) AdvReac COUGH Verified 07/06/24 14:21 Family History Mother Hypertension Kidney disease Depression Arthritis Anemia Father Hypertension Kidney disease Depression Arthritis Anemia Other History of blood transfusion Surgical History History of excision of lesion History of hip replacement History of tooth extraction History of neck surgery History of back surgery History of knee surgery History of tubal ligation History of tonsillectomy History of heart artery stent History of cardiac cath Social History household members: spouse Smoking Status: Never smoker alcohol intake: never substance use type: does not use additional social history: DOES TAKE ASPIRIN DOES TAKE IBUPROFEN NEEDED ROS <DEYANIRA Sanchez - Last Filed: 07/06/24 15:49> ROS ED ROS Narrative Constitutional: Negative for fever, chills, malaise. Eyes: Negative for visual change. ENT: Negative for sore throat, ear pain, rhinorrhea. CVS: Negative for palpitations, chest pain, syncope. Respiratory: Negative for shortness of breath, cough, orthopnea. GI: Negative for abdominal pain, nausea, vomiting, diarrhea, constipation, melena, hematochezia. : Negative for dysuria, hematuria or frequency. Neuro: Negative for headache, motor/sensory dysfunction. Skin: Negative for rash, abscess, or wound. Musc: Negative for joint pain, swelling, trauma. Heme: Negative for easy bruising, bleeding, lymphadenopathy. EXAM <DEYANIRA Sanchez - Last Filed: 07/06/24 15:49> Physical Exam Narrative Exam Narrative: CONST: Patient sitting in no acute distress. EYES: Normal inspection. HEAD: Normocephalic atraumatic. NECK: Normal inspection. RESP: No respiratory distress, CTAB. CVS: Regular rate and rhythm, no murmur, no gallop. SKIN: Color normal, no rash, warm, dry, intact. EXTREMITIES: Normal appearance of upper and lower extremities. No reproducible tenderness of the right shoulder but there is pain with passive range of motion. Active range of motion limited to about 60 degrees which was present prior to the fall. No tenderness of the elbow forearm wrist or hand. 2+ radial pulses. Normal motor and sensory function in median radial and ulnar distributions. Bilateral lower extremities appear normal. Right knee has a small bruise right inferior lateral to the patella. Normal extension. No effusion. No reproducible tenderness. 2+ DP pulses. NEURO: Alert and answering questions appropriately. PSYCH: Normal affect. Const Vital Signs: 07/06/24 14:21 07/06/24 15:36 Temperature 98.6 F 98.6 F Temperature Source Oral Pulse Rate 114 H 97 Respiratory Rate 18 18 Blood Pressure 153/93 H 152/77 H Blood Pressure Mean 113 102 Pulse Ox 98 97 Oxygen Delivery Method Room Air <Dr. Jaxson Vázquez MD - Last Filed: 07/06/24 14:57> Physical Exam Const Vital Signs: 07/06/24 14:21 07/06/24 15:36 Temperature 98.6 F 98.6 F Temperature Source Oral Pulse Rate 114 H 97 Respiratory Rate 18 18 Blood Pressure 153/93 H 152/77 H Blood Pressure Mean 113 102 Pulse Ox 98 97 Oxygen Delivery Method Room Air [facility] <DEYANIRA Sanchez - Last Filed: 07/06/24 15:49> [facility] Narrative Medical decision making narrative: Patient had a mechanical fall injuring her right shoulder and right knee. No head injury. She already had right shoulder pain and limited range of motion prior to the injury which sounds like a rotator cuff issue. She has chronically limited right shoulder range of motion from this but no new deficits. Upper and lower extremities neurovascularly intact. Right shoulder and knee x-rays negative. She is ambulatory and declined pain medication. She will ice and take Tylenol and follow-up with her doctors as needed. She was discharged in stable condition. Radiography Diagnostic Testing: Clinical Impression(s) from Imaging Studies Knee X-Ray 07/06/24 15:10 IMPRESSION: Mild degree of tricompartmental degenerative change without fracture. Reading Location: [id number] Shoulder X-Ray 07/06/24 15:10 IMPRESSION: Degenerative changes. No fracture or dislocation. Reading Location: [facility] ED attending interpretation of right shoulder shows no fracture or dislocation. ED attending interpretation of right knee shows osteoarthritis without acute fracture. <Dr. Jaxson Vázquez MD - Last Filed: 07/06/24 14:57> [facility] Radiography Diagnostic Testing: Clinical Impression(s) from Imaging Studies Knee X-Ray 07/06/24 15:10 IMPRESSION: Mild degree of tricompartmental degenerative change without fracture. Reading Location: [id number] Shoulder X-Ray 07/06/24 15:10 IMPRESSION: Degenerative changes. No fracture or dislocation. Reading Location: [facility] Treatment and Re-Evaluation Narrative: I have personally performed a face to face assessment of the patient and have reviewed the DERIAN Note. I performed a substantive portion of the visit including all aspects of the following. My beasley findings include: History is walking in from her deck after just having gotten up, lost her balance and fell to her right shoulder and right knee. Neck is little stiff but not painful. Did not hit her head. No loss of consciousness. No prodromal symptoms or dizziness. Able to walk after this with some mild soreness in the popliteal fossa of her right knee. Chronic pre-existing pain in her right shoulder, hurts worse anteriorly now. No new numbness. No other injuries. Exam is GCS 15 no signs of head or neck trauma or tenderness. She has some tenderness anterior right shoulder at the biceps tendon, she is able to move it in all directions limited at extremes, there is no tenderness at the acromion or the acromioclavicular joint or the proximal humerus otherwise. Clavicle nontender throughout. She has no knee tenderness. All ligaments are stable with short endpoints and minimal pain on stressing. Negative anterior and posterior drawer signs. Neurovascular intact distally throughout 4 extremities. Medical Decison Making three-view x-ray series of the right shoulder and my interpretation shows chronic changes compared with x-rays 1.5 weeks ago they are similar, no acute fractures. 4 view x-ray series of the right knee on my interpretation is negative for acute fracture. Supportive care advised patient is reassured, comfortable letting her go home and follow-up as scheduled for her right shoulder chronic issue. Other additions or changes: [None] Discharge Plan Triage Chief Complaint: Fall ED Midlevel Provider: Hortencia Morrissey ED Provider: Jaxson Vázquez Dx/Rx/DC Orders Clinical Impression: Acute pain of right shoulder, Acute pain of right knee Instructions: Communicating About Pain, The Shoulder Joint Prescriptions: No Action nitroglycerin 0.4 mg tablet, sublingual 0.4 mg SUBLINGUAL Q5M PRN (Reason: cp) Rx Instructions: do not exceed 3 doses per episode methylprednisolone [Medrol ([place])] 4 mg tablets,dose pack See Rx Instructions PO PER PKG DIR Qty: 21 0RF Rx Instructions: PO PER PKG DIR allopurinol 100 MG tablet 200 mg PO QHS Patient Comments: GOUT omeprazole 40 MG capsule 40 mg PO BID Patient Comments: STOMACH MED/ACID REFLUX gabapentin 100 MG capsule 100 mg PO BID Patient Comments: NERVE PAIN bupropion HCl 300 MG tablet extended release 24 hr 300 mg PO DAILY Patient Comments: ANTI DEPRESSANT folic acid 0.8 MG tablet 800 mcg PO DAILY@0800 Patient Comments: SUPPLEMENT losartan 100 MG tablet 100 mg PO QHS polysaccharide iron complex 150 MG capsule 150 mg PO DAILYCM Patient Comments: IRON SUPPLEMENT atorvastatin 40 MG tablet 40 mg PO DAILY carvedilol 25 MG tablet 25 mg PO BID clopidogrel 75 mg tablet 75 mg PO DAILY Qty: 0 0RF Rx Instructions: may resume tomorrow 03/12/20 amlodipine 5 mg tablet 5 mg PO DAILY leflunomide 20 mg Tablet 20 mg PO DAILY calcitriol 0.5 mcg Capsule 0.5 mcg PO DAILY aspirin 81 mg Tablet 81 mg PO DAILY ergocalciferol (vitamin D2) 1,250 mcg (50,000 unit) Capsule 1,250 mcg PO QWEEK ferrous sulfate 325 mg (65 mg iron) Tablet,Delayed Release (Dr/Ec) 325 mg PO DAILY Primary Care Provider: Evangelina Reddy NP Referrals: Evangelina Reddy NP, [facility] [Primary Care Provider] - Activity Restrictions/Additional Instructions: X-rays show no signs of broken bones or dislocation. Ice and take Tylenol as needed and follow-up with your doctor regarding your ongoing shoulder issue. Print Language: Niuean Disposition Disposition: Home, Self Care Discharge Date/Time: 07/06/24 15:37
--- NOTE | 2024-07-06 15:10 | RAD_ITS ---
PROCEDURE: KNEE 4 OR MORE VIEWS 07/06/2024 REASON FOR EXAM: PAIN TECHNIQUE: 4 view(s) of the right knee COMPARISON: None FINDINGS: Bones: No fracture. No suspicious bone lesion. Joints: Mild degree of tricompartmental joint space narrowing and degenerative changes. Effusion: No effusion. Soft tissues: Soft tissues are unremarkable. Other: RAD/Knee 4 or More Views IMPRESSION: Mild degree of tricompartmental degenerative change without fracture. Reading Location: [id number]
--- NOTE | 2024-07-06 15:10 | RAD_ITS ---
PROCEDURE: SHOULDER MIN 2 VIEWS 07/06/2024 REASON FOR EXAM: PAIN TECHNIQUE: Four views of the right shoulder were obtained. COMPARISON: Prior study dated June 27, 2024. FINDINGS: Bones: No fracture is seen. Joints: Mild degree of degenerative changes of the glenohumeral joint as well as the acromioclavicular joint. No fracture is seen. Soft tissues: Unremarkable Other: Electrodes from a spinal cord stimulator device are seen. RAD/Shoulder min 2 Views IMPRESSION: Degenerative changes. No fracture or dislocation. Reading Location: [id number]
[2024-07-06] MEDS: Acetaminophen 325 MG Tablet 650 MG PO (15:23)
[2024-07-06 15:36] VITALS: BP 152/77; PULSE 97; RESP 18; TEMP 37; O2SAT 97
== END 2024-07-06 15:37 | disposition home or self-care (01) ==
PROVIDERS: Emergency Provider Emergency Medicine; PCP Nurse Practitioner Primary Care; Visit Provider Emergency Medicine
DX: M25.511 Pain in right shoulder (principal); M25.561 Pain in right knee
CPT/HCPCS: 73030; 73564; 99282